=== PATIENT | male | born 1970 | race Caucasian/White ===

== ENCOUNTER 2017-09-25 11:41 | Inpatient (IN) | payer BC ==
[2017-09-25] MEDS ORDERED: Diltiazem IV* 5 MG/ML 5 ML VIAL (for loading dose/IV Push) (25 MG) IV SLOW PU ONE (12:12)
[2017-09-25 12:29] LABS: ABS Basophils 0.1 10^3/ul (0-0.2); ABS Eosinophils 0.1 10^3/ul (0-0.6); ABS Monocytes 0.8 10^3/ul (0-0.8); ABS Neutrophils 6.2 10^3/ul (1.5-7.7); ABS Nucleated RBC 0 10^3/ul; Eosinophil % 0.7 % (0-6); Hematocrit 49 % (42-52); Hemoglobin 16.4 g/dl (14.0-18.0); Lymphocyte % 21.7 % (25-47); Mean Corpuscular HGB Conc 34 g/dl (31-36); Mean Corpuscular Hemoglobin 31 pg (27-31); Mean Corpuscular Volume 91 fL (80-94); Mean Platelet Volume 9.1 um3 (7.4-10.4); Nucleated Red Blood Cells % 0.1; Platelet Count 249 10^3/ul (150-450); Red Blood Count 5.31 10^6/ul (4.00-5.40); Red Cell Distribution Width 13 % (10.5-15); White Blood Count 9.1 10^3/ul (3.5-10.8)
[2017-09-25 12:37] LABS: INR 1.09 (0.77-1.02)
[2017-09-25 12:53] LABS: EGFR Non-African American 71.8 (>60)
--- NOTE | 2017-09-25 12:57 | RAD ---
Indication: Shortness of breath. Single frontal view of the chest performed at 1224 hours was reviewed. Comparison is made with previous exam dated October 10, 2006. Large diaphragmatic hernia containing stomach is noted. This is unchanged from previous exam. Mild vascular congestion is noted. IMPRESSION: LARGE DIAPHRAGMATIC HERNIA CONTAINING STOMACH APPEARING SIMILAR TO THAT SEEN PREVIOUSLY. INTERSTITIAL EDEMA IS NOTED.
[2017-09-25] MEDS ORDERED: Diltiazem DRIP* 100 MG/100 ML ADDV.BAG IVPB ONE (13:05)
[2017-09-25] MEDS ORDERED: Diltiazem IV VIAL* 125 MG in NS 0.9% 100 ML* 100 ML IV ONE ×2 (14:00→14:58)
[2017-09-25] MEDS ORDERED: Furosemide IV* 10 MG/ML 2 ML VIAL (20 MG) IV ONE (14:14)
--- NOTE | 2017-09-25 14:40 | ED ---
Burak Fisher Tiffany, scribed for Joe Chaudhari on 09/25/17 at 1208 . Dizziness - HPI Summary HPI Summary: 46 year old M presenting to [facility] complains of intermittent episodes of dizziness followed by diaphoresis since 2 weeks ago, worse since 09:00 today. Symptoms aggravated by nothing. Symptoms alleviated by nothing. Patient reports shortness of breath. Patient denies chest pain, bilateral leg edema. Denies cardiac hx. Fhx cardiac disease. - History Of Current Complaint Chief Complaint: EDDysrhythmPalp Stated Complaint: DIZZINESS Time Seen by Provider: 09/25/17 11:49 Hx Obtained From: Patient Timing: Intermittent Episode Lasting Aggravating Factor(s): Nothing Alleviating Factor(s): Nothing Associated Signs And Symptoms: Positive: Other: - diaphoresis, shortness of breath;NEGATIVE: chest pain, bilateral leg edema. - Allergies/Home Medications Allergies/Adverse Reactions: Allergies Allergy/AdvReac Type Severity Reaction Status Date / Time No Known Allergies Allergy Verified 09/25/17 11:48 Home Medications: Home Medications Cyclobenzaprine TAB* [Flexeril 10 MG TAB*] 10 mg PO TID PRN 09/25/17 [History Confirmed 09/25/17] PMH/Surg Hx/FS Hx/Imm Hx Previously Healthy: No Endocrine/Hematology History: Denies: Hx Diabetes Cardiovascular History: Denies: Hx Hypertension, Hx Pacemaker/ICD Respiratory History: Reports: Hx Asthma Denies: Hx Chronic Obstructive Pulmonary Disease (COPD) GI History: Reports: Hx Hiatal Hernia Sensory History: Denies: Hx Hearing Aid Psychiatric History: Denies: Hx Panic Disorder - Surgical History Surgery Procedure, Year, and Place: none Infectious Disease History: No Infectious Disease History: Denies: Traveled Outside the [place] in Last 30 Days - Family History Known Family History: Positive: Cardiac Disease - Social History Alcohol Use: None Hx Substance Use: No Substance Use Type: Reports: None Hx Tobacco Use: Yes Smoking Status (MU): Current Every Day Smoker Type: Cigarettes Amount Used/How Often: 1/2 PPD Review of Systems Positive: Skin Diaphoresis Negative: Chest Pain Positive: Shortness Of Breath Negative: Edema Neurological: Other - Dizziness All Other Systems Reviewed And Are Negative: Yes Physical Exam - Summary Physical Exam Summary: Appearance: Well appearing, no pain distress Skin: warm, dry, reflects adequate perfusion Head/face: normal Eyes: EOMI, JUANITO ENT: normal Neck: supple, non-tender Respiratory: CTA, breath sounds present Cardiovascular: tachycardia Abdomen: non-tender, soft Bowel: present Musculoskeletal: normal, strength/ROM intact Neuro: normal, sensory motor intact, A&Ox3 Triage Information Reviewed: Yes Vital Signs On Initial Exam: Initial Vitals Temp Pulse Resp BP Pulse Ox 97.7 F 143 20 130/96 93 09/25/17 11:45 09/25/17 11:45 09/25/17 11:45 09/25/17 11:45 09/25/17 11:45 Vital Signs Reviewed: Yes Diagnostics - Vital Signs Vital Signs Temp Pulse Resp BP Pulse Ox 09/25/17 11:45 97.7 F 143 20 130/96 93 - Laboratory Lab Results: Lab Results 09/25/17 09/25/17 09/25/17 Range/Units 12:10 12:10 12:10 WBC 9.1 (3.5-10.8) 10^3/ul RBC 5.31 (4.00-5.40) 10^6/ul Hgb 16.4 (14.0-18.0) g/dl Hct 49 (42-52) % MCV 91 (80-94) fL MCH 31 (27-31) pg MCHC 34 (31-36) g/dl RDW 13 (10.5-15) % Plt Count 249 (150-450) 10^3/ul MPV 9.1 (7.4-10.4) um3 Neut % (Auto) 68.1 (38-83) % Lymph % (Auto) 21.7 L (25-47) % [facility] % (Auto) 8.8 H (0-7) % Eos % (Auto) 0.7 (0-6) % Baso % (Auto) 0.7 (0-2) % Absolute Neuts (auto) 6.2 (1.5-7.7) 10^3/ul Absolute Lymphs (auto) 2.0 (1.0-4.8) 10^3/ul Absolute Monos (auto) 0.8 (0-0.8) 10^3/ul Absolute Eos (auto) 0.1 (0-0.6) 10^3/ul Absolute Basos (auto) 0.1 (0-0.2) 10^3/ul Absolute Nucleated RBC 0 10^3/ul Nucleated RBC % 0.1 INR (Anticoag Therapy) 1.09 H (0.77-1.02) APTT 32.1 (26.0-36.3) seconds Sodium 140 (135-145) mmol/L Potassium 4.0 (3.5-5.0) mmol/L Chloride 102 (101-111) mmol/L Carbon Dioxide 29 (22-32) mmol/L Anion Gap 9 (2-11) mmol/L BUN 11 (6-24) mg/dL Creatinine 1.10 (0.67-1.17) mg/dL Est GFR ( Amer) 86.8 (>60) Est GFR (Non-Af Amer) 71.8 (>60) BUN/Creatinine Ratio 10.0 (8-20) Glucose 111 H (70-100) mg/dL Lactic Acid (0.5-2.0) mmol/L Calcium 9.6 (8.6-10.3) mg/dL Magnesium 1.8 L (1.9-2.7) mg/dL Total Bilirubin 0.80 (0.2-1.0) mg/dL AST 18 (13-39) U/L ALT 13 (7-52) U/L Alkaline Phosphatase 49 (34-104) U/L Troponin I 0.03 (<0.04) ng/mL B-Natriuretic Peptide ( - 100) pg/mL Total Protein 7.1 (6.4-8.9) g/dL Albumin 4.1 (3.2-5.2) g/dL Globulin 3.0 (2-4) g/dL Albumin/Globulin Ratio 1.4 (1-3) TSH 1.47 (0.34-5.60) mcIU/mL 09/25/17 09/25/17 Range/Units 12:10 12:10 WBC (3.5-10.8) 10^3/ul RBC (4.00-5.40) 10^6/ul Hgb (14.0-18.0) g/dl Hct (42-52) % MCV (80-94) fL MCH (27-31) pg MCHC (31-36) g/dl RDW (10.5-15) % Plt Count (150-450) 10^3/ul MPV (7.4-10.4) um3 Neut % (Auto) (38-83) % Lymph % (Auto) (25-47) % [facility] % (Auto) (0-7) % Eos % (Auto) (0-6) % Baso % (Auto) (0-2) % Absolute Neuts (auto) (1.5-7.7) 10^3/ul Absolute Lymphs (auto) (1.0-4.8) 10^3/ul Absolute Monos (auto) (0-0.8) 10^3/ul Absolute Eos (auto) (0-0.6) 10^3/ul Absolute Basos (auto) (0-0.2) 10^3/ul Absolute Nucleated RBC 10^3/ul Nucleated RBC % INR (Anticoag Therapy) (0.77-1.02) APTT (26.0-36.3) seconds Sodium (135-145) mmol/L Potassium (3.5-5.0) mmol/L Chloride (101-111) mmol/L Carbon Dioxide (22-32) mmol/L Anion Gap (2-11) mmol/L BUN (6-24) mg/dL Creatinine (0.67-1.17) mg/dL Est GFR ( Amer) (>60) Est GFR (Non-Af Amer) (>60) BUN/Creatinine Ratio (8-20) Glucose (70-100) mg/dL Lactic Acid 1.5 (0.5-2.0) mmol/L Calcium (8.6-10.3) mg/dL Magnesium (1.9-2.7) mg/dL Total Bilirubin (0.2-1.0) mg/dL AST (13-39) U/L ALT (7-52) U/L Alkaline Phosphatase (34-104) U/L Troponin I (<0.04) ng/mL B-Natriuretic Peptide 347 H ( - 100) pg/mL Total Protein (6.4-8.9) g/dL Albumin (3.2-5.2) g/dL Globulin (2-4) g/dL Albumin/Globulin Ratio (1-3) TSH (0.34-5.60) mcIU/mL Result Diagrams: 09/25/17 12:10 09/25/17 12:10 Lab Statement: Any lab studies that have been ordered have been reviewed, and results considered in the medical decision making process. - Radiology CXR Radiology Interpretation Completed By: Radiologist - LARGE DIAPHRAGMATIC HERNIA CONTAINING STOMACH APPEARING SIMILAR TO THAT SEEN PREVIOUSLY. INTERSTITIAL EDEMA IS NOTED. ED physician has reviewed this report. - EKG 11:57 Cardiac Rate: Tachycardia - 144 BPM EKG Rhythm: Sinus Tachycardia Dizzy Course/Dx - Course Course Of Treatment: 46 year old M presenting to [facility] complains of intermittent episodes of dizziness followed by diaphoresis since 2 weeks ago, worse since 09:00 today. Bloodwork/UA obtained. CXR/EKG obtained. Patient will be admitted to Dr. San, hospitalist, for further evaluation. - Diagnoses Differential Diagnosis/HQI/PQRI: Dysrhythmia, Metabolic Abnormality Provider Diagnoses: Chest pain, Atrial flutter - Provider Notifications Discussed Care Of Patient With: Tobias Sna Time Discussed With Above Provider: 14:07 Instructed by Provider To: Other - Dr. San, hospitalist, agrees to admit patient. - Critical Care Time Critical Care Time: 30-74 min - 30 min Discharge - Sign-Out/Discharge Documenting (check all that apply): Discharge/Admit/Transfer - admit - Discharge Plan Condition: Fair Disposition: ADMITTED TO [facility] Referrals: Familia Taveras MD [Primary Care Provider] - - Billing Disposition and Condition Condition: FAIR Disposition: Admitted to [facility] The documentation as recorded by the Burak jiménez Tiffany accurately reflects the service I personally performed and the decisions made by , Joe Chaudhari.
[2017-09-25] MEDS ORDERED: Albuterol 2.5 MG/3 ML NEB.SOL* (0.083%) INH PRN (14:59)
[2017-09-25] MEDS ORDERED: Magnesium Hydroxide LIQ* 30 ML UDC PO PRN (14:59)
[2017-09-25] MEDS ORDERED: Al Hydrox/Mg Hydrox/Simet LIQ* 30 ML UDC PO PRN (14:59)
[2017-09-25] MEDS ORDERED: Cyclobenzaprine TAB* 10 MG PO PRN (15:03)
[2017-09-25] MEDS ORDERED: Metoprolol Tartrate TAB* 50 mg PO ONE (15:28)
[2017-09-25] MEDS ORDERED: Aspirin 81 mg CHEW TAB* 81 MG TAB.CHEW PO ONE (15:29)
--- NOTE | 2017-09-25 18:16 | HP ---
CC: Dr. Taveras.* ADMISSION HISTORY AND PHYSICAL: DATE OF ADMISSION: 09/25/17. PATIENT OF ATTENDING HOSPITALIST: Dr. Chandra San.* (DICTATED BY MAMADOU AGUILAR) PRIMARY CARE PHYSICIAN: Dr. Taveras. CHIEF COMPLAINT: 1. Dizziness. 2. Shortness of breath. 3. Diaphoresis. 4. Palpitations. HISTORY OF PRESENT ILLNESS: Mr. Grubbs is a 46-year-old gentleman who carries past medical history significant for chronic back pain as well as kyphosis, who presented to the emergency room today with complaints of 3 weeks' history of intermittent dizziness with associated shortness of breath, diaphoresis, and palpitations usually with exertion. The patient notes that for the past 2 to 3 weeks, he has noticed increasing dizziness and shortness of breath with minimal exertion, associated with diaphoresis and palpitations. However, he denies any chest pain, nausea, vomiting, or other associated symptoms. He had never been seen by a carbide operator in the past and never had any cardiac workup. He does not have any significant past medical history with the exception of obesity and chronic back pain related to kyphosis that was diagnosed when he was in high school and elected not proceed with surgery. He denies any fevers, chills, abdominal pain, back pain rather than his baseline back pain discomfort. He is a former smoker, who quit just a few days ago and used to smoke 1 pack per day for approximately past 30 years. He has significant family history of diabetes mellitus and coronary artery disease and his dad had NM at an early age. He was evaluated in the emergency room and noticed to have negative troponin. However, his EKG showed sinus tachycardia with questionable atrial flutter for which we were asked to see the patient for further evaluation of his dysrhythmia. At the time of admission, the patient was comfortable, denies any palpitations or chest pain. PAST MEDICAL HISTORY: As mentioned above, is significant for: 1. Chronic back pain secondary to kyphosis. 2. Morbid obesity. PAST SURGICAL HISTORY: None. CURRENT MEDICATIONS: Include: 1. Flexeril 10 mg p.o. t.i.d. 2. Ultram 100 mg p.o. q. 8 hours p.r.n. for pain. ALLERGIES: He has no known drug allergies. FAMILY HISTORY: Significant for diabetes mellitus and history of myocardial infarction in his dad as well. SOCIAL HISTORY: The patient is a former smoker, used to smoke 1 pack per day for 30 years and quit smoking a week ago. He denies alcohol intake and caffeine intake is minimal. 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 His healthcare proxy is carried by his . REVIEW OF SYSTEMS: See HPI, otherwise 14 points review of systems were evaluated and they were otherwise negative. PHYSICAL EXAMINATION GENERAL: He is a pleasant, obese gentleman, appears comfortable and in no acute distress or discomfort at the time of admission. VITAL SIGNS: Reveal blood pressure of 113/87, pulse of 142, temperature of 97.7 , respirations of 19 with O2 sat of 93% on room air. HEENT: Head is normocephalic, atraumatic. Sclerae anicteric. PERRLA. EOMs intact. Oropharynx is pink and moist. NECK: Supple. Trachea midline. No cervical adenopathy, thyromegaly, or JVD. LUNGS: Clear to auscultation bilaterally. HEART: Regular rate with a rapid rhythm, consistent with tachycardia. There were no rubs, murmurs or gallops. BACK: With a noticeable kyphotic curve at the thoracic spine. No tenderness noted on exam. ABDOMEN: Round, obese, nontender, and nondistended. No hernias, masses, or hepatosplenomegaly. EXTREMITIES: Without cyanosis, clubbing, or edema. NEUROLOGIC: He is awake, alert, and oriented x4, and neurological exam was grossly normal. RECTAL: Exam deferred at this time. LABORATORY WORKUP: CBC with white count of 9000, hemoglobin 16.4, hematocrit of 49, and platelets of 249. His chemistry panel with sodium of 140, potassium 4.0, chloride 102, CO2 29, BUN of 11, creatinine 1.1. His glucose is 111, lactic acid 1.5, magnesium 1.8. Troponin 0.03 first draw, and the second draw 3 hours later was 0.02. BNP was elevated with value of 347. His TSH is 1.47. ACCESSORY DIAGNOSTIC DATA: As mentioned above, his EKG revealed evidence of sinus tachycardia at a rate of 140 beats per minute. Chest x-ray revealing a large diaphragmatic hernia containing a portion of the stomach, appears similar to a previous study and he has some interstitial edema noted as well. ASSESSMENT: A 46-year-old gentleman with a past medical history significant for chronic back pain and obesity, who presented to the emergency room with a 2 to 3 weeks' history of intermittent dizziness, palpitations, shortness of breath on exertion, and found to have an EKG consistent with sinus tachycardia and questionable atrial flutter. PLAN: 1. Tachycardia. The patient will be admitted to telemetry unit for observation. Cardizem drip was initiated in the emergency room initially at 5 mg per hour and now at 10 mg per hour. We will also give him a dose of metoprolol for rate control as well as a dose of 81 mg of aspirin. He appears to be comfortable and has no ongoing symptoms related to his palpitations. The patient has risk factors for coronary syndrome including his age, morbid obesity , and strong family history. He has never had any cardiac workup done in the past. I will obtain a trending troponin. Check lipid panel in the morning and proceed with nuclear stress test and echocardiogram in the morning. I discussed with the patient all the possible scenario related to his palpitations , tachycardia, and he is agreeable to the plan of care. 2. Chronic back pain secondary to thoracic spine kyphosis. This has been a chronic issue for the patient and appears to be stable at this time. We will continue his tramadol and Flexeril as needed for pain or muscle spasm. 3. Morbid obesity. Supportive care. 4. Shortness of breath with elevated BNP likely in the setting of pulmonary edema. He appears to be stable with good sats and his blood pressure has been stable as well. I will discuss this with my attending if a dose of Lasix will be beneficial. 5. DVT prophylaxis. The patient is moderate risk and we will cover him with sequential stocking device for the time being. 6. Code status. He is a full code. 7. Disposition. Admit to Telemetry for observation. Await resolution of his tachycardia. Cardiac workup in the morning including a stress test, echocardiogram, and await results. TIME SPENT: Approximately 60 minutes were spent admitting this patient, with greater than 50% on taking history and performing physical exam. I have discussed the case with Dr. San, who agreed to the plan of care. MAMADOU AGUILAR [id number]/[facility] #: [id number] FRANCIS
[2017-09-25] MEDS ORDERED: NS 0.9% 500 ML* 500 ML IV ONE (18:35)
[2017-09-25] MEDS ORDERED: Diltiazem IV VIAL* 125 MG in NS 0.9% 100 ML* 100 ML IV SCH ×3 (19:00→21:00)
[2017-09-25] MEDS ORDERED: Iohexol 350* (CONTRAST) 500 ML MDV IV ONE (20:00)
--- NOTE | 2017-09-25 20:39 | RAD ---
INDICATION: Chest pain. Short of breath. Intrathoracic stomach. Interstitial edema. Evaluate for pulmonary embolus. COMPARISON: Chest x-ray September 25, 2017 TECHNIQUE: Axial source images were obtained from the thoracic inlet to the hemidiaphragms following administration of [address] angiographic technique was utilized. Coronal and sagittal reconstructed images were acquired. CHEST FINDINGS: Neck/thyroid: The visualized neck to include the thyroid appear normal. Chest wall: There are no acute abnormalities of the bony thorax or chest wall. There is osteopenia with kyphosis There is no supraclavicular, infraclavicular, or axillary lymphadenopathy. Lungs : There is interstitial edema with bibasilar atelectasis. There is no focal consolidation. Cardiomediastinal structures: There is no CT evidence of acute pulmonary embolic disease. The heart is normal in size. There is no pericardial effusion. There is no evidence of aortic aneurysm or dissection. There is no mediastinal or hilar adenopathy. The esophagus appears normal. Pleura : There are no pleural-based masses or effusions. Other: There is a large diaphragmatic defect with herniation of the stomach which is horizontally oriented within the chest. There is also herniation of portions of both the right and left colon. The visceral contents compromise aeration of the lower lung hoffman and exert mass effect upon the mediastinal structures. IMPRESSION: NO CT EVIDENCE OF ACUTE PULMONARY EMBOLIC DISEASE. LARGE DIAPHRAGMATIC DEFECT DESCRIBED.
[2017-09-25] MEDS ORDERED: Furosemide IV* 10 MG/ML 10 ML VIAL (100 MG) IV ONE (20:52)
--- NOTE | 2017-09-26 01:00 | DS ---
Date of Admission: Date of Discharge: Discharge Diagnoses HPI Hospital Course Discharge Exam Radiology Exams Discharge Medications NEW RESUME STOP Discharge Activity: Discharge Diet: Follow Up/CC Time for Discharge:
[2017-09-26] MEDS ORDERED: Diltiazem IV VIAL* 125 MG in NS 0.9% 100 ML* 100 ML IV SCH (05:43)
[2017-09-26 05:53] LABS: ABS Basophils 0.1 10^3/ul (0-0.2); ABS Eosinophils 0.1 10^3/ul (0-0.6); ABS Lymphocytes 2.4 10^3/ul (1.0-4.8); ABS Monocytes 0.9 10^3/ul (0-0.8); ABS Neutrophils 5.4 10^3/ul (1.5-7.7); ABS Nucleated RBC 0 10^3/ul; Hematocrit 48 % (42-52); Hemoglobin 15.6 g/dl (14.0-18.0); Lymphocyte % 26.9 % (25-47); Mean Corpuscular HGB Conc 33 g/dl (31-36); Mean Corpuscular Hemoglobin 30 pg (27-31); Mean Corpuscular Volume 92 fL (80-94); Mean Platelet Volume 9.5 um3 (7.4-10.4); Nucleated Red Blood Cells % 0.1; Platelet Count 235 10^3/ul (150-450); Red Blood Count 5.16 10^6/ul (4.00-5.40); Red Cell Distribution Width 13 % (10.5-15); White Blood Count 8.8 10^3/ul (3.5-10.8)
[2017-09-26 06:02] LABS: EGFR Non-African American 73.3 (>60)
[2017-09-26] MEDS ORDERED: Perflutren Lipid Microsphere* 3 ML VIAL ONE (07:53)
[2017-09-26] MEDS ORDERED: Metoprolol Tartrate TAB* 50 mg PO SCH (08:00)
[2017-09-26] MEDS ORDERED: Aspirin 81 mg CHEW TAB* 81 MG TAB.CHEW PO ONE (08:45)
--- NOTE | 2017-09-26 08:51 | ECHO ---
Patient: PIPE MONTALVO [facility] Rec#: [id number] : 1970 Date: 09/26/2017 Age: 46y Height: 190.5 cm / 75.0 in Weight: 136.53 kg / 300.9 lbs Sex: M BSA: 2.61 Room#: 431 Admit Date#: 09/25/2017 Type: Inpatient Referring: Renard Francois Reading: Fabrice Dey MD Flakeboard Line Tender: Nicolasa Copeland RDCS CC: Familia Taveras MD Transthoracic Echocardiogram Indication: Palpitations, dyspnea. BP: 104/56 HR: 83 Rhythm: A-Flutter Findings History: Morbid obesity, former smoker, 2-3 weeks of dyspnea and dizziness. Technical Comments: The study is technically difficult. The study is technically limited due to patient body habitus. Completed at 0840. Left Ventricle: The left ventricular chamber size is mildly dilated. There is no left ventricular hypertrophy. There is global hypokinesis of the left ventricle with minor regional variation. There is severely decreased left ventricular systolic function. The estimated ejection fraction is 20-25%. There is septal flattening of the interventricular septum consistent with right ventricular volume or pressure overload. The assessment of diastolic function is non-diagnostic. Left Atrium: The left atrium is mildly dilated. Right Ventricle: The right ventricle is not well visualized. The right ventricle is mildly dilated. The right ventricular global systolic function is moderately reduced. Right Atrium: The right atrium is mildly dilated. Aortic Valve: The aortic valve is trileaflet. The aortic valve leaflets are mildly thickened. There is a trace of aortic regurgitation. There is no evidence of aortic stenosis. Mitral Valve: The mitral valve leaflets are mildly thickened. There is mild mitral regurgitation. There is no evidence of mitral stenosis. Tricuspid Valve: The tricuspid valve structure is not well visualized. There is mild tricuspid regurgitation. The right ventricular systolic pressure is estimated at 38 mmHg. There is evidence of mild pulmonary hypertension. There is no tricuspid stenosis. Pulmonic Valve: The pulmonic valve appears normal. There is mild pulmonic regurgitation. There is no pulmonic stenosis. Pericardium: There is no significant pericardial effusion. A pericardial fat pad is visualized. Aorta: There is no dilatation of the ascending aorta. There is no dilatation of the aortic arch. The aortic root is normal in size. Pulmonary Artery: The main pulmonary artery appears normal. Venous: The inferior vena cava is dilated. There is less than 50% respiratory change in the inferior vena cava dimension. Contrast: Definity was used to optimize study. 4 mL of diluted Definity was utilized. Intravenous contrast was used to enhance endocardial border definition. Summary: There was not any prior study for comparison. Conclusions Atrial fibrillation or atrial flutter during exam. There is severely decreased left ventricular systolic function. There is septal flattening of the interventricular septum consistent with right ventricular volume or pressure overload. The left atrium is mildly dilated. The right ventricle is mildly dilated. The right ventricular global systolic function is moderately reduced. The right atrium is mildly dilated. The aortic valve leaflets are mildly thickened. There is a trace of aortic regurgitation. There is mild mitral regurgitation. There is mild tricuspid regurgitation. The right ventricular systolic pressure is estimated at 38 mmHg. There is evidence of mild pulmonary hypertension. There is mild pulmonic regurgitation. Measurements Name Value Normal Range RVIDd (AP) 2D 3.5 cm (0.9 - 2.6) RVDdMajor (2D) 4.8 cm (2.2 - 4.4) RVAW (2D) 0.7 cm (0.2 - 0.5) RAd ISD 4CH 5.2 cm (3.4 - 4.9) RA (A4C)W 4.9 cm (2.9 - 4.6) IVSd (2D) 1 cm (0.6 - 1) LVPWd (2D) 1 cm (0.6 - 1) LVIDd (2D) 5.8 cm (3.6 - 5.4) LVIDs (2D) 5.3 cm - LV FS (2D) 9 % (25 - 45) Aortic Annulus 2.3 cm (1.4 - 2.6) Ao root diameter (2D) 3.2 cm (2.1 - 3.5) Ascending Ao 3.2 cm (2.1 - 3.4) Aortic arch 3 cm (1.8 - 3.4) LA dimension (AP) 2D 4.3 cm (2.3 - 3.8) LAd ISD 4CH 5.4 cm (2.9 - 5.3) LA ISD 4CH W 4.8 cm (2.5 - 4.5) Name Value Normal Range LA ESV SP 4CH (A/L) 60 ml - LA ESV SP 2CH (A/L) 115 ml - LA ESV BP (A/L) 91 ml - LA ESV BP (A/L) index 35 ml/m2 - LA ESV SP 4CH (MOD) 53 ml - LA ESV SP 2CH (MOD) 109 ml - Name Value Normal Range MV E-wave Vmax 1.01 m/sec - MV deceleration time 132.5 msec - MV A-wave Vmax 0.58 m/sec - MV E:A ratio 1.77 ratio - LV septal e' Vmax 0.06 m/sec - LV lateral e' Vmax 0.05 m/sec - LV E:e' septal ratio 16.83 ratio - LV E:e' lateral ratio 20.2 ratio - Name Value Normal Range AV Vmax 1 m/sec - AV VTI 21.25 cm - AV peak gradient 4.07 mmHg - AV mean gradient 2.53 mmHg - LVOT Vmax 0.77 m/sec - LVOT VTI 13.1 cm - LVOT peak gradient 2.36 mmHg - LVOT mean gradient 1.38 mmHg - FLORENCE Vmax 0.75 m/sec - Name Value Normal Range TR Vmax 2.4 m/sec - TR peak gradient 23 mmHg - RAP 15 mmHg - RVSP 38 mmHg - IVC diameter 2.3 cm - Name Value Normal Range PV Vmax 0.69 m/sec - PV peak gradient 1.9 mmHg -
[2017-09-26] MEDS ORDERED: Metoprolol Tartrate IV* 1 MG/ML 5 ML VIAL IV PRN ×2 (09:47→12:05)
[2017-09-26] MEDS: Apixaban* 5 MG TAB PO SCH ×2 (11:18→21:57)
--- NOTE | 2017-09-26 13:10 | RAD ---
INDICATION: Palpitations. COMPARISON: September 25, 2017 CT chest. TECHNIQUE: 10.400 mCi of Tc-99m Myoview were administered IV. SPECT images of the heart were obtained. REPORT AND IMPRESSION: #. The resulting resting scintigraphic images are nondiagnostic due to distortion of the mediastinum and soft tissue attenuation resulting from the massive hiatal hernia with anterior displacement of the heart by the intrathoracic stomach. On this basis the stress portion of the exam was canceled.
[2017-09-26] MEDS ORDERED: fentaNYL* 50 MCG/ML 2 ML VIAL (100 MCG VIAL) ONE (13:30)
[2017-09-26] MEDS ORDERED: Naloxone* 0.4 MG/ML 1 ML VIAL ONE (13:30)
[2017-09-26] MEDS ORDERED: Flumazenil* 0.1 MG/ML 5 ML MDV ONE (13:30)
[2017-09-26] MEDS ORDERED: Midazolam* 1 MG/ML 10 ML VIAL (10 MG) ONE (13:31)
[2017-09-26] MEDS ORDERED: Lisinopril TAB* 5 MG PO SCH (15:00)
[2017-09-26] MEDS ORDERED: Metoprolol Tartrate TAB* 25 MG PO SCH (15:41)
--- NOTE | 2017-09-26 15:42 | PN ---
Subjective Date of Service: 09/26/17 Interval History: Somewhat better, no more palpitations after cardioversion. Back pain not bad. Objective Active Medications: Acetaminophen (Tylenol Tab*) 650 mg PO Q4H PRN PRN Reason: FEVER/PAIN Al Hydrox/Mg Hydrox/Simethicone (Maalox Plus*) 30 ml PO Q6H PRN PRN Reason: INDIGESTION Albuterol (Ventolin 2.5 Mg/3 Ml Neb.Silvia*) 2.5 mg INH [id number] AWAKE PRN PRN Reason: sob/wheezing Apixaban (Eliquis*) 5 mg PO BID [facility] Last Admin: 09/26/17 11:18 Dose: 5 mg Aspirin (Aspirin 81 Mg Chew Tab*) 81 mg PO DAILY [facility] Captopril (Capoten Tab*) 6.25 mg PO TID [facility] Cyclobenzaprine HCl (Flexeril Tab*) 10 mg PO TID PRN PRN Reason: PAIN - BACK Magnesium Sulfate/Dextrose (Magnesium Sulfate 1 Gm Iv*) 1 gm in 100 mls @ 200 mls/hr IV ONCE ONE Stop: 09/26/17 15:58 Magnesium Hydroxide (Milk Of Kishor Dwasonq*) 30 ml PO Q4H PRN PRN Reason: CONSTIPATION Metoprolol Tartrate (Lopressor Tab*) 50 mg PO Q12H [facility] Last Admin: 09/26/17 09:32 Dose: 50 mg Metoprolol Tartrate (Lopressor Iv*) 5 mg IV Q2H PRN PRN Reason: HEART RATE/PULSE GREATER THAN: Tramadol HCl (Ultram*) 100 mg PO Q8H PRN PRN Reason: PAIN Vital Signs - 8 hr 09/26/17 09/26/17 09/26/17 08:27 09:34 11:13 Temperature 97.7 F 97.9 F Pulse Rate 46 112 51 Respiratory 16 20 Rate Blood Pressure 107/60 113/69 141/93 (mmHg) O2 Sat by Pulse 98 97 Oximetry 09/26/17 12:46 Temperature Pulse Rate 96 Respiratory Rate Blood Pressure (mmHg) O2 Sat by Pulse Oximetry Oxygen Devices in Use Now: Nasal Cannula Appearance: Alert, partly up on [facility] stretcher. In fair spirits. Looks comfortable. Eyes: No Scleral Icterus Respiratory: Symmetrical Chest Expansion and Respiratory Effort, Clear to Auscultation, Clear to Percussion Cardiovascular: NL Sounds; No Murmurs; No JVD, RRR, No Edema, - Extremities: No Edema, No Clubbing, Cyanosis, - Skin: No Rash or Ulcers, No Nodules or Sclerosis Neurological: Alert and Oriented x 3, NL Sensation Result Diagrams: 09/26/17 05:23 09/26/17 05:23 Additional Lab and Data: Lab Results 09/25/17 09/25/17 09/25/17 Range/Units 12:10 12:10 12:10 WBC 9.1 (3.5-10.8) 10^3/ul RBC 5.31 (4.00-5.40) 10^6/ul Hgb 16.4 (14.0-18.0) g/dl Hct 49 (42-52) % MCV 91 (80-94) fL MCH 31 (27-31) pg MCHC 34 (31-36) g/dl RDW 13 (10.5-15) % Plt Count 249 (150-450) 10^3/ul MPV 9.1 (7.4-10.4) um3 Neut % (Auto) 68.1 (38-83) % Lymph % (Auto) 21.7 L (25-47) % [place] % (Auto) 8.8 H (0-7) % Eos % (Auto) 0.7 (0-6) % Baso % (Auto) 0.7 (0-2) % Absolute Neuts (auto) 6.2 (1.5-7.7) 10^3/ul Absolute Lymphs (auto) 2.0 (1.0-4.8) 10^3/ul Absolute Monos (auto) 0.8 (0-0.8) 10^3/ul Absolute Eos (auto) 0.1 (0-0.6) 10^3/ul Absolute Basos (auto) 0.1 (0-0.2) 10^3/ul Absolute Nucleated RBC 0 10^3/ul Nucleated RBC % 0.1 INR (Anticoag Therapy) 1.09 H (0.77-1.02) APTT 32.1 (26.0-36.3) seconds Sodium 140 (135-145) mmol/L Potassium 4.0 (3.5-5.0) mmol/L Chloride 102 (101-111) mmol/L Carbon Dioxide 29 (22-32) mmol/L Anion Gap 9 (2-11) mmol/L BUN 11 (6-24) mg/dL Creatinine 1.10 (0.67-1.17) mg/dL Est GFR ( Amer) 86.8 (>60) Est GFR (Non-Af Amer) 71.8 (>60) BUN/Creatinine Ratio 10.0 (8-20) Glucose 111 H (70-100) mg/dL Lactic Acid (0.5-2.0) mmol/L Calcium 9.6 (8.6-10.3) mg/dL Magnesium 1.8 L (1.9-2.7) mg/dL Total Bilirubin 0.80 (0.2-1.0) mg/dL AST 18 (13-39) U/L ALT 13 (7-52) U/L Alkaline Phosphatase 49 (34-104) U/L Troponin I 0.03 (<0.04) ng/mL B-Natriuretic Peptide ( - 100) pg/mL Total Protein 7.1 (6.4-8.9) g/dL Albumin 4.1 (3.2-5.2) g/dL Globulin 3.0 (2-4) g/dL Albumin/Globulin Ratio 1.4 (1-3) TSH 1.47 (0.34-5.60) mcIU/mL 09/25/17 09/25/17 Range/Units 12:10 12:10 WBC (3.5-10.8) 10^3/ul RBC (4.00-5.40) 10^6/ul Hgb (14.0-18.0) g/dl Hct (42-52) % MCV (80-94) fL MCH (27-31) pg MCHC (31-36) g/dl RDW (10.5-15) % Plt Count (150-450) 10^3/ul MPV (7.4-10.4) um3 Neut % (Auto) (38-83) % Lymph % (Auto) (25-47) % [place] % (Auto) (0-7) % Eos % (Auto) (0-6) % Baso % (Auto) (0-2) % Absolute Neuts (auto) (1.5-7.7) 10^3/ul Absolute Lymphs (auto) (1.0-4.8) 10^3/ul Absolute Monos (auto) (0-0.8) 10^3/ul Absolute Eos (auto) (0-0.6) 10^3/ul Absolute Basos (auto) (0-0.2) 10^3/ul Absolute Nucleated RBC 10^3/ul Nucleated RBC % INR (Anticoag Therapy) (0.77-1.02) APTT (26.0-36.3) seconds Sodium (135-145) mmol/L Potassium (3.5-5.0) mmol/L Chloride (101-111) mmol/L Carbon Dioxide (22-32) mmol/L Anion Gap (2-11) mmol/L BUN (6-24) mg/dL Creatinine (0.67-1.17) mg/dL Est GFR ( Amer) (>60) Est GFR (Non-Af Amer) (>60) BUN/Creatinine Ratio (8-20) Glucose (70-100) mg/dL Lactic Acid 1.5 (0.5-2.0) mmol/L Calcium (8.6-10.3) mg/dL Magnesium (1.9-2.7) mg/dL Total Bilirubin (0.2-1.0) mg/dL AST (13-39) U/L ALT (7-52) U/L Alkaline Phosphatase (34-104) U/L Troponin I (<0.04) ng/mL B-Natriuretic Peptide 347 H ( - 100) pg/mL Total Protein (6.4-8.9) g/dL Albumin (3.2-5.2) g/dL Globulin (2-4) g/dL Albumin/Globulin Ratio (1-3) TSH (0.34-5.60) mcIU/mL Assess/Plan/Problems-Billing Assessment: - Patient Problems (1) Atrial flutter Current Visit: Yes Status: Acute Code(s): I48.92 - UNSPECIFIED ATRIAL FLUTTER SNOMED Code(s): 5033078 Comment: Successful cardrioversion after 2 shocks. L atrial appendage visualized. Continue metoprolol, apixaban, ASA. (2) Cardiomyopathy Current Visit: Yes Status: Acute Code(s): I42.9 - CARDIOMYOPATHY, UNSPECIFIED SNOMED Code(s): 64037227 Comment: Possibly tachycardi-induced. Will eventually need an ischemic wup, could start with cardiac CTA. Nuclear stress test not technically feasible due to his anatomy. Start captopril 09/26. (3) Snoring Current Visit: Yes Status: Acute Code(s): R06.83 - SNORING SNOMED Code(s) : 76923478 Comment: Pt states his tells him he snores a lot. He had a sleep lab study a few years ago, ? was not given any tx. Overnight oximetry on 2 L or lowest O2 flow that give baseline O2 sat > 88% ordered. (4) Chronic back pain Current Visit: Yes Status: Acute Code(s): M54.9 - DORSALGIA, UNSPECIFIED; G89.29 - OTHER CHRONIC PAIN SNOMED Code(s): 172464829 Comment: Tramadol PRN home dose. (5) Electrolyte abnormality Current Visit: Yes Status: Acute Code(s): E87.8 - OTH DISORDERS OF ELECTROLYTE AND FLUID BALANCE, NEC SNOMED Code(s): 528188537 Comment: PO potassium and magnesium ordered.
[2017-09-26] MEDS ORDERED: Magnesium Sulfate 1 GM IV* 1 GM/100 ML BAG IV ONE (16:00)
[2017-09-26] MEDS: Captopril TAB* 12.5 MG PO SCH ×2 (16:33→21:57)
[2017-09-26] MEDS: Magnesium Oxide TAB* 400 MG PO SCH (16:33)
[2017-09-26] MEDS: Potassium Chlor TAB* 10 MEQ TAB.ER PO SCH ×2 (16:33→21:56)
--- NOTE | 2017-09-26 18:27 | TEE ---
Amended Report Patient: PIPE MONTALVO [facility] Rec#: [id number] : 1970 Date: 09/26/2017 Age: 46y Height: 191 cm / 75.2 in Weight: 136 kg / 299.7 lbs Sex: M BSA: 2.61 Room#: 431 Admit Date#: 09/25/2017 Type: Inpatient Referring: Fabrice Dey MD Performing: Fabrice Dey MD Reading: Fabrice Dey MD Paid Search Specialist: Rosangela Gaytan RD,RDMS Nurse: Joaquin Thorne RN Transesophageal Echocardiogram Indication: AFLUTTER BP: 108/75 HR: 132 Rhythm: A-Flutter Findings History: Morbid obesity, former smoker. Technical Comments: The study is technically difficult. The study is technically limited due to poor acoustic windows. Mediastinal structures are shifted due to large hiatal hernia. Left Atrium: The left atrium is mildly dilated. There is no thrombus visualized in the left atrial appendage. Low doppler velocities noted. Aortic Valve: There is no evidence of aortic valve thickening. Systolic excursion of the aortic valve is normal. There is no evidence of aortic regurgitation. There is no evidence of aortic stenosis. Mitral Valve: The mitral valve leaflets appear normal. There is mild mitral regurgitation. Venous: The pulmonary veins appear normal.No reversal noted in the 4 veins by doppler. YANIRA Procedures: The procedure was abbreviated due to the patient's medical condition.The LV, RV, TV , PV, and PA were not visualized. The imaging was suboptimal due to the hiatal hernia and the test was abbreviated due to coughing. History and physical as well as labs were reviewed. The patient was in a fasting state. Risks and benefits of the procedure, including alternatives, were discussed and written informed consent was obtained. The patient and/or their health care customer service representative expressed understanding of the procedure, risks and benefits. Baseline and continuous monitoring of blood pressure, heart rate, pulse oximetry and heart rhythm was performed throughout the procedure. The appropriate time-out procedure was performed as per [facility] protocol. The patient was placed in the left lateral decubitus position. The patient received IV Midazolam with a total dose of 5 mg. The patient received IV Fentanyl with a total dose of 75 mcg. An oral bite block was inserted for protection of oral dentition. The multiplane transesophageal echocardiogram probe was inserted through the posterior oropharynx and advanced into the esophagus without difficulty. Multiple 2D images were obtained of the heart and its related structures. Color flow Doppler was used for evaluation. Procedure was aborted due to respiratory distress post extubation. Romazicon was give in recovery to reverse affects of Midazolam and Fentanyl At the conclusion of the procedure the probe was removed with continuous suction without complications. Conclusions The study is technically limited due to poor acoustic windows. Mediastinal structures are shifted due to large hiatal hernia. The procedure was abbreviated due to the patient's medical condition. The left atrium is mildly dilated. There is no thrombus visualized in the left atrial appendage. There is mild mitral regurgitation. The aortic valve, ascending aorta were seen in the long axis view and appeared to be normal
--- NOTE | 2017-09-26 20:28 | CONS ---
CC: Dr. Taveras; Dr. Dey * CARDIOLOGY CONSULTATION: DATE OF CONSULT: 09/26/17 PATIENT OF: Dr. Taveras and Dr. Dey. REASON FOR EVALUATION: Cardiomyopathy, A-flutter. HISTORY OF PRESENT ILLNESS: This is a 46-year-old gentleman with a history of obesity and severe kyphosis and a severe hiatal hernia. He said he has been feeling more limited over the last 2 to 3 weeks. He has had some spells of feeling his heart racing when he is walking and more shortness of breath and dizzy spells. These can be momentary and resolve with stopping. He has also had some cold sweats. Because of worsening symptoms yesterday with dizziness and shortness of breath with walking, he decided to come to the emergency room. He was found to be in atrial flutter with a rapid ventricular response in the 140s. He was treated with some rate control medicines, but persists in atrial flutter. An echocardiogram was performed today, which revealed mild concentric LVH, global hypokinesis, severely decreased LV function, estimated EF is 20% to 25%. There was septal flattening of the interventricular septum consistent with right ventricular pressure or volume overload. Left atrium was mildly dilated. There was mild tricuspid regurgitation, estimated PA pressure of 38, mild MR, pericardial fat pad, trace AI, mild TI. The patient denies hypertension, diabetes. PAST MEDICAL HISTORY: Includes chronic back pain, large hiatal hernia, kyphosis. He has a history of snoring, but said he had a negative sleep study a few years ago. He sleeps on his side. PAST SURGICAL HISTORY: He denies any past surgeries. MEDICATIONS: His medications as an outpatient include: 1. Flexeril 10 mg a day. 2. Tramadol 100 mg q.8 p.r.n. As an inpatient he is on: 1. Albuterol q.4 while awake. 2. Eliquis 5 mg b.i.d. 3. Aspirin 81 mg a day. 4. Metoprolol 50 mg q.12. 5. Tramadol 100 mg q.8 p.r.n. 6. Milk of magnesia 30 cc q.4 p.r.n. ALLERGIES: He denies any allergies. FAMILY HISTORY: He has 1 brother and 1 sister, alive and well. Mother who is 83 and alive and well. Father of a CVA with diabetes and coronary disease at 72. SOCIAL HISTORY: He has history of tobacco use a pack per day for 20 years, discontinued last week. He drinks caffeine, 2 large cups a day plus 2 to 3 cans of cola a day. He has 1 to 2 alcoholic beverages a year. He is and has 1 child with his and 2 stepchildren. The youngest daughter is 20 years old. ROS x 10 negative except as above. PHYSICAL EXAM: He is a well-developed, obese gentleman, in no apparent distress. He is in atrial flutter with a heart rate in the low 100s, blood pressure was 108/73. JVD was difficult to assess due to neck habitus. Atraumatic, normocephalic. Extraocular muscles intact. Cardiac Exam: S1, S2, distant. No clear murmurs, gallops or rubs. There was severe kyphosis and chest wall deformity. Abdomen: Bowel sounds present. Nontender, obese. Femoral pulses intact without bruits. Distal pulses intact. No significant edema. There were some chronic venous stasis changes. Motor strength 5/5 bilaterally. Deep tendon reflexes 2/4. Alert and oriented x3. DIAGNOSTIC STUDIES/LAB DATA: Include a normal CBC, hematocrit of 48. Sodium of 138, potassium of 3.9, BUN of 17, creatinine of 1.08. Troponins 0.02, 0.02, 0.01. BNP elevated at 347. Cholesterol 154, LDL 99, HDL 35, triglycerides of 98. Magnesium low 1.8. CTA of the chest from yesterday revealed no PE, large diaphragmatic defect as described, herniation of the stomach, which is horizontally oriented within the chest, also herniation of portions of both the right and left colon, visceral contents, compromised aeration of the lower lung hoffman and a mass effect on the mediastinal structures. EKG from yesterday revealed what appeared to be an atrial flutter with a rapid ventricular response of 144, possible right bundle branch, nonspecific IVCD and right axis deviation and repeat EKG from this morning revealed what appeared to be atrial flutter with bigeminal pattern, QR in V1 raises a possibility of RVH. Repeat EKG from 09/26/17 revealed sinus rhythm with a right bundle branch block , QR in V1 and V2 raises a possibility of RVH, right axis deviation and left atrial enlargement. He underwent a YANIRA-guided cardioversion, see separate report. IMPRESSION AND PLAN: My impression is that Mr. Grubbs presents with 2 to 3 weeks of feeling poorly with worsening dyspnea on exertion and lightheadedness, found to be in atrial flutter with a rapid ventricular response and cardiomyopathy. He also has comorbidities of kyphosis and significant diaphragmatic hernias, which may be contributing to compromise of his exercise capacity. The etiology of his cardiomyopathy is unclear, but may be related to tachycardia-induced cardiomyopathy. He certainly has risk factors for coronary artery disease as well. He also may have some degree of cor pulmonale based on the thoracic abnormalities and chronic tobacco use. I explained to the patient the risks and benefits of an attempt at cardioversion and he agreed and we proceeded. He also understands the cardioembolic risks. 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 Any procedure in him would be complicated by his anatomic abnormalities, which would put him at increased risk for complications. He also may benefit from evaluation of his ventral hernias, which seemed to be compromising his pulmonary mechanics and put him at risk for progressive dysfunction as well as potential incarceration of his abdominal organs. I discussed this with him and with Dr. San. For the time being, I would recommend the following: We would continue with a low dose of beta sherry and advance his heart failure regimen as blood pressure will allow. Would start with a low dose of captopril and advance as tolerated. Would continue with the beta-sherry to control his heart rate. If he has recurrent atrial fibrillation, he may require an antiarrhythmic perhaps amiodarone given his low EF. I am hopeful that with control of his heart rate, his EF will improve. He attempted a nuclear stress test to exclude coronary artery disease; however, his anatomy will not allow for imaging. At some point, we may have to consider a CTA or a cardiac catheterization if his EF fails to improve. He is to refrain from caffeine use. He is to try to reduce his weight. We will try to maintain his potassium and magnesium in normal range. Further recommendations will depend on his clinical course. I would reduce the sodium in his diet. He is at risk for decompensation for his congestive heart failure. I would also consider a Pulmonary consult and a repeat evaluation to see if he would benefit from BiPAP or CPAP or oxygen at night. I would also consider referral to a surgeon who is specialized expertise in repairing complex hiatal hernias to see if he is a candidate. I would defer his surgery until his cardiac function can be given a chance to recover and his cardiac evaluation can be completed. [id number]/[facility] #: [id number] FRANCIS
--- NOTE | 2017-09-26 22:00 | CARD ---
CC: Dr. Taveras * PROCEDURE NOTE: DATE OF PROCEDURE: 09/26/17 PROCEDURE: Cardioversion. REASON FOR CARDIOVERSION: Atrial flutter with a rapid ventricular response and cardiomyopathy. DESCRIPTION OF PROCEDURE: Informed consent was obtained. The patient has a history of a large hiatal hernia and kyphosis. Informed consent was obtained and the patient was in the fasting state. He was premedicated with 5 mg of Versed and 50 mcg of fentanyl. A transesophageal probe was passed. Only limited views were available due to his anatomic abnormalities. We were able to see a transverse arch, which appeared to be normal in the ascending aorta. The aortic valve appeared to be normal in the long axis view. There was no evidence of thrombus in the left atrium and left atrial appendage. All four pulmonary veins were visualized. The procedure was terminated at that point due to coughing. A synchronized biphasic shock of 120 joules was applied with conversion from atrial flutter to atrial fibrillation. A second biphasic shock of 200 joules was given with conversion to sinus rhythm. The patient was given Romazicaon 0.1 mg IV because of depressed respiratory effort. He promptly recovered the abilitiy to follow instructions. His O2 sats improved from the 80s up until low 90s, 93 about where he was at the starting point. IMPRESSION: Successful conversion from atrial flutter to sinus rhythm. We will continue observation for recovery from conscious sedation and adjust his medicines to control his rhythm, rate and anticoagulation and LV dysfunction. [id number] #: [id number] MTDD
[2017-09-26] MEDS: Metoprolol Tartrate TAB* 25 MG PO SCH (23:17)
[2017-09-27] MEDS: traMADol TAB* 50 MG PO PRN ×2 (05:54→20:42)
[2017-09-27 05:55] LABS: ABS Basophils 0.1 10^3/ul (0-0.2); ABS Eosinophils 0 10^3/ul (0-0.6); ABS Lymphocytes 1.4 10^3/ul (1.0-4.8); ABS Monocytes 0.8 10^3/ul (0-0.8); ABS Neutrophils 7.4 10^3/ul (1.5-7.7); ABS Nucleated RBC 0 10^3/ul; Eosinophil % 0.4 % (0-6); Hematocrit 47 % (42-52); Hemoglobin 15.4 g/dl (14.0-18.0); Lymphocyte % 14.7 % (25-47); Mean Corpuscular HGB Conc 33 g/dl (31-36); Mean Corpuscular Hemoglobin 30 pg (27-31); Mean Corpuscular Volume 92 fL (80-94); Mean Platelet Volume 9.6 um3 (7.4-10.4); Nucleated Red Blood Cells % 0; Platelet Count 215 10^3/ul (150-450); Red Blood Count 5.08 10^6/ul (4.00-5.40); Red Cell Distribution Width 13 % (10.5-15); White Blood Count 9.8 10^3/ul (3.5-10.8)
--- NOTE | 2017-09-27 08:36 | PN ---
Subjective Date of Service: 09/27/17 Interval History: Slept poorly, not unusual for him. ? SOB, at bedside states he often seems to have increased respiration. No chest pain. Objective Active Medications: Acetaminophen (Tylenol Tab*) 650 mg PO Q4H PRN PRN Reason: FEVER/PAIN Al Hydrox/Mg Hydrox/Simethicone (Maalox Plus*) 30 ml PO Q6H PRN PRN Reason: INDIGESTION Albuterol (Ventolin 2.5 Mg/3 Ml Neb.Silvia*) 2.5 mg INH [id number] AWAKE PRN PRN Reason: sob/wheezing Apixaban (Eliquis*) 5 mg PO BID [facility] Last Admin: 09/26/17 21:57 Dose: 5 mg Aspirin (Aspirin 81 Mg Chew Tab*) 81 mg PO DAILY [facility] Captopril (Capoten Tab*) 12.5 mg PO TID [facility] Cyclobenzaprine HCl (Flexeril Tab*) 10 mg PO TID PRN PRN Reason: PAIN - BACK Magnesium Hydroxide (Milk Of Magnbe Liq*) 30 ml PO Q4H PRN PRN Reason: CONSTIPATION Magnesium Oxide (Magox 400 Tab*) 400 mg PO DAILY [facility] Last Admin: 09/26/17 16:33 Dose: 400 mg Metoprolol Tartrate (Lopressor Iv*) 5 mg IV Q2H PRN PRN Reason: HEART RATE/PULSE GREATER THAN: Metoprolol Tartrate (Lopressor Tab*) 25 mg PO Q12H [facility] Last Admin: 09/26/17 23:17 Dose: Not Given Potassium Chloride (Klor Con Er Tab*) 10 meq PO BID [facility] Last Admin: 09/26/17 21:56 Dose: 10 meq Tramadol HCl (Ultram*) 100 mg PO Q8H PRN PRN Reason: PAIN Last Admin: 09/27/17 05:54 Dose: 100 mg Vital Signs - 8 hr 09/27/17 09/27/17 09/27/17 03:15 05:54 08:19 Temperature 97.0 F 98.1 F Pulse Rate 107 106 Respiratory 18 20 16 Rate Blood Pressure 111/83 110/69 (mmHg) O2 Sat by Pulse 92 92 Oximetry Oxygen Devices in Use Now: Nasal Cannula Appearance: Alert, partly up in bed. In fair spirits. Looks comfortable. Eyes: No Scleral Icterus Respiratory: Clear to Auscultation, Clear to Percussion, - - marked thoracic kyphosis Extremities: No Edema, No Clubbing, Cyanosis, - Skin: No Rash or Ulcers, No Nodules or Sclerosis, - Neurological: Alert and Oriented x 3, NL Sensation Result Diagrams: 09/27/17 05:21 09/27/17 05:21 Additional Lab and Data: Lab Results 09/25/17 09/25/17 09/25/17 Range/Units 12:10 12:10 12:10 WBC 9.1 (3.5-10.8) 10^3/ul RBC 5.31 (4.00-5.40) 10^6/ul Hgb 16.4 (14.0-18.0) g/dl Hct 49 (42-52) % MCV 91 (80-94) fL MCH 31 (27-31) pg MCHC 34 (31-36) g/dl RDW 13 (10.5-15) % Plt Count 249 (150-450) 10^3/ul MPV 9.1 (7.4-10.4) um3 Neut % (Auto) 68.1 (38-83) % Lymph % (Auto) 21.7 L (25-47) % [place] % (Auto) 8.8 H (0-7) % Eos % (Auto) 0.7 (0-6) % Baso % (Auto) 0.7 (0-2) % Absolute Neuts (auto) 6.2 (1.5-7.7) 10^3/ul Absolute Lymphs (auto) 2.0 (1.0-4.8) 10^3/ul Absolute Monos (auto) 0.8 (0-0.8) 10^3/ul Absolute Eos (auto) 0.1 (0-0.6) 10^3/ul Absolute Basos (auto) 0.1 (0-0.2) 10^3/ul Absolute Nucleated RBC 0 10^3/ul Nucleated RBC % 0.1 INR (Anticoag Therapy) 1.09 H (0.77-1.02) APTT 32.1 (26.0-36.3) seconds Sodium 140 (135-145) mmol/L Potassium 4.0 (3.5-5.0) mmol/L Chloride 102 (101-111) mmol/L Carbon Dioxide 29 (22-32) mmol/L Anion Gap 9 (2-11) mmol/L BUN 11 (6-24) mg/dL Creatinine 1.10 (0.67-1.17) mg/dL Est GFR ( Amer) 86.8 (>60) Est GFR (Non-Af Amer) 71.8 (>60) BUN/Creatinine Ratio 10.0 (8-20) Glucose 111 H (70-100) mg/dL Lactic Acid (0.5-2.0) mmol/L Calcium 9.6 (8.6-10.3) mg/dL Magnesium 1.8 L (1.9-2.7) mg/dL Total Bilirubin 0.80 (0.2-1.0) mg/dL AST 18 (13-39) U/L ALT 13 (7-52) U/L Alkaline Phosphatase 49 (34-104) U/L Troponin I 0.03 (<0.04) ng/mL B-Natriuretic Peptide ( - 100) pg/mL Total Protein 7.1 (6.4-8.9) g/dL Albumin 4.1 (3.2-5.2) g/dL Globulin 3.0 (2-4) g/dL Albumin/Globulin Ratio 1.4 (1-3) TSH 1.47 (0.34-5.60) mcIU/mL 09/25/17 09/25/17 Range/Units 12:10 12:10 WBC (3.5-10.8) 10^3/ul RBC (4.00-5.40) 10^6/ul Hgb (14.0-18.0) g/dl Hct (42-52) % MCV (80-94) fL MCH (27-31) pg MCHC (31-36) g/dl RDW (10.5-15) % Plt Count (150-450) 10^3/ul MPV (7.4-10.4) um3 Neut % (Auto) (38-83) % Lymph % (Auto) (25-47) % [place] % (Auto) (0-7) % Eos % (Auto) (0-6) % Baso % (Auto) (0-2) % Absolute Neuts (auto) (1.5-7.7) 10^3/ul Absolute Lymphs (auto) (1.0-4.8) 10^3/ul Absolute Monos (auto) (0-0.8) 10^3/ul Absolute Eos (auto) (0-0.6) 10^3/ul Absolute Basos (auto) (0-0.2) 10^3/ul Absolute Nucleated RBC 10^3/ul Nucleated RBC % INR (Anticoag Therapy) (0.77-1.02) APTT (26.0-36.3) seconds Sodium (135-145) mmol/L Potassium (3.5-5.0) mmol/L Chloride (101-111) mmol/L Carbon Dioxide (22-32) mmol/L Anion Gap (2-11) mmol/L BUN (6-24) mg/dL Creatinine (0.67-1.17) mg/dL Est GFR ( Amer) (>60) Est GFR (Non-Af Amer) (>60) BUN/Creatinine Ratio (8-20) Glucose (70-100) mg/dL Lactic Acid 1.5 (0.5-2.0) mmol/L Calcium (8.6-10.3) mg/dL Magnesium (1.9-2.7) mg/dL Total Bilirubin (0.2-1.0) mg/dL AST (13-39) U/L ALT (7-52) U/L Alkaline Phosphatase (34-104) U/L Troponin I (<0.04) ng/mL B-Natriuretic Peptide 347 H ( - 100) pg/mL Total Protein (6.4-8.9) g/dL Albumin (3.2-5.2) g/dL Globulin (2-4) g/dL Albumin/Globulin Ratio (1-3) TSH (0.34-5.60) mcIU/mL Assess/Plan/Problems-Billing Assessment: - Patient Problems (1) Atrial flutter Status: Acute Code(s): I48.92 - UNSPECIFIED ATRIAL FLUTTER SNOMED Code(s): 6666991 Comment: Successful cardrioversion after 2 shocks. L atrial appendage visualized. Continue metoprolol, apixaban, ASA. SVT about 15 seconds night of 09/26-. (2) Cardiomyopathy Status: Acute Code(s): I42.9 - CARDIOMYOPATHY, UNSPECIFIED SNOMED Code(s): 12347616 Comment: Possibly tachycardia-induced. Will eventually need an ischemic wup , could start with cardiac CTA. Nuclear stress test not technically feasible due to his anatomy. Increase captopril to 12.5 mg tid AM 09/27. Discussed with Dr. Dey 09/27. Plan is to d/c home on metoprolol XL 25 mg daily and lisnopril 1.25 mg daily.. (3) Snoring Status: Acute Code(s): R06.83 - SNORING SNOMED Code(s): 79717900 Comment: Pt states his tells him he snores a lot. He had a sleep lab study a few years ago, ? was not given any tx. Overnight oximetry on 2 L showed one 7 minute period O2 sat in high 80's. We will test O2 sat on RA +/- O2 sat walking on RA 09/27. (4) Chronic back pain Status: Acute Code(s): M54.9 - DORSALGIA, UNSPECIFIED; G89.29 - OTHER CHRONIC PAIN SNOMED Code(s): 237833256 Comment: Tramadol PRN home dose--usually takes about 3 per day. (5) Electrolyte abnormality Status: Acute Code(s): E87.8 - OTH DISORDERS OF ELECTROLYTE AND FLUID BALANCE , NEC SNOMED Code(s): 281405269 Comment: PO potassium and magnesium ordered. K+ 4.4 and Mg++ 1.9 on 09/27.
[2017-09-27] MEDS: Potassium Chlor TAB* 10 MEQ TAB.ER PO SCH ×2 (08:43→20:43)
[2017-09-27] MEDS: Apixaban* 5 MG TAB PO SCH ×2 (08:43→20:40)
[2017-09-27] MEDS: Metoprolol Tartrate TAB* 25 MG PO SCH (08:43)
[2017-09-27] MEDS: Captopril TAB* 12.5 MG PO SCH ×4 (08:44→20:41)
[2017-09-27] MEDS: Magnesium Oxide TAB* 400 MG PO SCH (08:44)
[2017-09-27] MEDS ORDERED: Aspirin 81 mg CHEW TAB* 81 MG TAB.CHEW PO SCH (09:00)
[2017-09-27] MEDS: Acetaminophen TAB* 325 MG PO PRN (11:18)
[2017-09-27] MEDS: Metoprolol Succinate XL TAB* 25 MG PO SCH ×2 (13:42→20:43)
--- NOTE | 2017-09-27 16:17 | PN ---
Progress Note - Progress Note Date of Service: 09/27/17 Note: Additional diagnosis noted: Restrictive lung disease, due to both his marked obesity, his thoracic kyphosis, and his very large hiatal hernia. This is the cause of his hypoxia.
[2017-09-28] MEDS: Acetaminophen TAB* 325 MG PO PRN (08:35)
[2017-09-28] MEDS: Apixaban* 5 MG TAB PO SCH (08:35)
[2017-09-28] MEDS: Potassium Chlor TAB* 10 MEQ TAB.ER PO SCH (08:35)
[2017-09-28] MEDS: Magnesium Oxide TAB* 400 MG PO SCH (08:35)
[2017-09-28] MEDS ORDERED: Metoprolol Succinate XL TAB* 25 MG PO SCH (09:00)
[2017-09-28] MEDS ORDERED: Lisinopril TAB* 5 MG PO SCH ×2 (09:00)
[2017-09-28] MEDS ORDERED: Metoprolol Succinate XL TAB* 25 MG PO ONE (10:10)
--- NOTE | 2017-09-28 10:12 | PN ---
Progress Note - Progress Note Date of Service: 09/28/17 Note: Time spen on discharge 50 minutes.
[2017-09-28 10:50] VITALS: BP 122/81
[2017-09-29] MEDS ORDERED: Metoprolol Succinate XL TAB* 25 MG PO ONE (10:10)
== END 2017-09-28 11:35 | disposition home or self-care (01) | DRG 201 ==
LOC: ED 11:41 → MEDTELE 14:59 → OBSVTOIN 09-26 12:00
PROVIDERS: ADMIT Internal Medicine; ATTEND Internal Medicine
PROC: B24BZZ4 Ultrasonography of Heart with Aorta, Transesophageal (ICD-10-PCS; 2017-09-26)
PROC: 5A2204Z Restoration of Cardiac Rhythm, Single (ICD-10-PCS; principal; 2017-09-26 13:15)
DX: I48.92 Unspecified atrial flutter (principal); G89.29 Other chronic pain; M54.9 Dorsalgia, unspecified; E66.01 Morbid (severe) obesity due to excess calories; M40.204 Unspecified kyphosis, thoracic region; J45.909 Unspecified asthma, uncomplicated; K44.9 Diaphragmatic hernia without obstruction or gangrene; I42.9 Cardiomyopathy, unspecified; R06.83 Snoring; E87.8 Other disorders of electrolyte and fluid balance, not elsewhere classified; I47.1 Supraventricular tachycardia; J98.4 Other disorders of lung; R09.02 Hypoxemia; I08.3 Combined rheumatic disorders of mitral, aortic and tricuspid valves; I48.91 Unspecified atrial fibrillation; Z68.37 Body mass index [BMI] 37.0-37.9, adult; Z87.891 Personal history of nicotine dependence; Z83.3 Family history of diabetes mellitus; Z82.49 Family history of ischemic heart disease and other diseases of the circulatory system; Z82.3 Family history of stroke
CPT/HCPCS: 36415; 71045; 71275; 78451; 80048; 80053; 80061; 83605; 83735; 83880; 84443; 84484; 85025; 85610; 85730; 92960; 93005; 93306; 93312; 93325; 99156; 99285; 99406; A9270-GY; A9502; G0378; J1940; J2250; J2310; J3010; J3475; Q9967

== ENCOUNTER 2018-09-25 08:07 | Inpatient (IN) | payer BC ==
--- OUTSIDE RECORDS SUMMARY | 2018-09-25 08:21 | XMS REPORT | Continuity of Care Document ---
:1970 External Reference #:[id number] Author Name Alysia Ayala Care Team Providers Name Role Phone Familia Taveras MD Primary Care Physician Unavailable Payers Date Identification Numbers Payment Provider Subscriber Policy Number: [id number] [facility] Vic Grubbs PayID: [id number] [address] [address] [place] [address] Problems Active Problems Provider Date Tachycardia MAMADOU Perales Onset: 09/25/2017 Kyphosis of thoracic spine MAMADOU Perales Onset: 09/25/2017 Generalized hyperhidrosis MAMADOU Perales Onset: 09/25/2017 Cardiomyopathy, unspecified Tobias San M.D. Onset: 09/27/2017 Atrial flutter Tobias San M.D. Onset: 09/27/2017 Disorder of fluid AND/OR electrolyte Tobias San M.D. Onset: 09/26/2017 Disorder of lung Tobias San M.D. Onset: 09/28/2017 Acquired postural kyphosis Tobias San M.D. Onset: 09/28/2017 Obstructive sleep apnea syndrome Chuyita Santos MD Onset: 03/15/2018 Family History Date Family Member(s) Observation Comments : (age 72 Father due to stroke Years) Father Heart Disease Father Stroke Father Diabetes Onset: (10/09/2017) Siblings 2 1. sister kidney stones DM 2. 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 Tobacco Use Start: Unknown Heavy tobacco smoker (more than 10 cigarettes/day) Tobacco Use Start: Unknown Light tobacco smoker (10 or fewer cigarettes/day) Smoking Status Reviewed: 09/05/18 Light tobacco smoker (10 or fewer cigarettes/day) ETOH Use Denies alcohol use Tobacco Use Start: Unknown Patient is a former august 2017 quit End: Unknown smoker Recreational Drug Use Denies Drug Use Exercise Type/Frequency Exercises rarely Pt reports he started chair exercises within his limitations Allergies, Adverse Reactions, Alerts Description No Known Drug Allergies Medications Active Medications SIG Qnty Indications Ordering Date Provider Pulse Oximeter For take oxygen 1units R09.02 Chuyita Santos, 02/19/2018 Finger level as needed MD Moreno Amiodarone HCL 1/2 tablet 90tabs I48.92 Adilene Mclain, 10/09/2017 200mg Tablets three times per [employer] week Eliquis take 1 tablet 60tabs Adilene Mclain, 5mg Tablets by mouth two [employer] times daily 02/04/18 Metoprolol Succinate ER take 1/2 tablet 45tabs Fabrice Cortes 25mg by mouth once a Sarabjit Dey Tablets ER 24HR day Potassium Chloride ER Take 1 Tablet Unknown 10Meq By Mouth Daily Tablets ER Cyclobenzaprine HCL Take 1 Tablet Unknown 10mg By Mouth Three Tablets Times Daily as Needed For Muscle Spasm Tramadol HCL Take 1-2 Unknown 50mg Tablets Tablets By Mouth Every 8 Hours as Needed For Pain Maximum Magnesium-Oxide 1 by mouth Unknown 400(241.3mg) every day mg Tablets Ramipril Take 1 Capsule Sumit, 5mg Capsules By Mouth Daily MD Jerrell Oxygen 3 L via nasal Unknown [facility] cannula History Medications Lisinopril Take 1/2 Tablet By Unknown - 11/07/2017 2.5mg Tablets Mouth Every Day Vital Signs Date Vital Result Comment 09/05/2018 1:21pm Height 75 inches 6'3" Weight 288.19 lb Clothes/shoes Heart Rate 68 /min Radial BP Systolic Sitting 118 mmHg Lue reg cuff BP Diastolic Sitting 70 mmHg Lue reg cuff O2 % BldC Oximetry 99 % 3 LPM via n/c aat BMI (Body Mass Index) 36.0 kg/m2 Ejection Fraction 55%-60% echo 06/23/18 07/31/2018 9:26am Height 75 inches 6'3" Weight 290.25 lb Heart Rate 48 /min BP Systolic Sitting 110 mmHg Lue large cuff BP Diastolic Sitting 66 mmHg Lue large cuff Respiratory Rate 16 /min O2 % BldC Oximetry 98 % On O2 via port. tank on pulse at level 5 BMI (Body Mass Index) 36.3 kg/m2 06/04/2018 11:27am Height 75 inches 6'3" Weight 296.50 lb Heart Rate 60 /min BP Systolic Sitting 136 mmHg LA, lg BP Diastolic Sitting 80 mmHg LA, lg BP Systolic Standing 118 mmHg LA lg BP Diastolic Standing 80 mmHg LA lg BP Systolic Lying Down 118 mmHg la repeat sitting BP Diastolic Lying Down 67 mmHg la repeat sitting O2 % BldC Oximetry 99 % 2L NC BMI (Body Mass Index) 37.1 kg/m2 Ejection Fraction 50-55% 01/27/2018 echo 04/24/2018 1:15pm Height 75 inches 6'3"3 Weight 297.25 lb Heart Rate 80 /min BP Systolic Sitting 130 mmHg Lue large cuff BP Diastolic Sitting 82 mmHg Lue large cuff Respiratory Rate 20 /min O2 % BldC Oximetry 98 % 3 LPM BMI (Body Mass Index) 37.1 kg/m2 02/19/2018 7:08am Height 75 inches 6'3"3 Weight 307.25 lb Heart Rate 64 /min BP Systolic Sitting 120 mmHg Lue large cuff BP Diastolic Sitting 80 mmHg Lue large cuff Respiratory Rate 12 /min O2 % BldC Oximetry 98 % @2LPM BMI (Body Mass Index) 38.4 kg/m2 Neck Circumference in inches 17.5 02/04/2018 3:46pm Height 75 inches 6'3"3 Weight 308.50 lb Heart Rate 88 /min BP Systolic Sitting 138 mmHg LA, reg BP Diastolic Sitting 88 mmHg LA, reg BMI (Body Mass Index) 38.6 kg/m2 Ejection Fraction 50%-55% echo 01/27/18 01/01/2018 8:38am Height 75 inches 6'3"3 Weight 318.25 lb w/ shoes Heart Rate 70 /min BP Systolic Sitting 132 mmHg Lue Large Cuff BP Diastolic Sitting 76 mmHg Lue Large Cuff BP Systolic Standing 118 mmHg la repeat sitting BP Diastolic Standing 72 mmHg la repeat sitting BMI (Body Mass Index) 39.8 kg/m2 Ejection Fraction 50-55% Echo 10/24/17 11/15/2017 10:57am Height 75 inches 6'3"3 Weight 304.31 lb with shoes Heart Rate 60 /min BP Systolic Sitting 102 mmHg Lue lg cuff BP Diastolic Sitting 72 mmHg Lue lg cuff BP Systolic Standing 110 mmHg Lue lg cuff BP Diastolic Standing 72 mmHg Lue lg cuff Respiratory Rate 16 /min BMI (Body Mass Index) 38.0 kg/m2 10/22/2017 12:34pm Height 75 inches 6'3"3 Weight 304.00 lb Heart Rate 64 /min BP Systolic Sitting 128 mmHg Ra, reg BP Diastolic Sitting 72 mmHg Ra, reg O2 % BldC Oximetry 96 % 2LNC BMI (Body Mass Index) 38.0 kg/m2 Ejection Fraction 20%-25% 09/26/2017 echo 10/09/2017 8:41am Weight 300.00 lb Heart Rate 68 /min BP Systolic Sitting 130 mmHg lue lg cuff BP Diastolic Sitting 62 mmHg lue lg cuff Respiratory Rate 16 /min Ejection Fraction 20-25% 09/26/2017 echo Results Test Date Facility Test Result H/L Range Note Comp Metabolic Panel 06/19/2018 [facility] Sodium 143 mmol/L N 135-[address] [place] [address] [phone] Potassium 4.2 mmol/L N 3.5-5.0 Chloride 103 mmol/L N 101-111 Co2 Carbon Dioxide 33 mmol/L High 22-32 Anion Gap 7 mmol/L N 2-11 Glucose 95 mg/dL N 70-100 Blood Urea Nitrogen 20 mg/dL N 6-24 Creatinine 0.90 mg/dL N 0.67-1.17 BUN/Creatinine Ratio 22.2 High 8-20 Calcium 9.8 mg/dL N 8.6-10.3 Total Protein 6.8 g/dL N 6.4-8.9 Albumin 4.4 g/dL N 3.2-5.2 Globulin 2.4 g/dL N 2-4 Albumin/Globulin Ratio 1.8 N 1-3 Total Bilirubin 2.10 mg/dL High 0.2-1.0 Alkaline Phosphatase 131 U/L High 34-104 Alt 239 U/L High 7-52 Ast 206 U/L High 13-39 Egfr Non- 90.1 >60 Egfr 109.0 >60 1 Laboratory test 06/19/2018 [facility] TSH (Thyroid 0.83 mcIU/mL N 0.34-5.60 [address] Stim Horm) [place] [address] [phone] Free T4 (Free Thyroxine) 1.13 ng/dL High 0.61-1.12 3 CBC Auto Diff 06/19/2018 [facility] White Blood 7.7 10^3/uL N 3.5-10.[address] [place] [address] [phone] Red Blood Count 4.80 10^6/uL N 4.18-5.48 Hemoglobin 14.5 g/dL N 14.0-18.0 Hematocrit 45 % N 36-46 Mean Corpuscular Volume 93 fL N 80-94 Mean Corpuscular Hemoglobin 30 pg N 27-31 Mean Corpuscular HGB Conc 33 g/dL N 31-36 Red Cell Distribution Width 13 % N 10.5-15 Platelet Count 245 10^3/uL N 150-450 Mean Platelet Volume 9.2 fL N 7.4-10.4 Abs Neutrophils 5.6 10^3/uL N 1.5-7.7 Abs Lymphocytes 1.2 10^3/uL N 1.0-4.8 Abs Monocytes 0.8 10^3/uL N 0-0.8 Abs Eosinophils 0.1 10^3/uL N 0-0.6 Abs Basophils 0 10^3/uL N 0-0.2 Abs Nucleated RBC 0 10^3/uL Granulocyte % 73.3 % Lymphocyte % 15.1 % Monocyte % 10.5 % Eosinophil % 0.9 % Basophil % 0.2 % Nucleated Red Blood Cells % 0.1 Laboratory test 06/19/2018 [facility] Magnesium 2.0 mg/dL N 1.9-2.7 [address] [place] [address] [phone] Comp Metabolic 02/26/2018 [facility] Sodium 142 mmol/L N 135- [address] [place] [address] [phone] Potassium 4.1 mmol/L N 3.5-5.0 Chloride 100 mmol/L Low 101-111 Co2 Carbon Dioxide 36 mmol/L High 22-32 Anion Gap 6 mmol/L N 2-11 Glucose 102 mg/dL High 70-100 Blood Urea Nitrogen 22 mg/dL N 6-24 Creatinine 1.03 mg/dL N 0.67-1.17 BUN/Creatinine Ratio 21.4 High 8-20 Calcium 10.3 mg/dL N 8.6-10.3 Total Protein 6.9 g/dL N 6.4-8.9 Albumin 4.6 g/dL N 3.2-5.2 Globulin 2.3 g/dL N 2-4 Albumin/Globulin Ratio 2.0 N 1-3 Total Bilirubin 0.60 mg/dL N 0.2-1.0 Alkaline Phosphatase 40 U/L N 34-104 Alt 18 U/L N 7-52 Ast 19 U/L N 13-39 Egfr Non- 77.1 >60 Egfr 93.3 >60 5 Order 02/19/2018 Reporter In-House 6 Minute Walk <pending> Lipid Panel - JFM 01/02/2018 [facility] Creatine 67 U/L N 10- [address] Kinase(CK) [place] [address] [phone] Comp Metabolic 01/02/2018 [facility] Sodium 144 mmol/L N 135- [address] [place] [address] [phone] Potassium 4.7 mmol/L N 3.5-5.0 Chloride 99 mmol/L Low 101-111 Glucose 96 mg/dL N 70-100 Blood Urea Nitrogen 16 mg/dL N 6-24 Creatinine 0.79 mg/dL N 0.67-1.17 BUN/Creatinine Ratio 20.3 High 8-20 Calcium 9.8 mg/dL N 8.6-10.3 Total Protein 6.7 g/dL N 6.4-8.9 Albumin 4.3 g/dL N 3.2-5.2 Globulin 2.4 g/dL N 2-4 Albumin/Globulin Ratio 1.8 N 1-3 Total Bilirubin 1.00 mg/dL N 0.2-1.0 Alkaline Phosphatase 106 U/L High 34-104 Alt 233 U/L High 7-52 Ast 166 U/L High 13-39 Egfr Non- 104.7 >60 Egfr 126.7 >60 6 Co2 Carbon Dioxide 41 mmol/L High 22-32 7 Anion Gap 4 mmol/L N 2-11 Lipid Profile 01/02/2018 [facility] Triglycerides 102 mg/dL 8 (Trig/Chol/HDL) [address] [place] [address] [phone] Cholesterol 221 mg/dL 9 HDL Cholesterol 61.0 mg/dL 10 LDL Cholesterol 140 mg/dL 11 Laboratory test 01/02/2018 [facility] TSH (Thyroid 1.08 mcIU/mL N 0.34-5.[address] Stim Horm) [place] [address] [phone] Free T4 (Free Thyroxine) 0.89 ng/dL N 0.61-1.12 B-Type Natriuretic Peptide BNP 18 pg/mL 12 CBC Auto Diff 01/02/2018 [facility] White Blood 5.5 10^3/uL N 3.5-10.[address] [place] [place] [address] [phone] Red Blood Count 4.69 10^6/uL N 4.00-5.40 Hemoglobin 14.6 g/dL N 14.0-18.0 Hematocrit 44 % N 42-52 Mean Corpuscular Volume 93 fL N 80-94 Mean Corpuscular Hemoglobin 31 pg N 27-31 Mean Corpuscular HGB Conc 33 g/dL N 31-36 Red Cell Distribution Width 14 % N 10.5-15 Platelet Count 226 10^3/uL N 150-450 Mean Platelet Volume 8.4 um3 N 7.4-10.4 Abs Neutrophils 3.7 10^3/uL N 1.5-7.7 Abs Lymphocytes 1.2 10^3/uL N 1.0-4.8 Abs Monocytes 0.5 10^3/uL N 0-0.8 Abs Eosinophils 0.1 10^3/uL N 0-0.6 Abs Basophils 0.1 10^3/uL N 0-0.2 Abs Nucleated RBC 0 10^3/uL Granulocyte % 66.3 % N 38-83 Lymphocyte % 21.1 % Low 25-47 Monocyte % 9.8 % High 0-7 Eosinophil % 1.9 % N 0-6 Basophil % 0.9 % N 0-2 Nucleated Red Blood Cells % 0.3 Comp Metabolic Panel 12/03/2017 [facility] Sodium 143 mmol/L N 135-[address] [place] [address] [phone] Potassium 4.1 mmol/L N 3.5-5.0 Chloride 101 mmol/L N 101-111 Co2 Carbon Dioxide 36 mmol/L High 22-32 Anion Gap 6 mmol/L N 2-11 Glucose 103 mg/dL High 70-100 Blood Urea Nitrogen 15 mg/dL N 6-24 Creatinine 0.88 mg/dL N 0.67-1.17 BUN/Creatinine Ratio 17.0 N 8-20 Calcium 9.7 mg/dL N 8.6-10.3 Total Protein 6.5 g/dL N 6.4-8.9 Albumin 4.2 g/dL N 3.2-5.2 Globulin 2.3 g/dL N 2-4 Albumin/Globulin Ratio 1.8 N 1-3 Total Bilirubin 0.50 mg/dL N 0.2-1.0 Alkaline Phosphatase 67 U/L N 34-104 Alt 17 U/L N 7-52 Ast 19 U/L N 13-39 Egfr Non- 92.4 >60 Egfr 111.8 >60 13 CBC Auto Diff 12/03/2017 [facility] White Blood 6.1 10^3/uL N 3.5-10.[address] [place] [place] [address] [phone] Red Blood Count 4.86 10^6/uL N 4.00-5.40 Hemoglobin 14.9 g/dL N 14.0-18.0 Hematocrit 45 % N 42-52 Mean Corpuscular Volume 92 fL N 80-94 Mean Corpuscular Hemoglobin 31 pg N 27-31 Mean Corpuscular HGB Conc 34 g/dL N 31-36 Red Cell Distribution Width 14 % N 10.5-15 Platelet Count 215 10^3/uL N 150-450 Mean Platelet Volume 8.3 um3 N 7.4-10.4 Abs Neutrophils 3.7 10^3/uL N 1.5-7.7 Abs Lymphocytes 1.6 10^3/uL N 1.0-4.8 Abs Monocytes 0.6 10^3/uL N 0-0.8 Abs Eosinophils 0.1 10^3/uL N 0-0.6 Abs Basophils 0 10^3/uL N 0-0.2 Abs Nucleated RBC 0 10^3/uL Granulocyte % 60.2 % N 38-83 Lymphocyte % 26.6 % N 25-47 Monocyte % 10.2 % High 0-7 Eosinophil % 2.3 % N 0-6 Basophil % 0.7 % N 0-2 Nucleated Red Blood Cells % 0 Comp Metabolic Panel 11/01/2017 [facility] Sodium 139 mmol/L N 135-[address] [place] [address] [phone] Potassium 4.1 mmol/L N 3.5-5.0 Chloride 98 mmol/L Low 101-111 Co2 Carbon Dioxide 35 mmol/L High 22-32 Anion Gap 6 mmol/L N 2-11 Glucose 107 mg/dL High 70-100 Blood Urea Nitrogen 10 mg/dL N 6-24 Creatinine 0.92 mg/dL N 0.67-1.17 BUN/Creatinine Ratio 10.9 N 8-20 Calcium 9.7 mg/dL N 8.6-10.3 Total Protein 6.8 g/dL N 6.4-8.9 Albumin 4.1 g/dL N 3.2-5.2 Globulin 2.7 g/dL N 2-4 Albumin/Globulin Ratio 1.5 N 1-3 Total Bilirubin 1.10 mg/dL High 0.2-1.0 Alkaline Phosphatase 100 U/L N 34-104 Alt 190 U/L High 7-52 Ast 237 U/L High 13-39 Egfr Non- 88.2 >60 Egfr 106.7 >60 14 Laboratory test 11/01/2017 [facility] TSH (Thyroid 3.13 mcIU/mL N 0.34-5.60 [address] Stim Horm) [place] [address] [phone] Free T4 (Free Thyroxine) 0.98 ng/dL N 0.61-1.12 16 Magnesium 1.9 mg/dL N 1.9-2.7 17 CBC Auto Diff 11/01/2017 [facility] White Blood 6.6 10^3/uL N 3.5-10.[address] [place] [address] [phone] Red Blood Count 5.16 10^6/uL N 4.00-5.40 Hemoglobin 15.6 g/dL N 14.0-18.0 Hematocrit 46 % N 42-52 Mean Corpuscular Volume 90 fL N 80-94 Mean Corpuscular Hemoglobin 30 pg N 27-31 Mean Corpuscular HGB Conc 34 g/dL N 31-36 Red Cell Distribution Width 13 % N 10.5-15 Platelet Count 197 10^3/uL N 150-450 Mean Platelet Volume 8.4 um3 N 7.4-10.4 Abs Neutrophils 4.2 10^3/uL N 1.5-7.7 Abs Lymphocytes 1.4 10^3/uL N 1.0-4.8 Abs Monocytes 0.7 10^3/uL N 0-0.8 Abs Eosinophils 0.1 10^3/uL N 0-0.6 Abs Basophils 0 10^3/uL N 0-0.2 Abs Nucleated RBC 0 10^3/uL Granulocyte % 64.7 % N 38-83 Lymphocyte % 21.3 % Low 25-47 Monocyte % 11.1 % High 0-7 Eosinophil % 2.1 % N 0-6 Basophil % 0.8 % N 0-2 Nucleated Red Blood Cells % 0.1 CBC Auto Diff 10/09/2017 [facility] White Blood 7.3 10^3/uL N 3.5-10.[address] [place] [place] [address] [phone] Red Blood Count 5.67 10^6/uL High 4.00-5.40 Hemoglobin 17.1 g/dL N 14.0-18.0 Hematocrit 52 % N 42-52 Mean Corpuscular Volume 91 fL N 80-94 Mean Corpuscular Hemoglobin 30 pg N 27-31 Mean Corpuscular HGB Conc 33 g/dL N 31-36 Red Cell Distribution Width 13 % N 10.5-15 Platelet Count 254 10^3/uL N 150-450 Mean Platelet Volume 8.9 um3 N 7.4-10.4 Abs Neutrophils 4.3 10^3/uL N 1.5-7.7 Abs Lymphocytes 2.1 10^3/uL N 1.0-4.8 Abs Monocytes 0.7 10^3/uL N 0-0.8 Abs Eosinophils 0.1 10^3/uL N 0-0.6 Abs Basophils 0.1 10^3/uL N 0-0.2 Abs Nucleated RBC 0 10^3/uL Granulocyte % 59.5 % N 38-83 Lymphocyte % 29.1 % N 25-47 Monocyte % 9.4 % High 0-7 Eosinophil % 1.2 % N 0-6 Basophil % 0.8 % N 0-2 Nucleated Red Blood Cells % 0.3 Laboratory test 10/09/2017 [facility] Magnesium 1.9 mg/dL N 1.9-2.[address] [place] [address] [phone] TSH (Thyroid Stim Horm) 2.33 mcIU/mL N 0.34-5.60 Free T4 (Free Thyroxine) 0.84 ng/dL N 0.61-1.12 Comp Metabolic Panel 10/09/2017 [facility] Sodium 141 mmol/L N 135-145 [address] [place] [address] [phone] Potassium 4.9 mmol/L N 3.5-5.0 Chloride 99 mmol/L Low 101-111 Co2 Carbon Dioxide 36 mmol/L High 22-32 Anion Gap 6 mmol/L N 2-11 Glucose 98 mg/dL N 70-100 Blood Urea Nitrogen 16 mg/dL N 6-24 Creatinine 0.94 mg/dL N 0.67-1.17 BUN/Creatinine Ratio 17.0 N 8-20 Calcium 9.9 mg/dL N 8.6-10.3 Total Protein 7.1 g/dL N 6.4-8.9 Albumin 4.2 g/dL N 3.2-5.2 Globulin 2.9 g/dL N 2-4 Albumin/Globulin Ratio 1.4 N 1-3 Total Bilirubin 0.90 mg/dL N 0.2-1.0 Alkaline Phosphatase 41 U/L N 34-104 Alt 15 U/L N 7-52 Ast 18 U/L N 13-39 Egfr Non- 86.0 >60 Egfr 104.1 >60 18 1 Because ethnic data is not always readily available, this report includes an eGFR for both -Americans and non- Americans. The National Kidney Disease Education Program (NKDEP) does not endorse the use of the MDRD equation for patients that are not between the ages of 18 and 70, are , have extremes of body size, muscle mass, or nutritional status, or are non- or non-. According to the National Kidney Foundation, irrespective of diagnosis, the stage of the disease is based on the level of kidney function: Stage Description GFR(mL/min/1.73 m(2)) 1 Kidney damage with normal or decreased GFR 90 2 Kidney damage with mild decrease in GFR 60-89 3 Moderate decrease in GFR 30-59 4 Severe decrease in GFR 15-29 5 Kidney failure <15 (or dialysis) 2 Copy Result to: CARLA ARANAMOD ([id number]) 3 Copy Result to: SUMIT, JERRELL ([id number]) 4 Copy Result to: SUMIT, JERRELL ([id number]) 5 Because ethnic data is not always readily available, this report includes an eGFR for both -Americans and non- Americans. The National Kidney Disease Education Program (NKDEP) does not endorse the use of the MDRD equation for patients that are not between the ages of 18 and 70, are , have extremes of body size, muscle mass, or nutritional status, or are non- or non-. According to the National Kidney Foundation, irrespective of diagnosis, the stage of the disease is based on the level of kidney function: Stage Description GFR(mL/min/1.73 m(2)) 1 Kidney damage with normal or decreased GFR 90 2 Kidney damage with mild decrease in GFR 60-89 3 Moderate decrease in GFR 30-59 4 Severe decrease in GFR 15-29 5 Kidney failure <15 (or dialysis) 6 Because ethnic data is not always readily available, this report includes an eGFR for both -Americans and non- Americans. The National Kidney Disease Education Program (NKDEP) does not endorse the use of the MDRD equation for patients that are not between the ages of 18 and 70, are , have extremes of body size, muscle mass, or nutritional status, or are non- or non-. According to the National Kidney Foundation, irrespective of diagnosis, the stage of the disease is based on the level of kidney function: Stage Description GFR(mL/min/1.73 m(2)) 1 Kidney damage with normal or decreased GFR 90 2 Kidney damage with mild decrease in GFR 60-89 3 Moderate decrease in GFR 30-59 4 Severe decrease in GFR 15-29 5 Kidney failure <15 (or dialysis) 7 Critical Result CO2:41 Called to SÁNCHEZ FALK RN at: 11:10:52 by:[id number] Read back by:SÁNCHEZ FALK RN 8 Desirable: <150 Borderline High: 150-199 High: 200-499 Very High: >500 9 Desirable: <200 Borderline High: 200-239 High: >239 10 Low: <40 Desirable: 40-60 High: >60 11 Desirable: <100 Near Optimal: 100-129 Borderline High: 130-159 High: 160-189 Very High: >189 12 >100 to <200 pg/mL: likely compensated congestive heart failure (CHF) 200 to 400 pg/mL: likely moderate CHF >400 pg/mL: likely moderate to severe CHF 13 Because ethnic data is not always readily available, this report includes an eGFR for both -Americans and non- Americans. The National Kidney Disease Education Program (NKDEP) does not endorse the use of the MDRD equation for patients that are not between the ages of 18 and 70, are , have extremes of body size, muscle mass, or nutritional status, or are non- or non-. According to the National Kidney Foundation, irrespective of diagnosis, the stage of the disease is based on the level of kidney function: Stage Description GFR(mL/min/1.73 m(2)) 1 Kidney damage with normal or decreased GFR 90 2 Kidney damage with mild decrease in GFR 60-89 3 Moderate decrease in GFR 30-59 4 Severe decrease in GFR 15-29 5 Kidney failure <15 (or dialysis) 14 Because ethnic data is not always readily available, this report includes an eGFR for both -Americans and non- Americans. The National Kidney Disease Education Program (NKDEP) does not endorse the use of the MDRD equation for patients that are not between the ages of 18 and 70, are , have extremes of body size, muscle mass, or nutritional status, or are non- or non-. According to the National Kidney Foundation, irrespective of diagnosis, the stage of the disease is based on the level of kidney function: Stage Description GFR(mL/min/1.73 m(2)) 1 Kidney damage with normal or decreased GFR 90 2 Kidney damage with mild decrease in GFR 60-89 3 Moderate decrease in GFR 30-59 4 Severe decrease in GFR 15-29 5 Kidney failure <15 (or dialysis) 15 Copy Result to: JERRELL ARANA ([id number]) 16 Copy Result to: JERRELL ARANA ([id number]) 17 Copy Result to: JERRELL ARANA ([id number]) 18 Because ethnic data is not always readily available, this report includes an eGFR for both -Americans and non- Americans. The National Kidney Disease Education Program (NKDEP) does not endorse the use of the MDRD equation for patients that are not between the ages of 18 and 70, are , have extremes of body size, muscle mass, or nutritional status, or are non- or non-. According to the National Kidney Foundation, irrespective of diagnosis, the stage of the disease is based on the level of kidney function: Stage Description GFR(mL/min/1.73 m(2)) 1 Kidney damage with normal or decreased GFR 90 2 Kidney damage with mild decrease in GFR 60-89 3 Moderate decrease in GFR 30-59 4 Severe decrease in GFR 15-29 5 Kidney failure <15 (or dialysis) Procedures Date Code Description Status 09/05/2018 16606 EKG Tracing & Interpretation Completed 06/23/2018 71276 ECHO Transthoracic, Real-Time 2D With Doppler And Color Completed Flow 06/23/2018 20702 ECHO Transthoracic, Real-Time 2D With Doppler And Color Completed Flow 06/04/2018 35873 EKG Tracing & Interpretation Completed 03/15/2018 93968 Polysomnography Sleep Staging 4+ Parameters W/Cpap Completed 02/19/2018 43841 Pulmonary Stress Testing, Inc Measurement Heart Rate, Completed Oximetry 02/03/2018 43913 Diffusing Capacity Completed 02/03/2018 01002 Plethysmography Determination Lung Volumes & Per Airway Completed Resist 02/03/2018 00481 Spirometry Incl Graphic Record Completed 01/27/2018 43643 Echocardiogram, Limited Study Completed 01/27/2018 42754 Echocardiogram, Limited Study Completed 01/12/2018 98340 Holter Monitor Review (24 hr) review & interp only Completed 01/08/2018 42706 ECG Monitor/Recording W/Visual Superimposition Scanning Completed 01/01/2018 76272 EKG Tracing & Interpretation Completed 10/24/2017 58309 ECHO Transthoracic, Real-Time 2D With Doppler And Color Completed Flow 10/24/2017 71762 ECHO Transthoracic, Real-Time 2D With Doppler And Color Completed Flow 10/22/2017 55815 EKG Tracing & Interpretation Completed 10/15/2017 36351 Event Monitor/Phys Review/Interp. Completed 10/09/2017 09529 Moderate Sedation Services; Same Phys Intl 15 Mins; PT >=5 Completed Years 10/09/2017 21974 EKG, Interpretation Only Completed 10/09/2017 21733 EKG Tracing & Interpretation Completed 10/09/2017 82106 Cardioversion Completed 09/27/2017 86307 EKG, Interpretation Only Completed 09/26/2017 24323 Moderate Sedation Services; Same Phys Intl 15 Mins; PT >=5 Completed Years 09/26/2017 40940 Color Flow Doppler/Interp & Reprt Completed 09/26/2017 14552 Pulse Wave/Continuous-Interp.RPT Completed 09/26/2017 98903 Echocardiography, Transesophageal, Real Time W/Image 2D Completed W/W/O M-M 09/26/2017 59807 ECHO Transthorasic Realtime 2D W Doppler & Color Flow Hosp Completed 09/26/2017 39510 EKG, Interpretation Only Completed 09/26/2017 10135 Cardioversion Completed Encounters Type Date Location Provider Dx Diagnosis Office Visit 07/31/2018 Pulmonology And Chuyita Santos, J44.9 Chronic obstructive 9:15a Sleep Services Of pulmonary disease, Reporter unspecified M40.204 Unspecified kyphosis, thoracic region G47.33 Obstructive sleep apnea (adult) (pediatric) Office Visit 06/04/2018 11:20a Miranda Cortes I34.0 Nonrheumatic mitral Cardiology Sarabjit Dey (valve) insufficiency I48.92 Unspecified atrial flutter G47.33 Obstructive sleep apnea (adult) (pediatric) E66.9 Obesity, unspecified K44.9 Diaphragmatic hernia without obstruction or gangrene I42.9 Cardiomyopathy, unspecified Office Visit 04/24/2018 1:30p Pulmonology Litzy Boogie G47.33 Obstructive sleep [facility] apnea (adult) Reporter (pediatric) J98.4 Other disorders of lung M40.204 Unspecified kyphosis, thoracic region E66.09 Other obesity due to excess calories R09.02 Hypoxemia Office Visit 02/19/2018 7:30a Pulmonology And Chuyita J98.4 Other disorders [facility] of lung Reporter M40.204 Unspecified kyphosis, thoracic region R06.83 Snoring E66.09 Other obesity due to excess calories R09.02 Hypoxemia Z68.38 Body mass index (BMI) 38.0-38.9, adult Office Visit 02/04/2018 [place] Z01.810 Encounter for 3:30p Cardiology DONNA Mclain preprocedural cardiovascular examination I48.92 Unspecified atrial flutter K44.9 Diaphragmatic hernia without obstruction or gangrene Z79.899 Other rn long term care (current) drug therapy Office Visit 01/01/2018 [place] Fabrice Cortes I42.9 Cardiomyopathy, 9:00a Cardiology Sarabjit Dey unspecified R00.1 Bradycardia, unspecified K44.9 Diaphragmatic hernia without obstruction or gangrene I48.92 Unspecified atrial flutter R06.00 Dyspnea, unspecified I45.10 Unspecified right bundle-branch block Office Visit 11/15/2017 [place] Janna Gaines I42.9 Cardiomyopathy, 11:00a Cardiology Of Reva Ferris unspecified Reporter R00.1 Bradycardia, unspecified R94.5 Abnormal results of liver function studies I45.10 Unspecified right bundle-branch block R94.31 Abnormal electrocardiogram [ECG] [EKG] Office Visit 10/22/2017 1:00p [facility] Fabrice Cortes I48.92 Unspecified Sarabjit Dey atrial flutter I42.9 Cardiomyopathy, unspecified K44.9 Diaphragmatic hernia without obstruction or gangrene M40.204 Unspecified kyphosis, thoracic region R00.1 Bradycardia, unspecified I51.7 Cardiomegaly I45.10 Unspecified right bundle-branch block R94.31 Abnormal electrocardiogram [ECG] [EKG] Office Visit 10/09/2017 8:45a [place] [facility] Fabrice Cortes I48.92 Unspecified Of Daisy Dey M.D. atrial flutter I42.9 Cardiomyopathy, unspecified I45.10 Unspecified right bundle-branch block R94.31 Abnormal electrocardiogram [ECG] [EKG] M41.34 Thoracogenic scoliosis, thoracic region Office Visit 09/28/2017 10:54a [facility] I48.92 Unspecified Assoc,dolly San M.D. atrial flutter Hospitalists I42.9 Cardiomyopathy, unspecified J98.4 Other disorders of lung M40.209 Unspecified kyphosis, site unspecified Office Visit 09/27/2017 4:16p [facility] Fabrice Cortes I48.92 Unspecjessi Dey M.D. atrial flutter I42.9 Cardiomyopathy, unspecified K44.9 Diaphragmatic hernia without obstruction or gangrene Office Visit 09/27/2017 10:54a [facility] I48.92 Unspecified Assoc,dolly San M.D. atrial flutter Hospitalists I42.9 Cardiomyopathy, unspecified Office Visit 09/26/2017 10:49a [facility] I48.92 Unspecified Assoc,dolly San M.D. atrial flutter Hospitalists I42.9 Cardiomyopathy, unspecified E87.8 Oth disorders of electrolyte and fluid balance, NEC Office Visit 09/26/2017 [place] Fabrice Cortes I42.9 Cardiomyopathy, 2:46p Cardiology Sarabjit Dey unspecified I48.92 Unspecified atrial flutter Office Visit 09/25/2017 [facility] R00.0 Tachycardia, 10:49a Assoc,MAMADOU Ward unspecified Hospitalists M40.204 Unspecified kyphosis, thoracic region R61 Generalized hyperhidrosis Office Visit 08/18/2012 1:00p Neurosurgery Jose Campos 721.3 Spondylosis [facility] Sarabjit Mckenzie Lumbar W/O Myelopathy Plan of Treatment Future Appointment(s):02/10/2019 9:20 am - Fabrice Dey M.D. at [facility]12/08/2018 9:00 am - Janna Ferris N.PBebe at [facility]2019 10:45 am - Chuyita Santos MD at [facility]09/05 - Fabrice Dey M.D.J44.9 Chronic obstructive pulmonary disease, vpuqlgydogzL61.204 Unspecified kyphosis, thoracic hgrckyK63.33 Obstructive sleep apnea (adult) (pediatric)K44.9 Diaphragmatic hernia without obstruction or znmokbgfR39.92 Paroxysmal atrial boimrbbU01.905D Drug-induced hepatitisFollow up:ov 3 m Janna ov JFM 5 m
[2018-09-25 08:43] LABS: ABS Basophils 0.1 10^3/ul (0-0.2); ABS Lymphocytes 1.8 10^3/ul (1.0-4.8); ABS Monocytes 0.5 10^3/ul (0-0.8); ABS Neutrophils 8.4 10^3/ul (1.5-7.7); Eosinophil % 0.1 %; Hematocrit 53 % (42-52); Hemoglobin 17.2 g/dL (14.0-18.0); Lymphocyte % 17.1 %; Mean Corpuscular HGB Conc 33 g/dL (31-36); Mean Corpuscular Hemoglobin 30 pg (27-31); Mean Corpuscular Volume 92 fL (80-94); Mean Platelet Volume 8.8 fL (7.4-10.4); Nucleated Red Blood Cells % 0.1; Platelet Count 322 10^3/uL (150-450); Red Blood Count 5.69 10^6 /uL (4.18-5.48); Red Cell Distribution Width 13 % (10-15); White Blood Count 10.7 10^3/uL (3.5-10.8)
[2018-09-25] MEDS ORDERED: Ondansetron INJ* 2 MG/ML VIAL IV ONE (08:47)
[2018-09-25] MEDS ORDERED: Morphine 4 MG/ML VIAL (1 ml) 4 MG/ML VIAL IV ONE ×3 (08:47→12:05)
--- NOTE | 2018-09-25 08:54 | ED ---
Abdominal Pain/Male - HPI Summary HPI Summary: Pt is a 47 y/o M presenting to the ED with a chief complaint of abd pain initially onset at 0330/0400 this morning. Per triage note, he describes it as sharp, constant, and the severity has been increasing, currently rated at 10/ 10. The pain radiates to his back bilaterally, and is accompanied by diaphoresis , chills, testicular pain, or dizziness. He denies fever, erythema of eyes, sore throat, CP, SOB, cough, vomiting, diarrhea, dysuria, hematuria, edema, rash, or dizziness. His daughter notes he has hx of hiatal hernia, AFib, and scoliosis. He states his last BM was yesterday. - History of Current Complaint Chief Complaint: EDAbdPain Stated Complaint: COLD SWEATS PAINS IN STOMACH/NAUSEA PER PT DAUGHTE Time Seen by Provider: 09/25/18 08:23 Hx Obtained From: Patient, Family/Book Critic Onset/Duration: Sudden Onset, Lasting Hours, Still Present Timing: Constant, Lasting Hours Severity Initially: Moderate Severity Currently: Severe Pain Intensity: 9 Pain Scale Used: 0-10 Numeric Location: Umbilical - just below Radiates: No Character: Sharp Aggravating Factor(s): Nothing Alleviating Factor(s): Nothing Associated Signs And Symptoms: Positive: Diaphoresis, Back Pain, Nausea. Negative: Fever, Cough, Chest Pain, Dizzy, Vomiting, Diarrhea - Allergies/Home Medications Allergies/Adverse Reactions: Allergies Allergy/AdvReac Type Severity Reaction Status Date / Time No Known Allergies Allergy Verified 09/25/18 08:11 Home Medications: Home Medications Amiodarone TAB* [Cordarone Tab*] 100 mg PO DAILY 09/25/18 [History Confirmed ] Ramipril 5 mg PO DAILY 09/25/18 [History Confirmed 09/25/18] PMH/Surg Hx/FS Hx/Imm Hx Previously Healthy: Yes Endocrine/Hematology History: Denies: Hx Diabetes Cardiovascular History: Reports: Hx Atrial Fibrillation Denies: Hx Hypertension, Hx Pacemaker/ICD Respiratory History: Reports: Hx Asthma Denies: Hx Chronic Obstructive Pulmonary Disease (COPD) GI History: Reports: Hx Hiatal Hernia History: Denies: Hx Renal Disease Musculoskeletal History: Reports: Hx Back Problems Sensory History: Reports: Hx Contacts or Glasses Denies: Hx Hearing Aid Opthamlomology History: Reports: Hx Contacts or Glasses Psychiatric History: Denies: Hx Panic Disorder - Surgical History Surgery Procedure, Year, and Place: none Infectious Disease History: No Infectious Disease History: Denies: Traveled Outside the [place] in Last 30 Days - Family History Known Family History: Positive: Cardiac Disease - Social History Alcohol Use: Rare Hx Substance Use: No Substance Use Type: Reports: None Hx Tobacco Use: Yes Smoking Status (MU): Current Every Day Smoker Type: Cigarettes Amount Used/How Often: 1/2 PPD Have You Smoked in the Last Year: Yes Review of Systems Positive: Chills, Skin Diaphoresis. Negative: Fever Negative: Erythema Negative: Sore Throat Negative: Chest Pain Negative: Shortness Of Breath, Cough Positive: Nausea. Negative: Vomiting, Diarrhea Negative: dysuria, hematuria, other - testicular pain Positive: Myalgia - back pain. Negative: Edema Negative: Rash Neurological: Negative - dizziness All Other Systems Reviewed And Are Negative: Yes Physical Exam - Summary Physical Exam Summary: Constitutional: Well-developed, Well-nourished, Alert. (-) Distressed Skin: Warm, diaphoretic HENT: Normocephalic; Atraumatic Eyes: Conjunctiva normal Neck: Musculoskeletal ROM normal neck. (-) JVD, (-) Stridor, (-) Tracheal deviation Cardio: Rhythm regular, rate normal, Heart sounds normal; Intact distal pulses; The pedal pulses are 2+ and symmetric. Radial pulses are 2+ and symmetric. (-) Murmur Pulmonary/Chest wall: Effort normal. (-) Respiratory distress, (-) Wheezes, (-) Rales Abd: Obese abd limits exam, (-) tenderness, (-) Distension, (-) Guarding, (-) Rebound Musculoskeletal: (-) Edema Lymph: (-) Cervical adenopathy Neuro: Alert, Oriented x3 Psych: Mood and affect Normal Triage Information Reviewed: Yes Vital Signs On Initial Exam: Initial Vitals Temp Pulse Resp BP Pulse Ox 95.0 F 83 18 126/83 98 09/25/18 08:08 09/25/18 08:08 09/25/18 08:08 09/25/18 08:08 09/25/18 08:08 Vital Signs Reviewed: Yes Diagnostics - Vital Signs Vital Signs Temp Pulse Resp BP Pulse Ox 09/25/18 08:23 71 21 136/82 100 09/25/18 08:22 79 15 100 09/25/18 08:08 95.0 F 83 18 126/83 98 - Laboratory Lab Results: Lab Results 09/25/18 Range/Units 08:31 WBC 10.7 (3.5-10.8) 10^3/uL RBC 5.69 H (4.18-5.48) 10^6 /uL Hgb 17.2 (14.0-18.0) g/dL Hct 53 H (42-52) % MCV 92 (80-94) fL MCH 30 (27-31) pg MCHC 33 (31-36) g/dL RDW 13 (10-15) % Plt Count 322 (150-450) 10^3/uL MPV 8.8 (7.4-10.4) fL Neut % (Auto) 77.7 % Lymph % (Auto) 17.1 % [place] % (Auto) 4.6 % Eos % (Auto) 0.1 % Baso % (Auto) 0.5 % Absolute Neuts (auto) 8.4 H (1.5-7.7) 10^3/ul Absolute Lymphs (auto) 1.8 (1.0-4.8) 10^3/ul Absolute Monos (auto) 0.5 (0-0.8) 10^3/ul Absolute Eos (auto) 0.0 (0-0.6) 10^3/ul Absolute Basos (auto) 0.1 (0-0.2) 10^3/ul Absolute Nucleated RBC 0.0 10^3/ul Nucleated RBC % 0.1 Result Diagrams: 09/25/18 08:31 09/25/18 08:31 Lab Statement: Any lab studies that have been ordered have been reviewed, and results considered in the medical decision making process. - CT CT abd/pelv CT Interpretation Completed By: Radiologist Summary of CT Findings: There is a large diaphragmatic hernia with multiple abdominal contents noted in the chest including the stomach, pancreas, large and small bowel. There is abrupt termination of the superior mesenteric artery as it crosses into the diaphragmatic hiatus. This was previously patent and the possibility of a volvulus should be considered. Infiltration of fat is noted in the mesentery on the left including above and below the diaphragm. ED physician has reviewed this report. - EKG 0849 Cardiac Rate: Bradycardia - 58bpm EKG Rhythm: Sinus Bradycardia ST Segment: Normal Ectopy: PACs Summary of EKG Findings: EKG at 0849 shows sinus bradycardia at 58bpm with PAC, probable L atrial enlargement, RBBB, and no STEMI. 1208 Cardiac Rate: Tachycardia EKG Rhythm: Sinus Tachycardia ST Segment: Normal Ectopy: None EKG Comparison: Other Summary of EKG Findings: EKG at 1208 shows sinus tachycardia at 143bpm with no STEMI. 1253 Cardiac Rate: Tachycardia - 150bpm EKG Rhythm: Sinus Tachycardia ST Segment: Normal Ectopy: None Summary of EKG Findings: EKG at 1253 shows sinus tachycardia at 150bpm with no STEMI. Re-Evaluation - Re-Evaluation 1st re-eval Re-Evaluation Time: 11:53 Change: Unchanged Comment: Pt states that his pain is still at a 6/10, and that he was considered for surgery on his diaphragmatic hernia, but they were waiting for him to lose 80-100lbs. 2nd re-eval Re-Evaluation Time: 12:54 Change: Worse Comment: The pts blood pressure decreased, his HR increased, and his line was lost. The nurses began a new line and started another bag of fluids. 3rd re-eval Re-Evaluation Time: 13:09 Change: Unchanged Comment: Pt's HR came down to 130s spontaneously, revealing P waves and atrial flutter. There is no need for cardioversion at this time. BP also spontaneously dropped to 128. Abdominal Pain Male Course/Dx - Course Course Of Treatment: Pt is a 47 y/o M presenting to the ED with a chief complaint of abd pain initially onset at 0330/0400 this morning. Per triage note , he describes it as sharp, constant, and the severity has been increasing, currently rated at 10/10. The pain radiates to his back bilaterally, and is accompanied by diaphoresis, chills, and nausea. He denies fever, erythema of eyes, sore throat, CP, SOB, cough, vomiting, diarrhea, dysuria, hematuria, edema , rash, testicular pain, or dizziness. His daughter notes he has hx of hiatal hernia, AFib, and scoliosis. She also notes he sees Dr. Dey here in [place], and Dr. Aguirre in [place]. His last BM was yesterday morning, 09/24/18. I reviewed the pts medical record, and a prior CTA of his chest shows no aneurysm. There are no prior CTs of his abdomen. Pt began actively wretching at bedside at 0850. EKG at 0849 shows sinus bradycardia at 58bpm with PAC, probable L atrial enlargement, RBBB, and no STEMI. On exam, there is no point tenderness to the abd, but the exam is limited d/t obesity. The pt is diaphoretic. Pts lab results show RBC of 5.69, Hct of 53, absolute neutrophils of 8.4, Potassium of 3.2, Anion gap of 16, BUN of 26, BUN/ Creatinine ratio of 26.3, Calcium of 11.2, ALT of 81, Alkaline Phosphate of 120 , CRP of 8.06, and Lipase of 86. The pts lactic acid is 3.8, and his troponin I is 0.00. As of 1153, pt states that his pain is still at a 6/10, and that he was considered for surgery on his diaphragmatic hernia, but they were waiting for him to lose 80-100lbs. 1154 - I spoke with Dr. Wynn who stated that the patient has a volvulus of the hernia. 1157 - I spoke with Dr. Maldonado about the pt's CT results and he will be coming to see the patient immediately. 1204 - The pt's HR is now in the 140s, and I have informed the patient and his family of the diagnosis, and that surgery will be coming to see them immediately. They are agreeable with this plan. CT abd/pelv shows: There is a large diaphragmatic hernia with multiple abdominal contents noted in the chest including the stomach, pancreas, large and small bowel. There is abrupt termination of the superior mesenteric artery as it crosses into the diaphragmatic hiatus. This was previously patent and the possibility of a volvulus should be considered. Infiltration of fat is noted in the mesentery on the left including above and below the diaphragm. EKG at 1208 shows sinus tachycardia at 143bpm with no STEMI. 1239 - Dr. Maldonado in room with patient with Marline from surgery. 1254 The pts blood pressure decreased, his HR increased, and his line was lost. The nurses began a new line and started another bag of fluids. 1255 - I requested general surgery and anesthesia at bedside. 1300 I spoke with Guido about the pts emergent cardioversion, and he stated it could be worthwhile. 1309 - Pt's HR came down to 130s spontaneously, revealing P waves and atrial flutter. There is no need for cardioversion at this time. BP also spontaneously dropped to 128. EKG at 1253 shows sinus tachycardia at 150bpm with no STEMI. The pt will be sent straight to the OR. Pt departed to OR at 1314. - Diagnoses Provider Diagnoses: Gastric volvulus - Provider Notifications Discussed Care Of Patient With: López Maldonado Time Discussed With Above Provider: 11:57 Instructed by Provider To: Other - adm to pre-op immediately Admit/Transition Orders Completed By ED Provider: Yes - Critical Care Time Critical Care Time: 75-104 min - 90minutes Discharge - Sign-Out/Discharge Documenting (check all that apply): Patient Departure - adm to OR - Discharge Plan Condition: Stable Disposition: ADMITTED TO [facility] Referrals: Familia Taveras MD [Primary Care Provider] - - Attestation Statements Document Initiated by Scribe: Yes Documenting Scribe: Xiomara Sanchez Provider For Whom Scribe is Documenting (Include Credential): Kirby Smith MD. Scribe Attestation: I, Xiomara Sanchez, scribed for Kirby Smith MD. on 09/25/18 at 1357. Status of Scribe Document: Ready Consult Consult: 1154 - I spoke with Dr. Wynn who stated that the patient has a volvulus of the hernia. 1157 - I spoke with Dr. Maldonado about the pt's CT results and he will be coming to see the patient immediately. 1300 I spoke with Guido about the pts emergent cardioversion, and he stated it could be worthwhile.
[2018-09-25 08:55] LABS: Calcium 11.2 mg/dL (8.6-10.3); Potassium 3.2 mmol/L (3.5-5.0); Total Bilirubin 0.6 mg/dL (0.2-1.0)
[2018-09-25 09:01] LABS: Albumin/Globulin Ratio 1.5 (1-3); BUN/Creatinine Ratio 26.3 (8-20); C Reactive Protein 8.06 mg/L (<8.01); EGFR African American 97.6 (>60); EGFR Non-African American 80.7 (>60); Globulin 3.4 g/dL (2-4); Total Protein 8.4 g/dL (6.4-8.9)
[2018-09-25] MEDS ORDERED: NS 0.9% 1000 ML** 1,000 ML IV ONE ×2 (09:03→12:04)
[2018-09-25] MEDS ORDERED: Iohexol 300* (CONTRAST) 10 ML SDV IV ONE (09:17)
[2018-09-25] MEDS ORDERED: Succinylcholine* 20 MG/ML 10 ML VIAL ONE (12:43)
[2018-09-25] MEDS ORDERED: Lidocaine 2% PF * 5 ML VIAL ONE (12:43)
[2018-09-25] MEDS ORDERED: fentaNYL* 50 MCG/ML 5 ML VIAL (250 MCG VIAL) ONE (12:43)
[2018-09-25] MEDS ORDERED: Etomidate* 2 MG/ML 10 ML VIAL ONE (12:43)
[2018-09-25] MEDS ORDERED: Propofol* 10 MG/ML 20 ML BTL ONE (12:43)
[2018-09-25] MEDS ORDERED: Rocuronium* 10 MG/ML VIAL ONE ×2 (13:43→14:40)
[2018-09-25] MEDS ORDERED: Hetastarch 6% in NS* 500 ML IV ONE (14:06)
[2018-09-25] MEDS ORDERED: VASOPRESSIN 20 UNITS/ML 1 ML VIAL ONE (14:29)
[2018-09-25] MEDS ORDERED: Midazolam* 1 MG/ML 2 ML VIAL (2 MG) ONE (14:53)
[2018-09-25] MEDS ORDERED: Albumin Human 5%* 25 GM/500 ML BTL IV ONE (15:00)
[2018-09-25 15:08] LABS: ABS Lymphocytes 0.9 10^3/ul (1.0-4.8); ABS Monocytes 0.8 10^3/ul (0-0.8); ABS Neutrophils 14.4 10^3/ul (1.5-7.7); Hematocrit 36 % (42-52); Hemoglobin 11.7 g/dL (14.0-18.0); Lymphocyte % 5.7 %; Mean Corpuscular HGB Conc 33 g/dL (31-36); Mean Corpuscular Hemoglobin 30 pg (27-31); Mean Corpuscular Volume 93 fL (80-94); Platelet Count 249 10^3/uL (150-450); Red Blood Count 3.85 10^6 /uL (4.18-5.48); Red Cell Distribution Width 13 % (10-15); White Blood Count 16.1 10^3/uL (3.5-10.8)
--- NOTE | 2018-09-25 15:20 | HP ---
HISTORY AND PHYSICAL: DATE OF ADMISSION: 09/25/18 CHIEF COMPLAINT: Abdominal pain. HISTORY OF PRESENT ILLNESS: This pleasant 47-year-old gentleman presented to the emergency room early this morning after initial onset of abdominal pain at around 3:30 or 4 o'clock in the morning. Pain is sharp, constant, and has been increasing since he has been here. Their work up included CT scan of the abdomen and pelvis, which revealed a large hiatal hernia with gastric and potentially colonic contents in the chest, was concerned for torsion with possible SMA obstruction due to the torsion. The patient had a known large hiatal hernia, was being seen in [place] with plans on surgery there after a large medical workup, which has not been completed yet. This included a pacemaker for his AFib. He is supposed to lose weight and has lost 40 pounds. PAST MEDICAL HISTORY: Atrial fibrillation. Denies history of MRI. He wears oxygen at home. There is no history of diabetes. PAST SURGICAL HISTORY: No prior abdominal surgery. MEDICATIONS: 1. Eliquis. 2. Ramipril. 3. Amiodarone ALLERGIES: No known drug allergies. FAMILY HISTORY: No apparent history colorectal or breast cancer. SOCIAL HISTORY: He is here with his . He is an ex-smoker. Alcohol use is unknown. REVIEW OF SYSTEMS: General: He has had some weight loss. HEENT: No change in vision, hearing or swelling. No sore throat. Cardiac: There is some chest pain now referred from his abdomen. Pulmonary: No cough. GI: No blood per rectum. : No hematuria. Skin: Denies any rash. Neuro: No headache or dizziness. Musculoskeletal: No extremity weakness. Psych: No anxiety or depression. PHYSICAL EXAMINATION GENERAL: Pleasant obese gentleman, who is currently tachycardic and hypotensive. HEENT: Sclerae are anicteric. Oral mucosa is pink and moist. NECK: Supple. No JVD. LUNGS: Clear anteriorly. HEART: Tachycardic. ABDOMEN: Obese, soft, tender in the upper abdomen. EXTREMITIES: No clubbing, cyanosis, or edema. NEUROLOGIC: Grossly intact. No focal motor sensory deficits. LABORATORY STUDIES: Showed an elevated white blood cell count of 10.7, H and H 53/17, potassium 3.2. IMPRESSION: Likely ischemic bowel secondary to torsion from large hiatal hernia in critically ill patient with a poor cardiac history. PLAN: Plan will be for emergent exploratory laparotomy, possible bowel resection, possible ostomy. The situation was described to the patient and his . Possibility of having ischemic bowel having torsion, having significant cardiac issues during the case were all discussed. The fire hazard inspector was able to speak to the anesthesiologist. The family knows there his risk is increasingly and extremely high due to his poor cardiac condition. He is at risk for bleeding because of his Eliquis, which he last took 24 hours ago. However, at this time, there is no alternative except to explore him. All questions were answered. The patient gave consent for surgery. [id number]/[facility] #: [id number] MTDD
[2018-09-25 15:25] LABS: INR 1.41 (0.82-1.09)
[2018-09-25 15:32] LABS: BUN/Creatinine Ratio 22.7 (8-20); Calcium 7.5 mg/dL (8.6-10.3); EGFR African American 78.9 (>60); EGFR Non-African American 65.2 (>60); Potassium 4.4 mmol/L (3.5-5.0)
[2018-09-25] MEDS ORDERED: Norepinephrine 16MCG/ML IVPRE* 4,000 MCG/250 ML BAG IV ONE (17:23)
[2018-09-25] MEDS: fentaNYL* 50 MCG/ML 2 ML VIAL (100 MCG VIAL) IV SLOW PU PRN ×3 (18:17→21:22)
[2018-09-25] MEDS ORDERED: Propofol* 100 ML IV SCH (19:00)
[2018-09-25] MEDS ORDERED: fentaNYL* 50 MCG/ML 2 ML VIAL (100 MCG VIAL) IV ONE (19:15)
[2018-09-25] MEDS ORDERED: Lactated Ringers 1000 ML Bag* 1,000 ML IV ONE ×2 (20:00→22:30)
[2018-09-25] MEDS: Norepinephrine 16MCG/ML IVPRE* 4,000 MCG/250 ML BAG IV SCH ×3 (20:00→23:18)
--- NOTE | 2018-09-25 20:15 | PN ---
Date of Service: 09/25/18 Critical Care Services: 47 y/o obese male with incracerated hiatal hernia brought to ICU postop following resectional surgery - plan is a return trip to OR tomorrow. Patient is currently on a ventilator and is vasopressor-dependent (norepinephrine at 25 mcg/min) - is sedated with propofol, and has fentanyl for pain control. Urine output has been poor. Vital Signs: Temp Pulse Resp BP SpO2 FiO2 96.8 F 110 19 95/78 100 100 Physical Exam: Gen:Unresponsive (on propofol) Lungs: Clear Abdomen: Distended - open wound along anterior abdomen, with vacuum dressing. Extremities:warm. No cyanosis. Skin: very pale. Fluid Balance (Past 24 Hours): 09/26/18 06:59 Intake Total 1000 Balance 755 Weight 291 lb 0.163 oz Intake: IV Fluids 1000 Output: Dennis 245 Other: Date of Last Bowel 09/24/18 Movement Labs: 09/25/18 09/25/18 09/25/18 08:31 08:31 08:31 WBC 10.7 RBC 5.69 H Hgb 17.2 Hct 53 H MCV 92 MCH 30 MCHC 33 RDW 13 Plt Count 322 MPV 8.8 Neut % (Auto) 77.7 Lymph % (Auto) 17.1 [place] % (Auto) 4.6 Eos % (Auto) 0.1 Baso % (Auto) 0.5 Absolute Neuts (auto) 8.4 H Absolute Lymphs (auto) 1.8 Absolute Monos (auto) 0.5 Absolute Eos (auto) 0.0 Absolute Basos (auto) 0.1 Absolute Nucleated RBC 0.0 Nucleated RBC % 0.1 INR (Anticoag Therapy) ABG pH ABG pCO2 ABG pO2 ABG HCO3 ABG O2 Saturation ABG Base Excess Sodium 141 Potassium 3.2 L Chloride 101 Carbon Dioxide 24 Anion Gap 16 H BUN 26 H Creatinine 0.99 Est GFR ( Amer) 97.6 Est GFR (Non-Af Amer) 80.7 BUN/Creatinine Ratio 26.3 H Glucose 193 H Lactic Acid 3.8 H* Calcium 11.2 H Total Bilirubin 0.60 AST 28 ALT 81 H Alkaline Phosphatase 120 H Troponin I 0.00 C-Reactive Protein 8.06 H Total Protein 8.4 Albumin 5.0 Globulin 3.4 Albumin/Globulin Ratio 1.5 Lipase 86 H 09/25/18 09/25/18 09/25/18 14:51 14:51 14:51 WBC 16.1 H RBC 3.85 L Hgb 11.7 L Hct 36 L MCV 93 ABG pH 7.12 L* ABG pCO2 50 H ABG pO2 399 H ABG HCO3 14.8 L ABG O2 Saturation 100.0 H ABG Base Excess -13.0 L Sodium 139 Potassium 4.4 Chloride 110 Carbon Dioxide 16 L Anion Gap 13 H BUN 27 H Creatinine 1.19 H Glucose 250 Lactic Acid Calcium 7.5 L Total Bilirubin AST ALT Alkaline Phosphatase Troponin I C-Reactive Protein Total Protein Albumin Globulin Albumin/Globulin Ratio Lipase 09/25/18 14:51 WBC RBC Hgb Hct MCV MCH MCHC RDW Plt Count MPV Neut % (Auto) Lymph % (Auto) [place] % (Auto) Eos % (Auto) Baso % (Auto) Absolute Neuts (auto) Absolute Lymphs (auto) Absolute Monos (auto) Absolute Eos (auto) Absolute Basos (auto) Absolute Nucleated RBC Nucleated RBC % INR (Anticoag Therapy) 1.41 H Studies: None postop Nutrition: NPO Impression: Incarcerated hiatal hernia - postop problem with hypotension requiring high- dose vasopressor support. Plan: 1. General supportive care 2. Monitor H/H and lactate levels 3. Attempt to wean vasopressor after volume infusion. 4. RBC transfusions as needed. Patient's at bedside and aware of current situation. Critical Care Time: 70 minutes
[2018-09-25 20:17] LABS: ABS Lymphocytes 1.3 10^3/ul (1.0-4.8); ABS Monocytes 1.6 10^3/ul (0-0.8); ABS Neutrophils 23.2 10^3/ul (1.5-7.7); Hematocrit 43 % (42-52); Lymphocyte % 4.8 %; Mean Corpuscular HGB Conc 33 g/dL (31-36); Mean Corpuscular Hemoglobin 31 pg (27-31); Mean Corpuscular Volume 94 fL (80-94); Nucleated Red Blood Cells % 0.1; Platelet Count 306 10^3/uL (150-450); Red Blood Count 4.58 10^6 /uL (4.18-5.48); Red Cell Distribution Width 13 % (10-15); White Blood Count 26.1 10^3/uL (3.5-10.8)
--- NOTE | 2018-09-25 20:27 | OP ---
CONTINUATION ADDENDUM NOW INCLUDED ON THIS REPORT DATE OF OPERATION: 09/25/18 - ROOM #ICU-07 DATE OF : 68 SURGEON: López Maldonado M.D. ANESTHESIOLOGIST: Ramiro Vazquez MD PRE-OP DIAGNOSIS: Large hiatal hernia containing small and large intestine and stomach with torsion of small bowel with compromise of superior mesenteric artery by CT scan. POST-OP DIAGNOSIS: Large hiatal hernia containing small and large intestine and stomach with torsion of small bowel with compromise of superior mesenteric artery by CT scan, very ischemic appearing bowel at initial exploration, resolution of ischemia, and conversion to perfused bowel after reduction of contents and lysis of adhesion and reduction of volvulus bowel. OPERATIVE PROCEDURE: Exploratory laparotomy, reduction of incarcerated hiatal hernia contents including stomach, colon, small bowel, lysis of adhesion obstructing small bowel, reduction of volvulus causing mesenteric ischemia, suture of Velcro-like material in the fascia, and open abdomen left with plans for second-look surgery tomorrow. Placement of left subclavian central line catheter. INDICATIONS FOR PROCEDURE: A 47-year-old gentleman with known large hiatal hernia, who is in the middle of preoperative workup to have a repair at [facility] according to the family, which included weight loss, placement of a pacemaker, which had not happened yet, who developed abdominal pain and was noted to have incarcerated bowel, volvulus ischemia apparent by a CT scan. Risks of surgery included but not limited to bleeding, infection, recurrent hernia, volvulus ischemia, arrhythmia, UT, pneumonia, PE, explained to the patient and family. He was considered incredibly high risk prior to surgery where he was noted to be tachycardic, hypotensive. They wished to proceed with surgery and all questions were answered and consent was signed. DESCRIPTION OF PROCEDURE: The patient was taken to the operating room and placed supine. Preoperative antibiotics were given. After the successful induction of general endotracheal anesthesia, a central line was placed in the left subclavian vein. Under sterile condition using Seldinger technique, it was sutured in place. This was used for fluid resuscitation and the central line was placed by ga. The abdomen was then prepped and draped in sterile fashion. Time-out was performed indicating correct patient and correct procedure. A midline incision was made with a 10 blade and carried down through the subcutaneous tissue. The incision was from the xiphoid down to below the umbilicus. Thick layer of subcutaneous fat was divided with Bovie cautery. The fascia was divided with Bovie cautery. The peritoneal cavity was entered. Dark purple ischemic-appearing edematous bowel was noted throughout. Turbid fluid was seen and malodorous. Fluid was aspirated out of the abdomen. The patient was placed in a reverse Trendelenburg position and the small bowel contents were carefully reduced and taken out of the large hiatal hernia. Next , the colon was removed along with a very large thick omentum and brought back into the abdominal cavity and finally the stomach was brought down and out of the large hiatal hernia. Small bowel was run from the ligament of Treitz to the ileocecal valve and was noted to be a dense adhesion in the mid small bowel tacking the small bowel down, presumably causing this torsion around the SMA. This was lysed and the small bowel was rotated in the counter-clockwise fashion and brought back into a normal anatomic position. Almost immediately the bowel began to pink up, turning from a deep purple, almost black, down to blue, and then eventually pink bowel throughout with some dark patchy areas. The abdomen was then copiously irrigated with some warm saline and aspirated dry. The appendix appeared normal. The cecum was enlarged, somewhat dusky, but began to pink up as well and looked normal. Ascending colon and transverse colon looked normal. Descending and sigmoid colon looked normal. The stomach looked normal and did not appear to be ischemic. Decision was made to leave the patient's abdomen open at this point as his vital signs significantly improved. Once blood flow returned to the bowel and everything was reduced, there was no further obstruction. Decision was made to leave the abdomen open to have a second-look surgery tomorrow. A piece of very thick omentum attached to the stomach was isolated with a 0 PDS suture and tacked to the fascia down, holding the stomach down into the abdomen. Split piece of sterile Velcro material was then brought onto the field, one side was sutured to the left side of the fascia , the other piece was sutured to the right side of fascia to assist in closure. Xeroform gauze, 5 sheaths were placed over the exposed bowel and then a wet radial pigtail was placed over this and the Velcro was used to hold everything in. The skin was then loosely approximated using a running, looping 0 PDS suture. The Velcro had been sutured in with #1 PDS in a running fashion. A second moist towel was placed over the skin and an Ioban drape was placed over, all this sealing everything. The patient clinically looked much improved, was taken to the intensive care unit where a wound VAC was placed through the Ioban drape with a longitudinal sponge being placed over an open area of the drape on top of the towel. The Ioban had been prepped with Betadine just prior to this. This was performed because the fluid was collecting underneath the Ioban and this would control the fluid. [id number]/[facility] #: [id number]- [id number]/[facility] #: [id number] FRANCIS
[2018-09-25] MEDS ORDERED: Vasopressin* 100 UNITS in D5W 250 ML BAG IV SCH (21:30)
--- NOTE | 2018-09-25 21:50 | OP ---
DATE OF OPERATION: 09/25/18 - ROOM #ICU-07 DATE OF : 68 SURGEON: López Maldonado MD PRE-OP DIAGNOSIS: Large hiatal hernia containing small and large intestine and stomach with torsion of small bowel with compromise of superior mesenteric artery by CT scan. POST-OP DIAGNOSIS: Large hiatal hernia containing small and large intestine and stomach with torsion of small bowel with compromise of superior mesenteric artery by CT scan, very ischemic appearing bowel at initial exploration, resolution of ischemia, and conversion to perfused bowel after reduction of contents and lysis of adhesion and reduction of volvulus bowel. OPERATIVE PROCEDURE: Exploratory laparotomy, reduction of incarcerated hiatal hernia contents including stomach, colon, small bowel, lysis of adhesion obstructing small bowel, reduction of volvulus causing mesenteric ischemia, suture of Velcro-like material in the fascia, and open abdomen left with plans for second-look surgery tomorrow. Placement of left subclavian central line catheter. INDICATIONS FOR PROCEDURE: A 47-year-old gentleman with known large hiatal hernia, who is in the middle of preoperative workup to have a repair at [facility] according to the family, which included weight loss, placement of a pacemaker, which had not happened yet, who developed abdominal pain and was noted to have incarcerated bowel, volvulus ischemia apparent by a CT scan. Risks of surgery included but not limited to bleeding, infection, recurrent hernia, volvulus ischemia, arrhythmia, PA, pneumonia, PE, explained to the patient and family. He was considered incredibly high risk prior to surgery where he was noted to be tachycardic, hypotensive. They wished to proceed with surgery and all questions were answered and consent was signed. DESCRIPTION OF PROCEDURE: The patient was taken to the operating room and placed supine. Preoperative antibiotics were given. After the successful induction of general endotracheal anesthesia, a central line was placed in the left subclavian vein. Under sterile condition using Seldinger technique, it was sutured in place. This was used for fluid resuscitation and the central line was placed by oh. The abdomen was then prepped and draped in sterile fashion. Time-out was performed indicating correct patient and correct procedure. A midline incision was made with a 10 blade and carried down through the subcutaneous tissue. The incision was from the xiphoid down to below the umbilicus. Thick layer of subcutaneous fat was divided with Bovie cautery. The fascia was divided with Bovie cautery. The peritoneal cavity was entered. Dark purple ischemic-appearing edematous bowel was noted throughout. Turbid fluid was seen and malodorous. Fluid was aspirated out of the abdomen. The patient was placed in a reverse Trendelenburg position and the small bowel contents were carefully reduced and taken out of the large hiatal hernia. Next , the colon was removed along with a very large thick omentum and brought back into the abdominal cavity and finally the stomach was brought down and out of the large hiatal hernia. Small bowel was run from the ligament of Treitz to the ileocecal valve and was noted to be a dense adhesion in the mid small bowel tacking the small bowel down, presumably causing this torsion around the SMA. This was lysed and the small bowel was rotated in the counter-clockwise fashion and brought back into a normal anatomic position. Almost immediately the bowel began to pink up, turning from a deep purple, almost black, down to blue, and then eventually pink bowel throughout with some dark patchy areas. The abdomen was then copiously irrigated with some warm saline and aspirated dry. The appendix appeared normal. The cecum was enlarged, somewhat dusky, but began to pink up as well and looked normal. Ascending colon and transverse colon looked normal. Descending and sigmoid colon looked normal. The stomach looked normal and did not appear to be ischemic. Decision was made to leave the patient's abdomen open at this point as his vital signs significantly improved. Once blood flow returned to the bowel and everything was reduced, there was no further obstruction. Decision was made to leave the abdomen open to have a second-look surgery tomorrow. A piece of very thick omentum attached to the stomach was isolated with a 0 PDS suture and tacked to the fascia down, holding the stomach down into the abdomen. Split piece of sterile Velcro material was then brought onto the field, one side was sutured to the left side of the fascia , the other piece was sutured to the right side of fascia to assist in closure. Xeroform gauze, 5 sheaths were placed over the exposed bowel and then a wet radial pigtail was placed over this and the Velcro was used to hold everything in. The skin was then loosely approximated using a running, looping 0 PDS suture. The Velcro had been sutured in with #1 PDS in a running fashion. A second moist towel was placed over the skin and an Ioban drape was placed over, all this sealing everything. The patient clinically looked much improved, was taken to the intensive care unit where a wound VAC was placed through the Ioban drape with a longitudinal sponge being placed over an open area of the drape on top of the towel. The Ioban had been prepped with Betadine just prior to this. This was performed because the fluid was collecting underneath the Ioban and this would control the fluid. [id number]/[facility] #: [id number] [facility]
[2018-09-25] MEDS ORDERED: fentaNYL INFUSION 50 MCG/ML* 2,500 MCG/50 ML BAG IV SCH (22:00)
[2018-09-25] MEDS: Dexmedetomidine* 1,000 MCG in NS 0.9% 250 ML* 240 ML IV SCH (23:13)
[2018-09-25 23:14] LABS: Hematocrit 42 % (42-52); Hemoglobin 13.4 g/dL (14.0-18.0); Mean Corpuscular HGB Conc 32 g/dL (31-36); Mean Corpuscular Hemoglobin 30 pg (27-31); Mean Corpuscular Volume 93 fL (80-94); Mean Platelet Volume 8.9 fL (7.4-10.4); Platelet Count 288 10^3/uL (150-450); Red Blood Count 4.47 10^6 /uL (4.18-5.48); Red Cell Distribution Width 13 % (10-15); White Blood Count 21.7 10^3/uL (3.5-10.8)
[2018-09-25 23:29] LABS: BUN/Creatinine Ratio 17.4 (8-20); Calcium 7.6 mg/dL (8.6-10.3); EGFR African American 47.7 (>60); EGFR Non-African American 39.5 (>60); Magnesium 1.5 mg/dL (1.9-2.7)
[2018-09-25 23:33] LABS: Potassium 5.4 mmol/L (3.5-5.0)
[2018-09-26] MEDS: Norepinephrine 16MCG/ML IVPRE* 4,000 MCG/250 ML BAG IV SCH ×3 (01:01→06:07)
[2018-09-26] MEDS ORDERED: DOPamine 800 MG/250 ML IVPREM* 800 MG/250 ML ML CENTR SCH (02:00)
[2018-09-26] MEDS: fentaNYL* 50 MCG/ML 2 ML VIAL (100 MCG VIAL) IV SLOW PU PRN ×5 (03:24→19:17)
[2018-09-26] MEDS ORDERED: Piperacillin/Tazobac ADVAN(*) 3.375 GM in NS 0.9% 100 ML* 100 ML IVPB ONE (04:30)
[2018-09-26] MEDS ORDERED: Albumin Human 25%* 12.5 GM/50 ML BTL IV ONE ×2 (04:45→04:47)
[2018-09-26 04:53] LABS: Hematocrit 37 % (42-52); Mean Corpuscular HGB Conc 32 g/dL (31-36); Mean Corpuscular Hemoglobin 30 pg (27-31); Mean Corpuscular Volume 94 fL (80-94); Mean Platelet Volume 9.4 fL (7.4-10.4); Platelet Count 243 10^3/uL (150-450); Red Cell Distribution Width 13 % (10-15); White Blood Count 20.4 10^3/uL (3.5-10.8)
[2018-09-26 05:08] LABS: Albumin 2.3 g/dL (3.2-5.2); Albumin/Globulin Ratio 1.6 (1-3); BUN/Creatinine Ratio 15.2 (8-20); Calcium 7.1 mg/dL (8.6-10.3); EGFR African American 36.9 (>60); EGFR Non-African American 30.5 (>60); Globulin 1.4 g/dL (2-4); Total Bilirubin 0.6 mg/dL (0.2-1.0); Total Protein 3.7 g/dL (6.4-8.9)
[2018-09-26 05:13] LABS: Potassium 5.8 mmol/L (3.5-5.0)
[2018-09-26 05:34] LABS: ABS Lymphocytes 0.8 10^3/ul (1.0-4.8); ABS Monocytes 2.2 10^3/ul (0-0.8); ABS Neutrophils 17.3 10^3/ul (1.5-7.7); Lymphocyte % 4.1 %
[2018-09-26] MEDS ORDERED: Pantoprazole IV* 40 MG IV ONE (05:45)
[2018-09-26] MEDS: Pantoprazole IV* 40 MG IV SCH (06:22)
--- NOTE | 2018-09-26 07:34 | PN ---
Progress Note - Progress Note Date of Service: 09/26/18 Note: Patient seen multiple times overnight between midnight and 330AM. He is post-op , with open abdomen. He has shock, on maximum doses levophed and vasopressin. Drain put out approx 600 ml bloody fluid. NGTube put out 900 ml bloody fluid. Selected Entries 09/26/18 09/26/18 09/26/18 03:21 03:30 03:32 Temperature 38.0 C 38.0 C 38.0 C Heart Rate 131 132 Blood Pressure 60/35 (mmHg) Arterial Blood 54/43 54/42 Pressure (ART) 09/26/18 09/26/18 09/26/18 03:45 04:16 04:30 Temperature 38.1 C 38.3 C 38.3 C Heart Rate 107 101 Blood Pressure 66/35 (mmHg) Arterial Blood 49/41 44/38 Pressure (ART) 09/26/18 09/26/18 09/26/18 04:31 04:45 05:00 Temperature 38.3 C 38.4 C 38.2 C Heart Rate 113 Blood Pressure (mmHg) Arterial Blood 45/39 42/37 76/61 Pressure (ART) 09/26/18 09/26/18 09/26/18 05:01 05:15 06:00 Temperature 38.2 C 37.5 C Heart Rate 114 111 Blood Pressure (mmHg) Arterial Blood Pressure (ART) 09/26/18 09/26/18 06:15 06:16 Temperature 37.7 C 37.7 C Heart Rate Blood Pressure (mmHg) Arterial Blood Pressure (ART) Interventions included: multiple fluid boluses of LR Initiation of dopamine, limited by tachycardia Stopping versed, starting Precedex Weaning off fentanyl as a trial to improve BP. Initiating Zosyn for sepsis. Laboratory Tests 09/25/18 09/25/18 09/25/18 20:00 23:00 23:00 WBC 21.7 H Hgb 13.4 L Plt Count 288 Potassium 5.4 H Carbon Dioxide 18 L Anion Gap 12 H Creatinine 1.84 H Glucose 206 H Lactic Acid 7.4 H* Magnesium 1.5 L 09/25/18 23:00 WBC Hgb Plt Count Potassium Carbon Dioxide Anion Gap Creatinine Glucose Lactic Acid 7.9 H* Magnesium Patient remained oliguric, Uout 5-10 ml/hr Concern include hypovolemic shock, septic shock, acute renal failure, post-op bleeding Dr. Maldonado contacted, he will assess patient, consider return to OR. Total time spent at bedside 90 minutes.
[2018-09-26] MEDS ORDERED: Norepinephrine VIAL* 1 MG/ML 4 ML VIAL ONE (07:39)
[2018-09-26] MEDS ORDERED: Calcium Gluconate INJ* 1 GM in NS 0.9% 50 ML* 50 ML IVPB ONE (08:00)
[2018-09-26] MEDS ORDERED: Magnesium Sulfate 2 GM IV (Premix) IVPB ONE (08:00)
--- NOTE | 2018-09-26 09:02 | PN ---
Progress Note - Progress Note Date of Service: 09/26/18 SOAP: Subjective: []intubated, awake, following commands, answering questions Objective: [] Temp Pulse Resp BP Pulse Ox 100.9 F 131 22 112/52 99 09/26/18 07:46 09/26/18 07:46 09/26/18 07:00 09/26/18 07:31 09/26/18 07:46 ng tube-bloody output incision/wound vac drainage serosanguenous Assessment: []s/p exploratory lap, melissa, reduction of incarcerated hiatal hernia iscemic small bowel/cecum unstable requiring fluid and vasopressor support prognosis is guarded Plan: []awaiting latest labs plan for 2nd look surgery this am
[2018-09-26] MEDS ORDERED: fentaNYL* 50 MCG/ML 2 ML VIAL (100 MCG VIAL) ONE ×4 (09:23→11:12)
[2018-09-26] MEDS ORDERED: VASOPRESSIN 20 UNITS/ML 1 ML VIAL ONE (09:27)
[2018-09-26] MEDS ORDERED: Albumin Human 25%* 50 GM/200 ML BTL IV ONE (10:00)
[2018-09-26] MEDS ORDERED: EPINEPHRINE IV ONE (10:00)
[2018-09-26 10:04] LABS: Hematocrit 43 % (42-52); Hemoglobin 14.1 g/dL (14.0-18.0)
[2018-09-26 10:14] LABS: Activated Partial Thrombo Time 33.1 seconds (26.0-38.0); INR 1.4 (0.82-1.09)
[2018-09-26 10:15] LABS: BUN/Creatinine Ratio 19.6 (8-20); Blood Urea Nitrogen 35 mg/dL (6-24); CO2 Carbon Dioxide 15 mmol/L (22-32); Calcium 7.3 mg/dL (8.6-10.3); EGFR African American 49.3 (>60); EGFR Non-African American 40.7 (>60); Glucose 109 mg/dL (70-100); Sodium 138 mmol/L (135-145)
[2018-09-26 10:16] LABS: Chloride 114 mmol/L (101-111)
[2018-09-26 10:17] LABS: Anion Gap 9 mmol/L (2-11)
[2018-09-26] MEDS ORDERED: Perflutren Lipid Microsphere* 3 ML VIAL ONE (10:37)
[2018-09-26] MEDS ORDERED: Midazolam* 1 MG/ML 2 ML VIAL (2 MG) ONE ×3 (10:50→11:30)
[2018-09-26] MEDS ORDERED: ALBUMIN HUMAN 5% IV ONE (11:00)
[2018-09-26] MEDS ORDERED: EPINEPHrine SULFITE FREE* 1 MG in D5W 250 ML BAG* 249 ML IV SCH (11:00)
[2018-09-26] MEDS ORDERED: Rocuronium* 10 MG/ML VIAL ONE (11:02)
[2018-09-26] MEDS ORDERED: ceFAZolin 2 GM in NS PREMIX(*) 2 GM/100 ML BAG IVPB ONE (11:12)
--- NOTE | 2018-09-26 12:30 | ECHO ---
*[facility]* [place] [address] Fax #: [phone] Limited Transthoracic Echocardiogram (Report amended [id number]) Patient: Vic Grubbs : 1970 Study Date: 09/26/2018 Age: 47 Gender: M HR: 120 bpm Height: 75 in /190.5 cm BSA: 2.73 m^2 Weight: 300 lb /136.4 kg BMI: 37.6 kg/m^2 *Milled Rice Broker: * Desire Baker RDCS RN *Reading Physician: * Marshall Lora MD Indications: Hypotension History: Atrial fibrillation. Risk factors: Former tobacco use. Obese. Conclusions Summary: 1. Study data: Transthoracic echocardiogram, limited study. 2. Left ventricle: Visualization of the left ventricle was attempted from multiple views and the imaging was poor. Definity was given IV and in an A4C view, unable to evaluate the left ventricular function. Resting tachycardia noticed. . The exam was abbreviated as the patient was being taken to the OR urgently. I was present at bedside in the intensive care unit. I discussed the results with the present doctors in the room. Study data: Transthoracic echocardiogram, limited study. Procedure: Transthoracic echocardiography was performed. Image quality was poor. The study was technically limited due to poor acoustic windows, body habitus, and smoking history. The patient was on a ventilator and vasopressors at the time of the study. Definity 3 ml was given IV by Candi Haji RN. Patient status: Inpatient. Patient room number: ICU 7. Study status: STAT. Rhythm: Tachycardia. Findings Left ventricle: Visualization of the left ventricle was attempted from multiple views and the imaging was poor. Definity was given IV and in an A4C view, unable to evaluate the left ventricular function. Resting tachycardia noticed. . The exam was abbreviated as the patient was being taken to the OR urgently. I was present at bedside in the intensive care unit. I discussed the results with the present doctors in the room. Amended Marshall Lora MD 09/26/2018 14:38
[2018-09-26] MEDS: Pantoprazole* 80 mg IN NS 80 MG/250 ML BAG IV SCH ×2 (12:57→22:41)
[2018-09-26] MEDS: Norepinephrine VIAL* 8 MG in NS 0.9% 500 ML* 492 ML IV SCH ×5 (13:03→23:04)
--- NOTE | 2018-09-26 13:14 | OP ---
OPERATIVE REPORT: DATE OF OPERATION: 09/26/18 DATE OF : 68 SURGEON: López Maldonado MD. FIST MARINE ENGINE DRIVER: Phoebe Estrella NP. PRE-OP DIAGNOSES: Status post exploratory laparotomy, lysis of adhesions, reduction of large hiatal hernia with gastric, small bowel, and large intestine contents yesterday. POST-OP DIAGNOSIS: Status post exploratory laparotomy, lysis of adhesion, reduction of large hiatal hernia with gastric, small bowel, and large intestine contents yesterday. OPERATIVE PROCEDURE: INDICATION FOR PROCEDURE: The patient has remained hemodynamically unstable, on and off through the evening and this morning. He was taken back to evaluate the intraabdominal contents, second look humaira anabell. DESCRIPTION OF PROCEDURE: The patient was taken to the operating room, placed supine. The previously placed Ioban drape was removed and the skin was prepped with Betadine. The abdomen was draped in a sterile fashion. The skin was opened and previously placed towel and 5 Xeroform gauzes were removed. The bowel was evaluated. The cecum appeared viable. Terminal ileal jejunum appeared normal. There was a small area that appeared slightly dusky. However, there was some peristalsis and overall appe ared viable all the way to the ligament of Treitz. There was no active bleeding. Third space fluid w as noted in the abdomen. The colon, otherwise, appeared normal to the sigmoid and transverse colon n ow that the contents were back in the hiatal hernia. The stomach was viable. Some more irrigation w as administered and aspirated. Bowels were then placed back in the abdominal cavity. Xeroform gauze , 6 pieces were placed over the bowel and then the bowel was covered with a moist towel and radiopaqu e towel x2 and Ioban was placed over the abdomen. A wound VAC was then placed to the Ioban drape wit h a sponge on top of the drape covering the tunnel to aspirate any intraabdominal fluid collected. T he patient's condition remained unchanged during the procedure. He was taken back to the ICU. [id number]/[facility] #: [id number]
[2018-09-26] MEDS ORDERED: Lactated Ringers 1000 ML Bag* 2,000 ML IV SCH (14:00)
[2018-09-26 16:49] LABS: Hematocrit 34 % (42-52); Hemoglobin 11.5 g/dL (14.0-18.0); Mean Corpuscular HGB Conc 34 g/dL (31-36); Mean Corpuscular Hemoglobin 31 pg (27-31); Mean Corpuscular Volume 91 fL (80-94); Mean Platelet Volume 9.5 fL (7.4-10.4); Platelet Count 156 10^3/uL (150-450); Red Blood Count 3.69 10^6 /uL (4.18-5.48); Red Cell Distribution Width 14 % (10-15); White Blood Count 17.4 10^3/uL (3.5-10.8)
[2018-09-26 17:02] LABS: Activated Partial Thrombo Time 43.7 seconds (26.0-38.0); INR 2.13 (0.82-1.09)
[2018-09-26 17:11] LABS: BUN/Creatinine Ratio 21.3 (8-20); Calcium 7.4 mg/dL (8.6-10.3); EGFR African American 49.6 (>60); Magnesium 1.5 mg/dL (1.9-2.7); Phosphorus 3.8 mg/dL (2.5-5.0)
--- NOTE | 2018-09-26 17:24 | PN ---
Date of Service: 09/26/18 Critical Care Services: Back from OR - on 2 vasopressors (Levophed and vasopressin) and most recent lactate is 4.6 Vital Signs: Temp Pulse Resp BP SpO2 FiO2 99.0 F 108 24 47/32 100 80 Physical Exam: Gen: responds to name Lungs: BS diminished throughout Abdomen: Distended. Anterior abdominal wound covered. No BS Extremities:Cool. No cyanosis or edema. Fluid Balance (Past 24 Hours): 09/26/18 06:59 Intake Total 9204 Output Total 3173 Balance 6031 Weight 300 lb 11.368 oz Intake: IV Fluids 7046 LR 6046 NS (0.9%) NS 50ML, Cefazolin 2G IVPB LR NS (0.9%) Medicated IV 2158 CC - Dexmedetomidine/ 80 Precedex CC - Dopamine 87 CC - Norepinephrine/ 1838 Levophed CC - Propofol/Diprivan 103 CC - Vasopressin/ 50 Pitressin Output: NG Tube Drainage Amount 1500 Wound Vac 1000 Dennis 673 Other: Date of Last Bowel 09/24/18 Movement Labs: Laboratory Results - last 24 hr 09/25/18 09/25/18 09/25/18 20:00 20:00 23:00 WBC 26.1 H RBC 4.58 Hgb 14.0 Hct 43 MCV 94 MCH 31 MCHC 33 RDW 13 Plt Count 306 MPV 9.0 Neut % (Auto) 89.1 Lymph % (Auto) 4.8 [place] % (Auto) 6.0 Eos % (Auto) 0.0 Baso % (Auto) 0.1 Absolute Neuts (auto) 23.2 H Absolute Lymphs (auto) 1.3 Absolute Monos (auto) 1.6 H Absolute Eos (auto) 0.0 Absolute Basos (auto) 0.0 Absolute Nucleated RBC 0.0 Immature Gran % 25.0 H Neutrophils % 63.0 Band Neutrophils % 23.0 H Lymphocytes % 6.0 Reactive Lymphs % 1.0 Monocytes % 5.0 Myelocytes % 2.0 H Nucleated RBC % 0.1 Normal RBC Morphology Normal INR (Anticoag Therapy) APTT Sodium Potassium Chloride Carbon Dioxide Anion Gap BUN Creatinine Est GFR ( Amer) Est GFR (Non-Af Amer) BUN/Creatinine Ratio Glucose Lactic Acid 7.4 H* Calcium Ionized Calcium Phosphorus Magnesium Total Bilirubin AST ALT Alkaline Phosphatase Total Protein Albumin Globulin Albumin/Globulin Ratio Blood Type O Positive Antibody Screen Negative Crossmatch See Detail 09/25/18 09/25/18 09/25/18 23:00 23:00 23:00 WBC 21.7 H RBC 4.47 Hgb 13.4 L Hct 42 MCV 93 MCH 30 MCHC 32 RDW 13 Plt Count 288 MPV 8.9 Neut % (Auto) Lymph % (Auto) [place] % (Auto) Eos % (Auto) Baso % (Auto) Absolute Neuts (auto) Absolute Lymphs (auto) Absolute Monos (auto) Absolute Eos (auto) Absolute Basos (auto) Absolute Nucleated RBC Immature Gran % Neutrophils % Band Neutrophils % Lymphocytes % Reactive Lymphs % Monocytes % Myelocytes % Nucleated RBC % Normal RBC Morphology INR (Anticoag Therapy) APTT Sodium 139 Potassium 5.4 H Chloride 109 Carbon Dioxide 18 L Anion Gap 12 H BUN 32 H Creatinine 1.84 H Est GFR ( Amer) 47.7 Est GFR (Non-Af Amer) 39.5 BUN/Creatinine Ratio 17.4 Glucose 206 H Lactic Acid 7.9 H* Calcium 7.6 L Ionized Calcium Phosphorus Magnesium 1.5 L Total Bilirubin AST ALT Alkaline Phosphatase Total Protein Albumin Globulin Albumin/Globulin Ratio Blood Type Antibody Screen Crossmatch 09/26/18 09/26/18 09/26/18 04:40 04:40 04:40 WBC 20.4 H RBC 4.00 L Hgb 12.0 L Hct 37 L MCV 94 MCH 30 MCHC 32 RDW 13 Plt Count 243 MPV 9.4 Neut % (Auto) 84.9 Lymph % (Auto) 4.1 [place] % (Auto) 10.9 Eos % (Auto) 0.0 Baso % (Auto) 0.1 Absolute Neuts (auto) 17.3 H Absolute Lymphs (auto) 0.8 L Absolute Monos (auto) 2.2 H Absolute Eos (auto) 0.0 Absolute Basos (auto) 0.0 Absolute Nucleated RBC 0.0 Immature Gran % Neutrophils % Band Neutrophils % Lymphocytes % Reactive Lymphs % Monocytes % Myelocytes % Nucleated RBC % 0.0 Normal RBC Morphology INR (Anticoag Therapy) APTT Sodium 138 Potassium 5.8 H Chloride 112 H Carbon Dioxide 17 L Anion Gap 9 BUN 35 H Creatinine 2.30 H Est GFR ( Amer) 36.9 Est GFR (Non-Af Amer) 30.5 BUN/Creatinine Ratio 15.2 Glucose 130 H Lactic Acid Calcium 7.1 L Ionized Calcium 1.07 L Phosphorus Magnesium Total Bilirubin 0.60 AST 72 H ALT 79 H Alkaline Phosphatase 37 Total Protein 3.7 L Albumin 2.3 L Globulin 1.4 L D Albumin/Globulin Ratio 1.6 Blood Type Antibody Screen Crossmatch 09/26/18 09/26/18 09/26/18 04:40 08:30 08:30 WBC RBC Hgb Hct MCV MCH MCHC RDW Plt Count MPV Neut % (Auto) Lymph % (Auto) [place] % (Auto) Eos % (Auto) Baso % (Auto) Absolute Neuts (auto) Absolute Lymphs (auto) Absolute Monos (auto) Absolute Eos (auto) Absolute Basos (auto) Absolute Nucleated RBC Immature Gran % Neutrophils % Band Neutrophils % Lymphocytes % Reactive Lymphs % Monocytes % Myelocytes % Nucleated RBC % Normal RBC Morphology INR (Anticoag Therapy) 1.40 H APTT 33.1 Sodium 138 Potassium TNP Chloride 114 H Carbon Dioxide 15 L Anion Gap 9 BUN 35 H Creatinine 1.79 H Est GFR ( Amer) 49.3 Est GFR (Non-Af Amer) 40.7 BUN/Creatinine Ratio 19.6 Glucose 109 H Lactic Acid 6.4 H* Calcium 7.3 L Ionized Calcium Phosphorus Magnesium Total Bilirubin AST ALT Alkaline Phosphatase Total Protein Albumin Globulin Albumin/Globulin Ratio Blood Type Antibody Screen Crossmatch 09/26/18 09/26/18 09/26/18 08:30 16:31 16:31 WBC RBC Hgb 14.1 Hct 43 MCV MCH MCHC RDW Plt Count MPV Neut % (Auto) Lymph % (Auto) [place] % (Auto) Eos % (Auto) Baso % (Auto) Absolute Neuts (auto) Absolute Lymphs (auto) Absolute Monos (auto) Absolute Eos (auto) Absolute Basos (auto) Absolute Nucleated RBC Immature Gran % Neutrophils % Band Neutrophils % Lymphocytes % Reactive Lymphs % Monocytes % Myelocytes % Nucleated RBC % Normal RBC Morphology INR (Anticoag Therapy) 2.13 H APTT 43.7 H Sodium 140 Potassium Chloride Carbon Dioxide 20 L Anion Gap BUN 38 H Creatinine 1.78 H Est GFR ( Amer) 49.6 Est GFR (Non-Af Amer) 41.0 BUN/Creatinine Ratio 21.3 H Glucose 113 H Lactic Acid Calcium 7.4 L Ionized Calcium Phosphorus 3.8 Magnesium 1.5 L Total Bilirubin AST ALT Alkaline Phosphatase Total Protein Albumin Globulin Albumin/Globulin Ratio Blood Type Antibody Screen Crossmatch 09/26/18 09/26/18 16:31 16:31 WBC 17.4 H RBC 3.69 L Hgb 11.5 L Hct 34 L MCV 91 MCH 31 MCHC 34 RDW 14 Plt Count 156 MPV 9.5 Neut % (Auto) Lymph % (Auto) [place] % (Auto) Eos % (Auto) Baso % (Auto) Absolute Neuts (auto) Absolute Lymphs (auto) Absolute Monos (auto) Absolute Eos (auto) Absolute Basos (auto) Absolute Nucleated RBC Immature Gran % Neutrophils % Band Neutrophils % Lymphocytes % Reactive Lymphs % Monocytes % Myelocytes % Nucleated RBC % Normal RBC Morphology INR (Anticoag Therapy) APTT Sodium Potassium Chloride Carbon Dioxide Anion Gap BUN Creatinine Est GFR ( Amer) Est GFR (Non-Af Amer) BUN/Creatinine Ratio Glucose Lactic Acid 4.3 H* Calcium Ionized Calcium Phosphorus Magnesium Total Bilirubin AST ALT Alkaline Phosphatase Total Protein Albumin Globulin Albumin/Globulin Ratio Blood Type Antibody Screen Crossmatch Nutrition: NPO Impression: Stable following second OR visit Plan: Wean vasopressors as soon as feasable. Keep on ventilator for anticipated return to OR. Will address nutrition tomorrow. Critical Care Time:
[2018-09-26] MEDS ORDERED: Magnesium Sulfate 2 GM IV* 2 GM/50 ML BAG IVPB ONE (17:26)
[2018-09-26 17:36] LABS: ABS Lymphocytes 1.2 10^3/ul (1.0-4.8); ABS Monocytes 1.5 10^3/ul (0-0.8); ABS Neutrophils 14.7 10^3/ul (1.5-7.7); Lymphocyte % 6.8 %; Nucleated Red Blood Cells % 0.1
[2018-09-26] MEDS: Lactated Ringers 1000 ML Bag* 1,000 ML IV SCH (20:09)
[2018-09-26] MEDS ORDERED: Pantoprazole IV* 40 MG IV SCH (21:00)
[2018-09-26] MEDS ORDERED: Vasopressin* 100 UNITS in D5W 250 ML BAG IV SCH (21:30)
[2018-09-26 22:22] LABS: Potassium 5.4 mmol/L (3.5-5.0)
[2018-09-26] MEDS: Dexmedetomidine* 1,000 MCG in NS 0.9% 250 ML* 240 ML IV SCH (23:38)
[2018-09-27] MEDS: Lactated Ringers 1000 ML Bag* 1,000 ML IV SCH ×5 (00:02→18:25)
[2018-09-27] MEDS ORDERED: Metoprolol Tartrate IV* 1 MG/ML 5 ML VIAL IV PRN (02:11)
[2018-09-27] MEDS ORDERED: Metoprolol Tartrate IV* 1 MG/ML 5 ML VIAL ONE (02:16)
[2018-09-27] MEDS ORDERED: Amiodarone 360 MG IVPREMIX* 0 MG/0 ML BAG IV ONE (02:28)
[2018-09-27] MEDS ORDERED: Amiodarone 150 MG IVPREMIX* 150 MG/100 ML BAG IV ONE ×2 (02:29→02:32)
--- NOTE | 2018-09-27 02:44 | PN ---
Hospitalist Progress Note Date of Service: 09/27/18 I was called for a change in rhythm on tele. Mr. Grubbs converted from NSR in the 100s to an SVT at 150 suddenly. His RN VANDANA reports no other change in condition--pain is being managed with fentanyl drip, no change in bleeding or output from the NG, no change in respirations. Valsalva attempted with no effect. He has a history of atrial fib/flutter and is on metoprolol and amiodarone as an outpatient and has not taken either since Saturday. An EKG shows an SVT suspicious for atrial flutter at 155. Metoprolol 5mg IV was pushed x 2 with no effect. Will attempt amio bolus now. He has been off anticoagulation due to surgery and bleeding. Will check stat labs. Update 04:45: HR continues in 140s, MAPs dropped briefly to 50s. We discontinued the fentanyl and precedex and MAPs improved. I discussed this update with Dr. Og, who recommended another dose of magnesium, 5% albumin infusion, and allowing the amiodarone to continue and advised against cardioversion. Will continue to follow closely. Update: fever. iv tylenol ordered. restart pip/tazo.
[2018-09-27 02:54] LABS: Hematocrit 34 % (42-52); Hemoglobin 11.5 g/dL (14.0-18.0); Mean Corpuscular HGB Conc 34 g/dL (31-36); Mean Corpuscular Hemoglobin 30 pg (27-31); Mean Corpuscular Volume 90 fL (80-94); Mean Platelet Volume 9.6 fL (7.4-10.4); Platelet Count 146 10^3/uL (150-450); Red Blood Count 3.83 10^6 /uL (4.18-5.48); Red Cell Distribution Width 14 % (10-15); White Blood Count 10.5 10^3/uL (3.5-10.8)
[2018-09-27] MEDS: Norepinephrine VIAL* 8 MG in NS 0.9% 500 ML* 492 ML IV SCH ×7 (02:58→23:38)
[2018-09-27] MEDS ORDERED: Amiodarone 360 MG IVPREMIX* 360 MG/200 ML BAG IV ONE ×2 (02:59→03:05)
[2018-09-27 03:08] LABS: BUN/Creatinine Ratio 26.8 (8-20); Calcium 7.3 mg/dL (8.6-10.3); EGFR African American 64.4 (>60); EGFR Non-African American 53.2 (>60); Magnesium 1.7 mg/dL (1.9-2.7); Potassium 4.5 mmol/L (3.5-5.0)
[2018-09-27] MEDS: Chlorhexidine MOUTHWASH 0.12%* 15 ML UDC TOPICAL SCH ×6 (03:10→23:37)
[2018-09-27] MEDS: Dexmedetomidine* 1,000 MCG in NS 0.9% 250 ML* 240 ML IV SCH (03:28)
[2018-09-27] MEDS: Magnesium Sulfate 2 GM IV* 2 GM/50 ML BAG IVPB ONE ×2 (03:37→04:56)
[2018-09-27] MEDS ORDERED: Albumin Human 5%* 12.5 GM/250 ML BTL IV ONE (04:47)
[2018-09-27] MEDS ORDERED: Acetaminophen IV 1GM/100ML * 1,000 MG/100 ML VIAL IVPB ONE (04:51)
[2018-09-27] MEDS ORDERED: Magnesium Sulfate 2 GM IV* 2 GM/50 ML BAG IVPB ONE (04:51)
[2018-09-27] MEDS ORDERED: ZOSYN 3.375 GM x ONE DOSE over 30 miuntes IVPB ×2 (05:30)
--- NOTE | 2018-09-27 06:56 | PN ---
Progress Note - Progress Note Date of Service: 09/27/18 SOAP: Subjective: [] intubated, awake, communicating Objective: [] Laboratory Last Values WBC 10.5 10^3/uL (3.5-10.8) 09/27/18 02:40 RBC 3.83 10^6 /uL (4.18-5.48) L 09/27/18 02:40 Hgb 11.5 g/dL (14.0-18.0) L 09/27/18 02:40 Hct 34 % (42-52) L 09/27/18 02:40 MCV 90 fL (80-94) 09/27/18 02:40 MCH 30 pg (27-31) 09/27/18 02:40 MCHC 34 g/dL (31-36) 09/27/18 02:40 RDW 14 % (10-15) 09/27/18 02:40 Plt Count 146 10^3/uL (150-450) L 09/27/18 02:40 MPV 9.6 fL (7.4-10.4) 09/27/18 02:40 Neut % (Auto) 84.5 % 09/26/18 16:31 Lymph % (Auto) 6.8 % 09/26/18 16:31 [place] % (Auto) 8.6 % 09/26/18 16:31 Eos % (Auto) 0.0 % 09/26/18 16:31 Baso % (Auto) 0.1 % 09/26/18 16:31 Absolute Neuts (auto) 14.7 10^3/ul (1.5-7.7) H 09/26/18 16:31 Absolute Lymphs (auto) 1.2 10^3/ul (1.0-4.8) 09/26/18 16:31 Absolute Monos (auto) 1.5 10^3/ul (0-0.8) H 09/26/18 16:31 Absolute Eos (auto) 0.0 10^3/ul (0-0.6) 09/26/18 16:31 Absolute Basos (auto) 0.0 10^3/ul (0-0.2) 09/26/18 16:31 Absolute Nucleated RBC 0.0 10^3/ul 09/26/18 16:31 Immature Gran % 25.0 % (0-9) H 09/25/18 20:00 Neutrophils % 63.0 % 09/25/18 20:00 Band Neutrophils % 23.0 % (0-8) H 09/25/18 20:00 Lymphocytes % 6.0 % 09/25/18 20:00 Reactive Lymphs % 1.0 % (0-6) 09/25/18 20:00 Monocytes % 5.0 % 09/25/18 20:00 Myelocytes % 2.0 % (0-1) H 09/25/18 20:00 Nucleated RBC % 0.1 09/26/18 16:31 Normal RBC Morphology Normal (Normal) 09/25/18 20:00 INR (Anticoag Therapy) 2.13 (0.82-1.09) H 09/26/18 16:31 APTT 43.7 seconds (26.0-38.0) H 09/26/18 16:31 ABG pH 7.12 (7.35-7.45) L* 09/25/18 14:51 ABG pCO2 50 mmHg (35-45) H 09/25/18 14:51 ABG pO2 399 mmHg (80-100) H 09/25/18 14:51 ABG HCO3 14.8 mmol/L (19-31) L 09/25/18 14:51 ABG O2 Saturation 100.0 % (94.0-98.0) H 09/25/18 14:51 ABG Base Excess -13.0 mmol/L (-2.0-2.0) L 09/25/18 14:51 Sodium 139 mmol/L (135-145) 09/27/18 02:40 Potassium 4.5 mmol/L (3.5-5.0) 09/27/18 02:40 Chloride 112 mmol/L (101-111) H 09/27/18 02:40 Carbon Dioxide 22 mmol/L (22-32) 09/27/18 02:40 Anion Gap 5 mmol/L (2-11) 09/27/18 02:40 BUN 38 mg/dL (6-24) H 09/27/18 02:40 Creatinine 1.42 mg/dL (0.67-1.17) H 09/27/18 02:40 Est GFR ( Amer) 64.4 (>60) 09/27/18 02:40 Est GFR (Non-Af Amer) 53.2 (>60) 09/27/18 02:40 BUN/Creatinine Ratio 26.8 (8-20) H 09/27/18 02:40 Glucose 101 mg/dL (70-100) H 09/27/18 02:40 Lactic Acid 2.6 mmol/L (0.5-2.0) H* 09/27/18 02:40 Calcium 7.3 mg/dL (8.6-10.3) L 09/27/18 02:40 Ionized Calcium 1.07 mmol/L (1.16-1.32) L 09/26/18 04:40 Phosphorus 3.8 mg/dL (2.5-5.0) 09/26/18 16:31 Magnesium 1.7 mg/dL (1.9-2.7) L 09/27/18 02:40 Total Bilirubin 0.60 mg/dL (0.2-1.0) 09/26/18 04:40 AST 72 U/L (13-39) H 09/26/18 04:40 ALT 79 U/L (7-52) H 09/26/18 04:40 Alkaline Phosphatase 37 U/L (34-104) 09/26/18 04:40 Troponin I 0.00 ng/mL (<0.04) 09/25/18 08:31 C-Reactive Protein 8.06 mg/L (<8.01) H 09/25/18 08:31 Total Protein 3.7 g/dL (6.4-8.9) L 09/26/18 04:40 Albumin 2.3 g/dL (3.2-5.2) L 09/26/18 04:40 Globulin 1.4 g/dL (2-4) L D 09/26/18 04:40 Albumin/Globulin Ratio 1.6 (1-3) 09/26/18 04:40 Lipase 86 U/L (11.0-82.0) H 09/25/18 08:31 Blood Type O Positive 09/25/18 23:00 Antibody Screen Negative 09/25/18 23:00 Crossmatch See Detail 09/25/18 23:00 Intake & Output 09/24/18 09/25/18 09/26/18 09/27/18 06:59 06:59 06:59 06:59 Intake Total 9204 8463 Output Total 3173 6390 Balance 6031 2073 Weight 300 lb 11.368 oz Intake: IV Fluids 7046 4947 LR 6046 4702 NS (0.9%) 45 NS 50ML, Cefazolin 2G 100 acetaminophen 100 IVPB 310 LR 160 NS (0.9%) 50 acetaminophen 100 Medicated IV 2158 3206 CC - Amiodarone 199 CC - Dexmedetomidine/ 80 Precedex CC - Dopamine 87 40 CC - Norepinephrine/ 1838 2697 Levophed CC - Propofol/Diprivan 103 CC - Vasopressin/ 50 93 Pitressin GEN - Magnesium 177 Output: NG Tube Drainage Amount 1500 1900 Wound Vac 1000 1500 Dennis 673 2990 Other: Date of Last Bowel 09/24/18 09/24/18 Movement Temp Pulse Resp BP Pulse Ox 100.9 F 141 20 113/72 93 09/27/18 06:00 09/27/18 06:00 09/27/18 06:00 09/27/18 05:45 09/27/18 06:00 abdomen soft, wound vac in place Assessment: []stable, improving, less pressor support labs improved Plan: []cont supportive care ? closure abdomen on saturday
[2018-09-27] MEDS: fentaNYL* 50 MCG/ML 2 ML VIAL (100 MCG VIAL) IV SLOW PU PRN ×2 (07:57→20:46)
[2018-09-27] MEDS: Pantoprazole* 80 mg IN NS 80 MG/250 ML BAG IV SCH ×2 (09:21→19:51)
[2018-09-27] MEDS: Amiodarone 360 MG IVPREMIX* 360 MG/200 ML BAG IV SCH ×2 (09:22→21:16)
[2018-09-27] MEDS ORDERED: fentaNYL* 50 MCG/ML 2 ML VIAL (100 MCG VIAL) ONE (11:05)
[2018-09-27] MEDS: Piperacillin/Tazobac ADVAN(*) 3.375 GM in NS 0.9% 100 ML* 100 ML IVPB SCH ×2 (12:01→18:34)
[2018-09-27] MEDS: fentaNYL INFUSION 50 MCG/ML* 2,500 MCG/50 ML BAG IV SCH (14:20)
--- NOTE | 2018-09-27 15:57 | PN ---
Date of Service: 06/27/18 Critical Care Services: Marked improvement in hemodynamic status since AFib spontaneously converted - no longer on pressors. Pain control with fentanyl. Vital Signs: Temp Pulse Resp BP SpO2 FiO2 90 22 113/61 97 24 Physical Exam: Gen:Aake and appropriate. Continues on ventilator Lungs:Clear Abdomen: Not distended. WoundVac in place on anterior abdomen Extremities:Cool but no cyanosis or edema. Fluid Balance (Past 24 Hours): I= O= Net Intake & Output 09/25/18 09/26/18 09/27/18 09/28/18 06:59 06:59 06:59 06:59 Intake Total 9204 8463 3673 Output Total 3173 6390 1497 Balance 6031 2073 2176 Weight 300 lb 11.368 oz Intake: IV Fluids 7046 4947 1210 LR 6046 4702 1160 NS (0.9%) 45 50 NS 50ML, Cefazolin 2G 100 acetaminophen 100 IVPB 310 100 ABX - PIPERACILLIN 100 LR 160 NS (0.9%) 50 acetaminophen 100 Medicated IV 2158 3206 2363 CC - Amiodarone 199 130 CC - Dexmedetomidine/ 80 Precedex CC - Dopamine 87 40 CC - Norepinephrine/ 1838 2697 1662 Levophed CC - Propofol/Diprivan 103 CC - Vasopressin/ 50 93 Pitressin GEN - Magnesium 177 GEN - Pantoprazole/ 571 Protonix Output: NG Tube Drainage Amount 1500 1900 Wound Vac 1000 1500 450 Dennis 673 2990 1047 Other: Date of Last Bowel 09/24/18 09/24/18 Movement Labs: Laboratory Results - last 24 hr 09/26/18 09/26/18 09/26/18 16:31 16:31 16:31 WBC RBC Hgb Hct MCV MCH MCHC RDW Plt Count MPV Neut % (Auto) Lymph % (Auto) [place] % (Auto) Eos % (Auto) Baso % (Auto) Absolute Neuts (auto) Absolute Lymphs (auto) Absolute Monos (auto) Absolute Eos (auto) Absolute Basos (auto) Absolute Nucleated RBC Nucleated RBC % INR (Anticoag Therapy) 2.13 H APTT 43.7 H Sodium 140 Potassium 5.4 H 5.4 H Chloride 113 H Carbon Dioxide 20 L Anion Gap 7 BUN 38 H Creatinine 1.78 H Est GFR ( Amer) 49.6 Est GFR (Non-Af Amer) 41.0 BUN/Creatinine Ratio 21.3 H Glucose 113 H Lactic Acid Calcium 7.4 L Phosphorus 3.8 Magnesium 1.5 L 09/26/18 09/26/18 09/27/18 16:31 16:31 02:40 WBC 17.4 H RBC 3.69 L Hgb 11.5 L Hct 34 L MCV 91 MCH 31 MCHC 34 RDW 14 Plt Count 156 MPV 9.5 Neut % (Auto) 84.5 Lymph % (Auto) 6.8 [place] % (Auto) 8.6 Eos % (Auto) 0.0 Baso % (Auto) 0.1 Absolute Neuts (auto) 14.7 H Absolute Lymphs (auto) 1.2 Absolute Monos (auto) 1.5 H Absolute Eos (auto) 0.0 Absolute Basos (auto) 0.0 Absolute Nucleated RBC 0.0 Nucleated RBC % 0.1 INR (Anticoag Therapy) APTT Sodium 139 Potassium 4.5 Chloride 112 H Carbon Dioxide 22 Anion Gap 5 BUN 38 H Creatinine 1.42 H Est GFR ( Amer) 64.4 Est GFR (Non-Af Amer) 53.2 BUN/Creatinine Ratio 26.8 H Glucose 101 H Lactic Acid 4.3 H* Calcium 7.3 L Phosphorus Magnesium 1.7 L 09/27/18 09/27/18 09/27/18 02:40 02:40 06:20 WBC 10.5 RBC 3.83 L Hgb 11.5 L Hct 34 L MCV 90 MCH 30 MCHC 34 RDW 14 Plt Count 146 L MPV 9.6 Neut % (Auto) Lymph % (Auto) [place] % (Auto) Eos % (Auto) Baso % (Auto) Absolute Neuts (auto) Absolute Lymphs (auto) Absolute Monos (auto) Absolute Eos (auto) Absolute Basos (auto) Absolute Nucleated RBC Nucleated RBC % INR (Anticoag Therapy) APTT Sodium Potassium Chloride Carbon Dioxide Anion Gap BUN Creatinine Est GFR ( Amer) Est GFR (Non-Af Amer) BUN/Creatinine Ratio Glucose Lactic Acid 2.6 H* 2.9 H* Calcium Phosphorus Magnesium 09/27/18 06:20 WBC RBC Hgb Hct MCV MCH MCHC RDW Plt Count MPV Neut % (Auto) Lymph % (Auto) [place] % (Auto) Eos % (Auto) Baso % (Auto) Absolute Neuts (auto) Absolute Lymphs (auto) Absolute Monos (auto) Absolute Eos (auto) Absolute Basos (auto) Absolute Nucleated RBC Nucleated RBC % INR (Anticoag Therapy) APTT Sodium Potassium Chloride Carbon Dioxide Anion Gap BUN Creatinine Est GFR ( Amer) Est GFR (Non-Af Amer) BUN/Creatinine Ratio Glucose Lactic Acid Calcium Phosphorus Magnesium 3.0 H Impression: Doing much better hemodynamically. No problem with AFib today on amiodarone drip. Urine output is now satisfactory, and there is no evidence of postop sepsis. Plan: Cut back on IV fluids (Is 10 liters positive past 3 days). Keep intubated until final OR visit on Saturday. Consider starting TPN tomorrow. Critical Care Time: 40 minutes
[2018-09-27 16:47] LABS: Hematocrit 32 % (42-52); Hemoglobin 10.8 g/dL (14.0-18.0); Mean Corpuscular HGB Conc 34 g/dL (31-36); Mean Corpuscular Hemoglobin 31 pg (27-31); Mean Corpuscular Volume 89 fL (80-94); Mean Platelet Volume 9.2 fL (7.4-10.4); Platelet Count 126 10^3/uL (150-450); Red Blood Count 3.54 10^6 /uL (4.18-5.48); Red Cell Distribution Width 14 % (10-15); White Blood Count 10.9 10^3/uL (3.5-10.8)
[2018-09-27 17:03] LABS: BUN/Creatinine Ratio 31.5 (8-20); Calcium 7.4 mg/dL (8.6-10.3); EGFR African American 71.3 (>60); EGFR Non-African American 58.9 (>60)
[2018-09-27] MEDS ORDERED: Digoxin IV* 0.5 MG/2 ML AMP (0.25 MG/ML) IV SLOW PU ONE ×2 (17:14→20:48)
[2018-09-27] MEDS: Pantoprazole IV* 40 MG IV SCH (19:31)
[2018-09-27] MEDS: Vasopressin* 100 UNITS in D5W 250 ML BAG* 245 ML IV SCH (21:17)
[2018-09-27] MEDS ORDERED: Acetaminophen IV 1GM/100ML * 100 ML IVPB ONE (21:34)
[2018-09-27] MEDS ORDERED: Midazolam IV for DRIP* 100 MG in NS 0.9% 100 ML* 80 ML IV SCH (22:00)
[2018-09-28] MEDS: Lactated Ringers 1000 ML Bag* 1,000 ML IV SCH ×4 (00:17→19:57)
[2018-09-28] MEDS: Piperacillin/Tazobac ADVAN(*) 3.375 GM in NS 0.9% 100 ML* 100 ML IVPB SCH ×3 (02:25→18:29)
[2018-09-28] MEDS: Norepinephrine VIAL* 8 MG in NS 0.9% 500 ML* 492 ML IV SCH (02:29)
[2018-09-28] MEDS: fentaNYL INFUSION 50 MCG/ML* 2,500 MCG/50 ML BAG IV SCH ×2 (03:03→22:18)
[2018-09-28] MEDS: Chlorhexidine MOUTHWASH 0.12%* 15 ML UDC TOPICAL SCH ×6 (03:54→23:58)
[2018-09-28] MEDS ORDERED: Norepinephrine VIAL* 8 MG in NS 0.9% 500 ML* 492 ML IV SCH (04:00)
[2018-09-28] MEDS: fentaNYL* 50 MCG/ML 2 ML VIAL (100 MCG VIAL) IV SLOW PU PRN (04:14)
[2018-09-28] MEDS: Pantoprazole* 80 mg IN NS 80 MG/250 ML BAG IV SCH ×2 (04:25→05:59)
[2018-09-28 05:46] LABS: Hematocrit 31 % (42-52); Hemoglobin 10.3 g/dL (14.0-18.0); Mean Corpuscular HGB Conc 33 g/dL (31-36); Mean Corpuscular Hemoglobin 30 pg (27-31); Mean Corpuscular Volume 89 fL (80-94); Mean Platelet Volume 9.2 fL (7.4-10.4); Platelet Count 121 10^3/uL (150-450); Red Blood Count 3.44 10^6 /uL (4.18-5.48); Red Cell Distribution Width 14 % (10-15)
[2018-09-28 05:55] LABS: BUN/Creatinine Ratio 38.1 (8-20); Calcium 7.2 mg/dL (8.6-10.3); EGFR Non-African American 82.6 (>60); Potassium 3.7 mmol/L (3.5-5.0)
--- NOTE | 2018-09-28 08:25 | PN ---
Progress Note - Progress Note Date of Service: 09/28/18 Note: Intubated and sedated. Per RN and he is more comfortable. He has been off /on levophed related to afib. [id number]=[id number] Vital Signs Temp 99.3 F 09/28/18 06:18 Pulse 142 09/28/18 06:18 Resp 18 09/28/18 06:00 BP 86/68 09/28/18 06:18 Pulse Ox 100 09/28/18 06:18 Abd: intact VAC dressing on open abd with minimal drainage. Intake & Output 09/27/18 09/28/18 09/28/18 18:59 06:59 18:59 Intake Total 3673 4850.2 Output Total 2557 2920 Balance 1116 1930.2 Weight 330 lb 11.094 oz Intake: IV Fluids 1210 3223 LR 1160 3170 NS (0.9%) 50 53 IVPB 100 413 ABX - PIPERACILLIN 100 313 acetaminophen 100 Medicated IV 2363 1190.2 CC - Amiodarone 130 299 CC - Norepinephrine/ 1662 396 Levophed CC - Vasopressin/ 52.2 Pitressin GEN - Pantoprazole/ 571 443 Protonix IV Narcotic Infusion 24 Fentanyl 24 Output: NG Tube Drainage Amount 450 1050 Wound Vac 775 475 Dennis 1332 1275 Straight Cath 120 IMP:Improving s/p reduction of SB volvulus with second look laparotomy and open abdomen. Giant PEH. Afib. Obesity. Plan: Cardiology consult. Cont vent. Appreciated CCM management. Return to OR planned for AM. D/W and Dr. Og.
--- NOTE | 2018-09-28 09:43 | PN ---
Progress Note - Progress Note Date of Service: 09/28/18 Note: Continues to have a tachycardia at 140 bpm that appears to be Aflutter/fib - is on amiodarone drip and has been given 2 doses of digitalis (being cognizant of the interaction between dig and amiodarone). Has not responded to beta-blockers and is on vasopressors (levophed, vasopressin), so diltiazem is not an optimal choice. I will ask cardiology service for their input.
[2018-09-28] MEDS: Amiodarone 360 MG IVPREMIX* 360 MG/200 ML BAG IV SCH ×2 (09:56→21:45)
--- NOTE | 2018-09-28 13:54 | PN ---
Date of Service: 09/28/18 Critical Care Services: Intermittent problems with AFIB, which has been refractory to Rx with beta blockers and amiodarone. Given 2 doses of digitalis yesterday, but none today ( because of the dig-amiodarone interaction). rate is currently controlled at 80- 90 bpm on amiodarone infusion at 0.5 mg/hr. Pain control achieved with fentanyl. Vital Signs: Temp Pulse Resp BP SpO2 FiO2 99.7 F 141 16 97/68 97 50 09/28/18 11:45 09/28/18 11:45 09/28/18 10:00 09/28/18 11:45 09/28/18 11:45 09/28 08:00 NOTE: BP maintained with vasopressin. Physical Exam: Gen:Somnolent but arousable, and appropriate when aroused. HEENT: Orotracheal and orogastric tubes in place. Lungs: Clear Cardiac: Irreg rhythm Abdomen: Not distended. WoundVac in place. Extremities: Cool. No cyanosis or edema. Fluid Balance (Past 24 Hours): 09/26/18 09/27/18 09/28/18 06:59 06:59 06:59 Intake Total 9204 8463 8523.2 Output Total 3173 6390 5477 Balance 6031 2073 3046.2 Weight 300 lb 330 lb Intake: IV Fluids 7046 4947 4433 LR 6046 4702 4330 NS (0.9%) 45 103 NS 50ML, Cefazolin 2G 100 acetaminophen 100 IVPB 310 513 ABX - PIPERACILLIN 413 LR 160 NS (0.9%) 50 acetaminophen 100 100 Medicated IV 2158 3206 3553.2 CC - Amiodarone 199 429 CC - Dexmedetomidine/ 80 Precedex CC - Dopamine 87 40 CC - Norepinephrine/ 1838 2697 2058 Levophed CC - Propofol/Diprivan 103 CC - Vasopressin/ 50 93 52.2 Pitressin GEN - Magnesium 177 GEN - Pantoprazole/ 1014 Protonix IV Narcotic Infusion 24 Fentanyl 24 Output: NG Tube Drainage Amount 1500 1900 1500 Wound Vac 1000 1500 1250 Dennis 673 2990 2607 Straight Cath 120 Other: Date of Last Bowel 09/24/18 09/24/18 Movement Labs: Laboratory Results - last 24 hr 09/27/18 09/27/18 09/28/18 16:40 16:40 05:23 WBC 10.9 H RBC 3.54 L Hgb 10.8 L Hct 32 L MCV 89 MCH 31 MCHC 34 RDW 14 Plt Count 126 L MPV 9.2 Neut % (Auto) Lymph % (Auto) [place] % (Auto) Eos % (Auto) Baso % (Auto) Absolute Neuts (auto) Absolute Lymphs (auto) Absolute Monos (auto) Absolute Eos (auto) Absolute Basos (auto) Absolute Nucleated RBC Immature Gran % Neutrophils % Band Neutrophils % Lymphocytes % Monocytes % Nucleated RBC % Abs Neuts (Manual) Abs Lymphs (Manual) Abs Monocytes (Manual) Normal RBC Morphology Sodium 140 140 Potassium 4.0 3.7 Chloride 112 H 111 Carbon Dioxide 22 25 Anion Gap 6 4 BUN 41 H 37 H Creatinine 1.30 H 0.97 Est GFR ( Amer) 71.3 100.0 Est GFR (Non-Af Amer) 58.9 82.6 BUN/Creatinine Ratio 31.5 H 38.1 H Glucose 100 117 H Lactic Acid Calcium 7.4 L 7.2 L 09/28/18 09/28/18 05:23 05:23 WBC 11.0 H Hgb 10.3 L Hct 31 L MCV 89 Plt Count 121 L Immature Gran % 5.0 Neutrophils % 82.0 Band Neutrophils % 5.0 Lymphocytes % 6.0 Monocytes % 7.0 Nucleated RBC % Not Reportable Abs Neuts (Manual) 9.6 H Abs Lymphs (Manual) 0.7 L Abs Monocytes (Manual) 0.8 Normal RBC Morphology Normal Sodium Potassium Chloride Carbon Dioxide Anion Gap BUN Creatinine Est GFR ( Amer) Est GFR (Non-Af Amer) BUN/Creatinine Ratio Glucose Lactic Acid 1.9 Calcium Nutrition: None. Impression: 1. Markedly fluid-positive last 72 hrs. 2. Recurrent AFIB with hypotension - no circulatory shock (i.e., lactate normal) 3. No nutritional support (other than propofol) since admission. 4. No evidence for active sepsis. Plan: 1. Will use vasopressin instead of catecholamines for BP control (to reduce the risk of AFIB) 2. Continue IV amiodarone for rate control (can't give amidarone PO because of bowel surgery) 3. Cut back on IV fluids 4. Start TPN tomorrow Critical Care Time: 50 minutes
[2018-09-29] MEDS: Piperacillin/Tazobac ADVAN(*) 3.375 GM in NS 0.9% 100 ML* 100 ML IVPB SCH ×2 (02:36→09:48)
[2018-09-29] MEDS: fentaNYL* 50 MCG/ML 2 ML VIAL (100 MCG VIAL) IV SLOW PU PRN (02:36)
[2018-09-29] MEDS: Chlorhexidine MOUTHWASH 0.12%* 15 ML UDC TOPICAL SCH ×3 (03:56→11:03)
[2018-09-29] MEDS: Lactated Ringers 1000 ML Bag* 1,000 ML IV SCH (04:00)
[2018-09-29 06:04] LABS: Hematocrit 29 % (42-52); Hemoglobin 9.8 g/dL (14.0-18.0); Mean Corpuscular HGB Conc 34 g/dL (31-36); Mean Corpuscular Hemoglobin 31 pg (27-31); Mean Corpuscular Volume 89 fL (80-94); Platelet Count 139 10^3/uL (150-450); Red Blood Count 3.21 10^6 /uL (4.18-5.48); Red Cell Distribution Width 14 % (10-15); White Blood Count 8.2 10^3/uL (3.5-10.8)
[2018-09-29 06:23] LABS: BUN/Creatinine Ratio 37.3 (8-20); Calcium 7.3 mg/dL (8.6-10.3); EGFR African American 134.5 (>60); EGFR Non-African American 111.2 (>60); Potassium 3.4 mmol/L (3.5-5.0)
[2018-09-29] MEDS: fentaNYL INFUSION 50 MCG/ML* 2,500 MCG/50 ML BAG IV SCH (07:29)
[2018-09-29 07:52] LABS: ABS Lymphocytes 0.6 10^3/ul (1.0-4.8); ABS Monocytes 0.8 10^3/ul (0-0.8); ABS Neutrophils 6.8 10^3/ul (1.5-7.7); Eosinophil % 0.1 %; Nucleated Red Blood Cells % 0.2
[2018-09-29] MEDS ORDERED: Pantoprazole IV* 40 MG IV SCH (09:00)
[2018-09-29] MEDS ORDERED: Rocuronium* 10 MG/ML VIAL ONE (09:42)
[2018-09-29] MEDS ORDERED: fentaNYL* 50 MCG/ML 5 ML VIAL (250 MCG VIAL) ONE (09:42)
[2018-09-29] MEDS ORDERED: Midazolam* 1 MG/ML 5 ML VIAL (5 MG) ONE (09:42)
[2018-09-29] MEDS ORDERED: Propofol* 10 MG/ML 20 ML BTL ONE (09:42)
[2018-09-29] MEDS ORDERED: Lidocaine 2% PF * 5 ML VIAL ONE (09:42)
[2018-09-29] MEDS ORDERED: Amiodarone 360 MG IVPREMIX* 360 MG/200 ML BAG IV SCH (10:00)
--- NOTE | 2018-09-29 10:46 | PN ---
Date of Service: 09/29/18 Critical Care Services: remains rate controlled on Amio gtt and hemodynamically stable. off pressors scheduled for wash-out in the AM remains intubated on low vent settings remains in negative fluid balance Vital Signs: Temp Pulse Resp BP SpO2 FiO2 99.3 F 86 16 122/69 92 40 09/29/18 09:00 09/29/18 10:30 09/29/18 10:00 09/29/18 10:08 09/29/18 10:30 09/29 08:01 Physical Exam: Gen:intubated. sedated. comfortable. Fluid Balance (Past 24 Hours): I= O= Net Intake & Output 09/27/18 09/28/18 09/29/18 09/30/18 06:59 06:59 06:59 06:59 Intake Total 8463 8523.2 3793 751 Output Total 6390 5477 4823 1420 Balance 2073 3046.2 -1030 -669 Weight 330 lb 11.094 oz 337 lb 4.916 oz Intake: IV Fluids 4947 4433 1819 617 ABX - PIPERACILLIN 25 LR 4702 4330 1772 592 NS (0.9%) 45 103 47 NS 50ML, Cefazolin 2G 100 acetaminophen 100 IVPB 362 941 6364 56 ABX - PIPERACILLIN 413 318 56 LR 160 950 NS (0.9%) 50 42 acetaminophen 100 100 Medicated IV 3206 3553.2 664 78 CC - Amiodarone 199 429 391 78 CC - Dopamine 40 CC - Norepinephrine/ 2697 2058 Levophed CC - Vasopressin/ 93 52.2 44 Pitressin GEN - Magnesium 177 GEN - Pantoprazole/ 1014 229 Protonix IV Narcotic Infusion 24 Fentanyl 24 Output: NG Tube Drainage Amount 1900 1500 1550 1150 Wound Vac 1500 1250 475 Dennis 2990 2607 2798 270 Straight Cath 120 Other: Date of Last Bowel 09/24/18 09/29/18 Movement # Bowel Movements 1 Estimated Stool Amount Medium Labs: Laboratory Results - last 24 hr 09/29/18 09/29/18 09/29/18 05:51 05:51 05:51 WBC 8.2 RBC 3.21 L Hgb 9.8 L Hct 29 L MCV 89 MCH 31 MCHC 34 RDW 14 Plt Count 139 L MPV 9.0 Neut % (Auto) 83.1 Lymph % (Auto) 7.0 [place] % (Auto) 9.7 Eos % (Auto) 0.1 Baso % (Auto) 0.1 Absolute Neuts (auto) 6.8 Absolute Lymphs (auto) 0.6 L Absolute Monos (auto) 0.8 Absolute Eos (auto) 0.0 Absolute Basos (auto) 0.0 Absolute Nucleated RBC 0.0 Nucleated RBC % 0.2 Sodium 143 Potassium 3.4 L Chloride 111 Carbon Dioxide 29 Anion Gap 3 BUN 28 H Creatinine 0.75 Est GFR ( Amer) 134.5 Est GFR (Non-Af Amer) 111.2 BUN/Creatinine Ratio 37.3 H Glucose 99 Lactic Acid 1.3 Calcium 7.3 L Impression: ARF on MV Incarcerated hernia МАРИЯ rate controlled hypokalemia Plan: scheduled for OR today for wash-out continue mechanical vent support seeing patient may be transferred out to [facility] replenish K continue Amio gtt for AF Feeds as per Surgery team continue to keep negative fluid balance Had long d/w at bedside concerning patient's condition. Critical Care Time: 56 minutes
[2018-09-29] MEDS: Vasopressin* 100 UNITS in D5W 250 ML BAG* 245 ML IV SCH (11:23)
--- NOTE | 2018-09-29 12:39 | PN ---
Progress Note - Progress Note Date of Service: 09/29/18 SOAP: Subjective: []intubated, sedated Objective: [] Temp Pulse Resp BP Pulse Ox 99.3 F 87 17 129/84 95 09/29/18 09:00 09/29/18 11:15 09/29/18 11:00 09/29/18 11:01 09/29/18 11:15 Intake & Output 09/27/18 09/28/18 09/29/18 09/30/18 06:59 06:59 06:59 06:59 Intake Total 8463 8523.2 3793 751 Output Total 6390 5477 4823 1540 Balance 2073 3046.2 -1030 -789 Weight 330 lb 11.094 oz 337 lb 4.916 oz Intake: IV Fluids 4947 4433 1819 617 ABX - PIPERACILLIN 25 LR 4702 4330 1772 592 NS (0.9%) 45 103 47 NS 50ML, Cefazolin 2G 100 acetaminophen 100 IVPB 705 436 6172 56 ABX - PIPERACILLIN 413 318 56 LR 160 950 NS (0.9%) 50 42 acetaminophen 100 100 Medicated IV 3206 3553.2 664 78 CC - Amiodarone 199 429 391 78 CC - Dopamine 40 CC - Norepinephrine/ 2697 2058 Levophed CC - Vasopressin/ 93 52.2 44 Pitressin GEN - Magnesium 177 GEN - Pantoprazole/ 1014 229 Protonix IV Narcotic Infusion 24 Fentanyl 24 Output: NG Tube Drainage Amount 1900 1500 1550 1150 Wound Vac 1500 1250 475 Dennis 2990 2607 2798 390 Straight Cath 120 Other: Date of Last Bowel 09/24/18 09/29/18 Movement # Bowel Movements 1 Estimated Stool Amount Medium Laboratory Last Values WBC 8.2 10^3/uL (3.5-10.8) 09/29/18 05:51 RBC 3.21 10^6 /uL (4.18-5.48) L 09/29/18 05:51 Hgb 9.8 g/dL (14.0-18.0) L 09/29/18 05:51 Hct 29 % (42-52) L 09/29/18 05:51 MCV 89 fL (80-94) 09/29/18 05:51 MCH 31 pg (27-31) 09/29/18 05:51 MCHC 34 g/dL (31-36) 09/29/18 05:51 RDW 14 % (10-15) 09/29/18 05:51 Plt Count 139 10^3/uL (150-450) L 09/29/18 05:51 MPV 9.0 fL (7.4-10.4) 09/29/18 05:51 Neut % (Auto) 83.1 % 09/29/18 05:51 Lymph % (Auto) 7.0 % 09/29/18 05:51 [place] % (Auto) 9.7 % 09/29/18 05:51 Eos % (Auto) 0.1 % 09/29/18 05:51 Baso % (Auto) 0.1 % 09/29/18 05:51 Absolute Neuts (auto) 6.8 10^3/ul (1.5-7.7) 09/29/18 05:51 Absolute Lymphs (auto) 0.6 10^3/ul (1.0-4.8) L 09/29/18 05:51 Absolute Monos (auto) 0.8 10^3/ul (0-0.8) 09/29/18 05:51 Absolute Eos (auto) 0.0 10^3/ul (0-0.6) 09/29/18 05:51 Absolute Basos (auto) 0.0 10^3/ul (0-0.2) 09/29/18 05:51 Absolute Nucleated RBC 0.0 10^3/ul 09/29/18 05:51 Immature Gran % 5.0 % (0-9) 09/28/18 05:23 Neutrophils % 82.0 % 09/28/18 05:23 Band Neutrophils % 5.0 % (0-8) 09/28/18 05:23 Lymphocytes % 6.0 % 09/28/18 05:23 Reactive Lymphs % 1.0 % (0-6) 09/25/18 20:00 Monocytes % 7.0 % 09/28/18 05:23 Myelocytes % 2.0 % (0-1) H 09/25/18 20:00 Nucleated RBC % 0.2 09/29/18 05:51 Abs Neuts (Manual) 9.6 10^3/ul (1.5-7.7) H 09/28/18 05:23 Abs Lymphs (Manual) 0.7 10^3/ul (1.0-4.8) L 09/28/18 05:23 Abs Monocytes (Manual) 0.8 10^3/ul (0-0.8) 09/28/18 05:23 Normal RBC Morphology Normal (Normal) 09/28/18 05:23 INR (Anticoag Therapy) 2.13 (0.82-1.09) H 09/26/18 16:31 APTT 43.7 seconds (26.0-38.0) H 09/26/18 16:31 ABG pH 7.12 (7.35-7.45) L* 09/25/18 14:51 ABG pCO2 50 mmHg (35-45) H 09/25/18 14:51 ABG pO2 399 mmHg (80-100) H 09/25/18 14:51 ABG HCO3 14.8 mmol/L (19-31) L 09/25/18 14:51 ABG O2 Saturation 100.0 % (94.0-98.0) H 09/25/18 14:51 ABG Base Excess -13.0 mmol/L (-2.0-2.0) L 09/25/18 14:51 Sodium 143 mmol/L (135-145) 09/29/18 05:51 Potassium 3.4 mmol/L (3.5-5.0) L 09/29/18 05:51 Chloride 111 mmol/L (101-111) 09/29/18 05:51 Carbon Dioxide 29 mmol/L (22-32) 09/29/18 05:51 Anion Gap 3 mmol/L (2-11) 09/29/18 05:51 BUN 28 mg/dL (6-24) H 09/29/18 05:51 Creatinine 0.75 mg/dL (0.67-1.17) 09/29/18 05:51 Est GFR ( Amer) 134.5 (>60) 09/29/18 05:51 Est GFR (Non-Af Amer) 111.2 (>60) 09/29/18 05:51 BUN/Creatinine Ratio 37.3 (8-20) H 09/29/18 05:51 Glucose 99 mg/dL (70-100) 09/29/18 05:51 Lactic Acid 1.3 mmol/L (0.5-2.0) 09/29/18 05:51 Calcium 7.3 mg/dL (8.6-10.3) L 09/29/18 05:51 Ionized Calcium 1.07 mmol/L (1.16-1.32) L 09/26/18 04:40 Phosphorus 3.8 mg/dL (2.5-5.0) 09/26/18 16:31 Magnesium 3.0 mg/dL (1.9-2.7) H 09/27/18 06:20 Total Bilirubin 0.60 mg/dL (0.2-1.0) 09/26/18 04:40 AST 72 U/L (13-39) H 09/26/18 04:40 ALT 79 U/L (7-52) H 09/26/18 04:40 Alkaline Phosphatase 37 U/L (34-104) 09/26/18 04:40 Troponin I 0.00 ng/mL (<0.04) 09/25/18 08:31 C-Reactive Protein 8.06 mg/L (<8.01) H 09/25/18 08:31 Total Protein 3.7 g/dL (6.4-8.9) L 09/26/18 04:40 Albumin 2.3 g/dL (3.2-5.2) L 09/26/18 04:40 Globulin 1.4 g/dL (2-4) L D 09/26/18 04:40 Albumin/Globulin Ratio 1.6 (1-3) 09/26/18 04:40 Lipase 86 U/L (11.0-82.0) H 09/25/18 08:31 Blood Type O Positive 09/25/18 23:00 Antibody Screen Negative 09/25/18 23:00 Crossmatch See Detail 09/25/18 23:00 wound vac/dressing in place Assessment: []s/p reduction of incarcerated, strangulating hiatal hernia contents, now hemodynamically stable-off pressors, on vent. I spoke to Dr Robins, his primary surgeon who accepted the patient in transfer (for Dr Billingsley)for definitive treatment/repair. Plan: []transfer to [place] under the care of Dr Billingsley
[2018-09-29 14:01] VITALS: BP 127/65
== END 2018-09-29 13:40 | disposition short-term general hospital (02) | DRG 220 ==
LOC: ED 08:07 → OR 08:07 → ED 13:30 → OR 14:55 → ICU 16:02
PROVIDERS: ADMIT Surgery; ATTEND Surgery
PROC: 0DS80ZZ Reposition Small Intestine, Open Approach (ICD-10-PCS; 2018-09-25)
PROC: 0DTU0ZZ Resection of Omentum, Open Approach (ICD-10-PCS; 2018-09-25)
PROC: 0DN80ZZ Release Small Intestine, Open Approach (ICD-10-PCS; 2018-09-25)
PROC: 05H633Z Insertion of Infusion Device into Left Subclavian Vein, Percutaneous Approach (ICD-10-PCS; 2018-09-25)
PROC: 3E033XZ Introduction of Vasopressor into Peripheral Vein, Percutaneous Approach (ICD-10-PCS; 2018-09-25)
PROC: 0BH17EZ Insertion of Endotracheal Airway into Trachea, Via Natural or Artificial Opening (ICD-10-PCS; 2018-09-25)
PROC: 5A1945Z Respiratory Ventilation, 24-96 Consecutive Hours (ICD-10-PCS; 2018-09-25)
PROC: 0BQT0ZZ Repair Diaphragm, Open Approach (ICD-10-PCS; principal; 2018-09-25 13:30)
PROC: 0W9G00Z Drainage of Peritoneal Cavity with Drainage Device, Open Approach (ICD-10-PCS; 2018-09-26)
PROC: 30233N1 Transfusion of Nonautologous Red Blood Cells into Peripheral Vein, Percutaneous Approach (ICD-10-PCS; 2018-09-26)
DX: K56.2 Volvulus (principal); K55.019 Acute (reversible) ischemia of small intestine, extent unspecified; K44.0 Diaphragmatic hernia with obstruction, without gangrene; Z68.41 Body mass index [BMI] 40.0-44.9, adult; N17.9 Acute kidney failure, unspecified; I48.92 Unspecified atrial flutter; R57.9 Shock, unspecified; K56.50 Intestinal adhesions [bands], unspecified as to partial versus complete obstruction; I48.91 Unspecified atrial fibrillation; J45.909 Unspecified asthma, uncomplicated; F17.210 Nicotine dependence, cigarettes, uncomplicated; M41.9 Scoliosis, unspecified; I45.10 Unspecified right bundle-branch block; G89.29 Other chronic pain; M54.5 Low back pain; Z82.49 Family history of ischemic heart disease and other diseases of the circulatory system; E87.6 Hypokalemia
CPT/HCPCS: 36415; 71045; 74177; 80048; 80053; 82330; 82803; 83605; 83690; 83735; 84100; 84484; 85014; 85018; 85025; 85027; 85610; 85730; 86140; 86850; 86900; 86901; 86922; 87641; 88305; 93005; 93308; 94002; 94003; 99285; A9270-GY; C1776; C8924; J0171; J0282; J0330; J0610; J0690; J1160; J1265; J2250; J2270; J2405; J2543; J2704; J3010; J3475; J3490; P9040; P9045; P9047; Q9967

== ENCOUNTER 2020-01-07 21:20 | Observation (INO) ==
[2020-01-07 22:27] LABS: ABS Lymphocytes 0.8 10^3/ul (1.0-4.8); ABS Monocytes 0.6 10^3/ul (0-0.8); ABS Neutrophils 4.7 10^3/ul (1.5-7.7); Eosinophil % 0.8 %; Hematocrit 28 % (42-52); Hemoglobin 8.3 g/dL (14.0-18.0); Mean Corpuscular HGB Conc 30 g/dL (31-36); Mean Corpuscular Hemoglobin 21 pg (27-31); Mean Corpuscular Volume 70 fL (80-94); Mean Platelet Volume 8.6 fL (7.4-10.4); Nucleated Red Blood Cells % 0.1; Platelet Count 216 10^3/uL (150-450); Red Blood Count 3.97 10^6 /uL (4.18-5.48); Red Cell Distribution Width 21 % (10-15); White Blood Count 6.1 10^3/uL (3.5-10.8)
[2020-01-07 22:30] LABS: INR 1.25 (0.82-1.09)
[2020-01-07 22:48] LABS: Albumin 3.1 g/dL (3.2-5.2); Albumin/Globulin Ratio 0.8 (1-3); BUN/Creatinine Ratio 5.9 (8-20); Calcium 8.2 mg/dL (8.6-10.3); EGFR African American 67.1 (>60); EGFR Non-African American 55.5 (>60); Globulin 3.8 g/dL (2-4); Total Bilirubin 0.4 mg/dL (0.2-1.0); Total Protein 6.9 g/dL (6.4-8.9)
[2020-01-07] MEDS ORDERED: levETIRAcetam 1000MG IVPREMIX 1,000 MG/100 ML BAG IVPB ONE (22:53)
[2020-01-07] MEDS ORDERED: Lorazepam PYXIS KEY PRN (22:54)
[2020-01-07] MEDS ORDERED: LORazepam 2 mg VIAL 1 ml IV PUSH ONE (22:54)
[2020-01-07] MEDS ORDERED: Lorazepam PYXIS KEY ONE (22:59)
[2020-01-08] MEDS ORDERED: Ondansetron 4 mg VIAL 2 MG/ML 2 ml VIAL IV PRN (02:16)
[2020-01-08] MEDS ORDERED: Potassium Chlor 20 meq TAB.ER PO ONE ×3 (02:33→16:28)
[2020-01-08 03:10] LABS: Magnesium 1.1 mg/dL (1.9-2.7)
[2020-01-08 07:11] LABS: Anion Gap 7 mmol/L (2-11); BUN/Creatinine Ratio 7.1 (8-20); Blood Urea Nitrogen 8 mg/dL (6-24); CO2 Carbon Dioxide 31 mmol/L (22-32); Calcium 7.8 mg/dL (8.6-10.3); Chloride 105 mmol/L (101-111); Cholesterol 88 mg/dL; EGFR Non-African American 69.4 (>60); Glucose 86 mg/dL (70-100); HDL Cholesterol 22.2 mg/dL; LDL Cholesterol 37 mg/dL; Potassium 3.1 mmol/L (3.5-5.0); Sodium 143 mmol/L (135-145); Triglycerides 144 mg/dL
[2020-01-08 07:12] LABS: % Iron Saturation 6 % (15-55); Digoxin < 0.3 ng/ml (0.8-2.0); Iron 21 ug/dL (50-212); Total Iron Binding Capacity 370 mcg/dL (250-450); Transferrin 264 mg/dL (203-362); Unsaturated Iron Binding < 355 ug/dL
[2020-01-08 07:15] LABS: ABS Eosinophils 0.1 10^3/ul (0-0.6); ABS Lymphocytes 1.2 10^3/ul (1.0-4.8); ABS Monocytes 0.6 10^3/ul (0-0.8); ABS Neutrophils 3.7 10^3/ul (1.5-7.7); Eosinophil % 1.3 %; Hematocrit 25 % (42-52); Hemoglobin 7.5 g/dL (14.0-18.0); Lymphocyte % 21.4 %; Mean Corpuscular HGB Conc 30 g/dL (31-36); Mean Corpuscular Hemoglobin 22 pg (27-31); Mean Corpuscular Volume 71 fL (80-94); Mean Platelet Volume 8.9 fL (7.4-10.4); Platelet Count 158 10^3/uL (150-450); Red Blood Count 3.49 10^6 /uL (4.18-5.48); Red Cell Distribution Width 21 % (10-15); White Blood Count 5.6 10^3/uL (3.5-10.8)
[2020-01-08 07:24] LABS: TSH Ultra Thyroid Stim Horm 0.34 mcIU/mL (0.34-5.60)
[2020-01-08 07:30] LABS: Ferritin 6.8 ng/mL (24-336)
[2020-01-08] MEDS ORDERED: Magnesium Sulf 4 GM/100 ML IV 4,000 MG/100 ML BAG IVPB ONE (08:00)
[2020-01-08] MEDS: Colesevelam 625 mg TAB (NF) PO SCH ×2 (09:24→16:29)
[2020-01-08] MEDS: Potassium Chlor 20 meq TAB.ER PO SCH (09:40)
[2020-01-08] MEDS: Iron Sucrose 200 MG in NS 0.9% 100 ml BAG 100 ML IVPB SCH (10:38)
[2020-01-08] MEDS ORDERED: Perflutren Lipid Microsphere 3 ML VIAL ONE ×2 (10:47→13:20)
[2020-01-08 16:10] LABS: BUN/Creatinine Ratio 8.4 (8-20); Calcium 8.4 mg/dL (8.6-10.3); EGFR African American 88.5 (>60); EGFR Non-African American 73.2 (>60); Magnesium 2.2 mg/dL (1.9-2.7); Potassium 3.4 mmol/L (3.5-5.0)
[2020-01-09 06:43] LABS: Hematocrit 26 % (42-52); Hemoglobin 7.6 g/dL (14.0-18.0); Mean Corpuscular HGB Conc 30 g/dL (31-36); Mean Corpuscular Hemoglobin 21 pg (27-31); Mean Corpuscular Volume 72 fL (80-94); Mean Platelet Volume 8.5 fL (7.4-10.4); Platelet Count 172 10^3/uL (150-450); Red Blood Count 3.59 10^6 /uL (4.18-5.48); Red Cell Distribution Width 21 % (10-15); White Blood Count 4.9 10^3/uL (3.5-10.8)
[2020-01-09 07:05] LABS: BUN/Creatinine Ratio 8.7 (8-20); Calcium 8.1 mg/dL (8.6-10.3); EGFR African American 92.5 (>60); EGFR Non-African American 76.4 (>60); Magnesium 1.8 mg/dL (1.9-2.7); Potassium 3.5 mmol/L (3.5-5.0)
[2020-01-09] MEDS ORDERED: Potassium Chlor 20 meq TAB.ER PO ONE (07:32)
[2020-01-09] MEDS ORDERED: Magnesium Sulfate IV 1GM/100ML 1 GM/100 ML BAG IV ONE (07:33)
[2020-01-09] MEDS: Potassium Chlor 20 meq TAB.ER PO SCH (08:22)
[2020-01-09] MEDS: Colesevelam 625 mg TAB (NF) PO SCH (08:22)
[2020-01-09] MEDS: Iron Sucrose 200 MG in NS 0.9% 100 ml BAG 100 ML IVPB SCH (10:35)
[2020-01-09 12:10] VITALS: BP 129/57
== END 2020-01-09 15:15 | disposition home or self-care (01) ==
LOC: MEDTELE 21:20 → ED 21:20 → MEDTELE 01-08 03:20
PROVIDERS: ADMIT Internal Medicine; ATTEND Internal Medicine

== ENCOUNTER 2020-01-22 19:27 | Inpatient (IN) ==
[2020-01-22] MEDS ORDERED: NS 0.9% 1000 ml BAG 1,000 ML IV ONE (19:50)
[2020-01-22] MEDS ORDERED: Ondansetron 4 mg VIAL 2 MG/ML 2 ml VIAL IV ONE ×2 (19:50→21:59)
[2020-01-22] MEDS ORDERED: Pantoprazole VIAL 40 MG VIAL IV ONE (19:50)
[2020-01-22] MEDS ORDERED: Morphine 4 MG/ML VIAL (1 ml) IV ONE ×3 (20:06→23:49)
[2020-01-22 20:57] LABS: INR 1.32 (0.82-1.09)
[2020-01-22 21:05] LABS: ABS Lymphocytes 0.5 10^3/ul (1.0-4.8); ABS Monocytes 0.7 10^3/ul (0-0.8); ABS Neutrophils 10.6 10^3/ul (1.5-7.7); Hematocrit 37 % (42-52); Hemoglobin 11.2 g/dL (14.0-18.0); Lymphocyte % 4.3 %; Mean Corpuscular HGB Conc 30 g/dL (31-36); Mean Corpuscular Hemoglobin 22 pg (27-31); Mean Corpuscular Volume 74 fL (80-94); Mean Platelet Volume 8.1 fL (7.4-10.4); Platelet Count 330 10^3/uL (150-450); Red Blood Count 5.04 10^6 /uL (4.18-5.48); Red Cell Distribution Width 25 % (10-15); White Blood Count 11.9 10^3/uL (3.5-10.8)
[2020-01-22 21:09] LABS: ALT 84 U/L (7-52); AST 118 U/L (13-39); Albumin 3.6 g/dL (3.2-5.2); Alkaline Phosphatase 146 U/L (34-104); Anion Gap 6 mmol/L (2-11); BUN/Creatinine Ratio 9.8 (8-20); Blood Urea Nitrogen 14 mg/dL (6-24); C Reactive Protein 2.02 mg/L (<8.01); CO2 Carbon Dioxide 28 mmol/L (22-32); Calcium 9.5 mg/dL (8.6-10.3); Chloride 106 mmol/L (101-111); EGFR African American 63.3 (>60); EGFR Non-African American 52.3 (>60); Globulin 3.7 g/dL (2-4); Glucose 129 mg/dL (70-100); Potassium 3.4 mmol/L (3.5-5.0); Sodium 140 mmol/L (135-145); Total Protein 7.3 g/dL (6.4-8.9)
[2020-01-22 21:25] LABS: Lipase 2620 U/L (11.0-82.0)
[2020-01-22] MEDS ORDERED: diPHENhydraMINE IV 50 MG/ML 1 ml VIAL (BENADRYL) IV ONE (22:06)
[2020-01-22] MEDS ORDERED: Iodixanol (CONTRAST) 320 MG/ML 100 ML SDV IV ONE (22:39)
[2020-01-23] MEDS: Prochlorperazine 5 mg/ml 2 ml VIAL (10 mg) IV PRN (00:09)
[2020-01-23] MEDS ORDERED: HYDROmorphone 1 MG/1 ML SYRINGE IV SCH (01:05)
[2020-01-23 01:19] LABS: Urine Appearance Cloudy; Urine Bilirubin Negative (Negative); Urine Blood Negative (Negative); Urine Color Yellow; Urine Glucose Negative (Negative); Urine Ketones Negative (Negative); Urine Nitrite Negative (Negative); Urine Protein 2+(100 mg/dL) (Negative); Urine Specific Gravity 1.053 (1.010-1.030); Urine Urobilinogen Negative (Negative)
[2020-01-23 01:44] LABS: Urine Bacteria Absent (Absent); Urine Red Blood Cell 3+(>10/hpf) (Absent); Urine White Blood Cell Trace(0-5/hpf) (Absent)
[2020-01-23] MEDS: HYDROmorphone 1 MG/1 ML SYRINGE IV PRN ×8 (01:48→20:13)
[2020-01-23 03:06] LABS: Magnesium 1.7 mg/dL (1.9-2.7)
[2020-01-23 03:09] LABS: Digoxin < 0.3 ng/ml (0.8-2.0)
[2020-01-23 03:12] LABS: Triglycerides 199 mg/dL
[2020-01-23 03:42] LABS: Erythrocyte Sed Rate 18 mm/Hr (0-19)
[2020-01-23] MEDS: Ondansetron 4 mg VIAL 2 MG/ML 2 ml VIAL IV PRN ×2 (04:05→20:40)
[2020-01-23] MEDS: NS 0.9% 1000 ml BAG 1,000 ML IV SCH ×3 (04:11→20:12)
[2020-01-23] MEDS ORDERED: Magnesium Sulfate 2 gm BAG 2 GM/50 ML BAG IVPB ONE (04:12)
[2020-01-23] MEDS: Cholestyramine Resin 4 GM POWDER PO SCH (11:44)
[2020-01-24] MEDS: HYDROmorphone 1 MG/1 ML SYRINGE IV PRN ×8 (00:37→23:24)
[2020-01-24] MEDS: NS 0.9% 1000 ml BAG 1,000 ML IV SCH (02:00)
[2020-01-24] MEDS ORDERED: Metoprolol Tartrate 5 mg VIAL 5 ml VIAL (1 mg/ml) IV ONE (02:16)
[2020-01-24] MEDS ORDERED: Metoprolol Tartrate 5 mg VIAL 5 ml VIAL (1 mg/ml) ONE (02:18)
[2020-01-24] MEDS: Ondansetron 4 mg VIAL 2 MG/ML 2 ml VIAL IV PRN ×2 (04:47→10:55)
[2020-01-24] MEDS: Prochlorperazine 5 mg/ml 2 ml VIAL (10 mg) IV PRN (05:58)
[2020-01-24 06:35] LABS: INR 1.7 (0.82-1.09)
[2020-01-24 06:41] LABS: BUN/Creatinine Ratio 14.8 (8-20); Calcium 9.1 mg/dL (8.6-10.3); EGFR African American 81.4 (>60); EGFR Non-African American 67.3 (>60); Indirect Bilirubin 0.5 mg/dL (0.3-1.0); Potassium 4.1 mmol/L (3.5-5.0); Total Bilirubin 0.7 mg/dL (0.2-1.0)
[2020-01-24 06:44] LABS: ABS Lymphocytes 0.5 10^3/ul (1.0-4.8); ABS Monocytes 1.6 10^3/ul (0-0.8); ABS Neutrophils 17.3 10^3/ul (1.5-7.7); Eosinophil % 0.1 %; Hematocrit 37 % (42-52); Hemoglobin 10.6 g/dL (14.0-18.0); Lymphocyte % 2.7 %; Mean Corpuscular HGB Conc 29 g/dL (31-36); Mean Corpuscular Hemoglobin 22 pg (27-31); Mean Corpuscular Volume 77 fL (80-94); Mean Platelet Volume 8.3 fL (7.4-10.4); Platelet Count 275 10^3/uL (150-450); Red Blood Count 4.78 10^6 /uL (4.18-5.48); Red Cell Distribution Width 25 % (10-15); White Blood Count 19.5 10^3/uL (3.5-10.8)
[2020-01-24] MEDS: Cholestyramine Resin 4 GM POWDER PO SCH (09:44)
[2020-01-24] MEDS ORDERED: Naloxone Nasal Spray 4 MG/0.1 ML NASAL.SPR INTRANASAL PRN (15:35)
[2020-01-25] MEDS: HYDROmorphone 1 MG/1 ML SYRINGE IV PRN ×5 (06:16→20:30)
[2020-01-25] MEDS: Ondansetron 4 mg VIAL 2 MG/ML 2 ml VIAL IV PRN ×2 (06:16→15:38)
[2020-01-25 06:31] LABS: ABS Basophils 0.1 10^3/ul (0-0.2); ABS Eosinophils 0.1 10^3/ul (0-0.6); ABS Lymphocytes 0.5 10^3/ul (1.0-4.8); ABS Monocytes 1.4 10^3/ul (0-0.8); ABS Neutrophils 12.5 10^3/ul (1.5-7.7); Eosinophil % 0.4 %; Hematocrit 32 % (42-52); Hemoglobin 9.4 g/dL (14.0-18.0); Lymphocyte % 3.7 %; Mean Corpuscular HGB Conc 30 g/dL (31-36); Mean Corpuscular Hemoglobin 23 pg (27-31); Mean Corpuscular Volume 76 fL (80-94); Mean Platelet Volume 8.2 fL (7.4-10.4); Platelet Count 231 10^3/uL (150-450); Red Cell Distribution Width 24 % (10-15); White Blood Count 14.6 10^3/uL (3.5-10.8)
[2020-01-25 06:39] LABS: Albumin 2.7 g/dL (3.2-5.2); Albumin/Globulin Ratio 0.8 (1-3); BUN/Creatinine Ratio 16.4 (8-20); Calcium 9.2 mg/dL (8.6-10.3); EGFR African American 68.3 (>60); EGFR Non-African American 56.4 (>60); Globulin 3.3 g/dL (2-4); Indirect Bilirubin 0.4 mg/dL (0.3-1.0); Potassium 4.1 mmol/L (3.5-5.0); Total Bilirubin 0.7 mg/dL (0.2-1.0)
[2020-01-25 06:42] LABS: Albumin 2.8 g/dL (3.2-5.2); Albumin/Globulin Ratio 0.9 (1-3); Globulin 3.2 g/dL (2-4); Indirect Bilirubin 0.4 mg/dL (0.3-1.0); Total Bilirubin 0.7 mg/dL (0.2-1.0)
[2020-01-25] MEDS ORDERED: Magnesium Hydroxide LIQ 30 ML UDC PO PRN (10:36)
[2020-01-25] MEDS ORDERED: Polyethylene Glycol 3350 17 GM PACKET PO PRN (10:36)
[2020-01-25] MEDS ORDERED: Senna TAB 8.6 mg TAB PO PRN (10:36)
[2020-01-25] MEDS: Magnesium Hydroxide LIQ 30 ML UDC PO SCH ×2 (11:24→20:20)
[2020-01-25] MEDS: Cholestyramine Resin 4 GM POWDER PO SCH (11:28)
[2020-01-25] MEDS: Prochlorperazine 5 mg/ml 2 ml VIAL (10 mg) IV PRN (12:58)
[2020-01-26] MEDS: Magnesium Hydroxide LIQ 30 ML UDC PO SCH (08:03)
[2020-01-26] MEDS: HYDROmorphone 1 MG/1 ML SYRINGE IV PRN (08:06)
[2020-01-26 09:23] LABS: EGFR African American 95.7 (>60); EGFR Non-African American 79.1 (>60); Potassium 3.8 mmol/L (3.5-5.0)
[2020-01-26] MEDS ORDERED: HYDROmorphone 1 MG/1 ML SYRINGE IV SLOW PU ONE (11:45)
[2020-01-26] MEDS: Cholestyramine Resin 4 GM POWDER PO SCH (12:15)
[2020-01-26 15:32] VITALS: BP 159/81
== END 2020-01-26 18:35 | disposition home or self-care (01) | DRG 282 ==
LOC: ED 19:27 → MED 01-23 00:53
PROVIDERS: ADMIT Internal Medicine; ATTEND Student in an Organized Health Care Education/Training Program

== ENCOUNTER 2020-11-23 11:27 | Inpatient (IN) ==
[2020-11-23] MEDS ORDERED: Morphine 4 MG/ML VIAL (1 ml) IV ONE ×2 (12:40→16:21)
[2020-11-23] MEDS ORDERED: NS 0.9% 1000 ml BAG 1,000 ML IV ONE (12:40)
[2020-11-23] MEDS ORDERED: diPHENhydraMINE IV 50 MG/ML 1 ml VIAL (BENADRYL) SLOW PUSH ONE (12:57)
[2020-11-23] MEDS ORDERED: Ondansetron 4 mg VIAL 2 MG/ML 2 ml VIAL IV ONE (12:57)
[2020-11-23 13:35] LABS: ABS Eosinophils 0.1 10^3/ul (0-0.6); ABS Lymphocytes 0.9 10^3/ul (1.0-4.8); ABS Monocytes 0.5 10^3/ul (0-0.8); ABS Neutrophils 6.2 10^3/ul (1.5-7.7); Eosinophil % 1.5 %; Hematocrit 40 % (42-52); Hemoglobin 13.5 g/dL (14.0-18.0); Lymphocyte % 12.1 %; Mean Corpuscular HGB Conc 34 g/dL (31-36); Mean Corpuscular Hemoglobin 30 pg (27-31); Mean Corpuscular Volume 91 fL (80-94); Nucleated Red Blood Cells % 0.1; Platelet Count 169 10^3/uL (150-450); Red Blood Count 4.45 10^6 /uL (4.18-5.48); Red Cell Distribution Width 15 % (10-15); White Blood Count 7.8 10^3/uL (3.5-10.8)
[2020-11-23 13:55] LABS: Troponin I 0.01 ng/mL (<0.03)
[2020-11-23 13:59] LABS: Albumin 3.2 g/dL (3.2-5.2); Albumin/Globulin Ratio 1.1 (1-3); Calcium 8.5 mg/dL (8.6-10.3); EGFR African American 90.5 (>60); EGFR Non-African American 74.8 (>60); Globulin 2.8 g/dL (2-4); Potassium 3.7 mmol/L (3.5-5.0); Total Bilirubin 1.3 mg/dL (0.2-1.0)
[2020-11-23] MEDS ORDERED: Iodixanol (CONTRAST) 320 MG/ML 100 ML SDV IV ONE (14:16)
[2020-11-23] MEDS ORDERED: NS 0.9% 1000 ml BAG 1,000 ML IV SCH (18:45)
[2020-11-23] MEDS ORDERED: HYDROmorphone 0.5 MG/0.5 ML SYRINGE IV PRN (18:49)
[2020-11-23] MEDS ORDERED: HYDROCORTISONE 2.5% PR SCH (19:30)
[2020-11-23] MEDS ORDERED: [UNRECOGNIZED DRUG - OTHER] PR SCH (19:30)
[2020-11-23 20:41] LABS: C Reactive Protein 12.02 mg/L (<8.01)
[2020-11-23] MEDS: Lactated Ringers 1000 ml BAG 1,000 ML IV SCH (21:52)
[2020-11-24 00:58] LABS: Magnesium 1.8 mg/dL (1.9-2.7)
[2020-11-24] MEDS: HYDROmorphone 1 MG/1 ML SYRINGE IV PRN ×5 (03:10→12:18)
[2020-11-24 07:15] LABS: ABS Eosinophils 0.1 10^3/ul (0-0.6); ABS Lymphocytes 0.7 10^3/ul (1.0-4.8); ABS Monocytes 0.8 10^3/ul (0-0.8); ABS Neutrophils 7.3 10^3/ul (1.5-7.7); Hematocrit 45 % (42-52); Hemoglobin 15.4 g/dL (14.0-18.0); Lymphocyte % 8.2 %; Mean Corpuscular HGB Conc 34 g/dL (31-36); Mean Corpuscular Hemoglobin 31 pg (27-31); Mean Corpuscular Volume 91 fL (80-94); Mean Platelet Volume 7.9 fL (7.4-10.4); Platelet Count 159 10^3/uL (150-450); Red Blood Count 4.95 10^6 /uL (4.18-5.48); Red Cell Distribution Width 15 % (10-15); White Blood Count 8.9 10^3/uL (3.5-10.8)
[2020-11-24 07:26] LABS: Calcium 8.5 mg/dL (8.6-10.3); EGFR African American 99.1 (>60); EGFR Non-African American 81.9 (>60); Potassium 3.7 mmol/L (3.5-5.0)
[2020-11-24] MEDS: Pantoprazole VIAL 40 MG VIAL IV SCH (08:32)
[2020-11-24] MEDS ORDERED: Aspirin EC 81 mg TAB.EC (enteric coated) PO SCH (09:00)
[2020-11-24] MEDS: Lactated Ringers 1000 ml BAG 1,000 ML IV SCH (09:38)
[2020-11-24] MEDS: Ondansetron 4 mg VIAL 2 MG/ML 2 ml VIAL IV PRN (14:44)
[2020-11-24] MEDS ORDERED: Acetaminophen IV 1 GM/100ML 100 ML IV PRN (21:16)
[2020-11-25] MEDS: Morphine 2 MG/ML SYRINGE IV PRN ×2 (04:14→08:02)
[2020-11-25 07:58] LABS: Hematocrit 42 % (42-52); Hemoglobin 14.3 g/dL (14.0-18.0); Mean Corpuscular HGB Conc 34 g/dL (31-36); Mean Corpuscular Hemoglobin 31 pg (27-31); Mean Corpuscular Volume 90 fL (80-94); Mean Platelet Volume 8.4 fL (7.4-10.4); Platelet Count 155 10^3/uL (150-450); Red Blood Count 4.67 10^6 /uL (4.18-5.48); Red Cell Distribution Width 15 % (10-15); White Blood Count 15.1 10^3/uL (3.5-10.8)
[2020-11-25] MEDS: Pantoprazole VIAL 40 MG VIAL IV SCH (08:01)
[2020-11-25 08:16] LABS: Albumin 3.2 g/dL (3.2-5.2); Albumin/Globulin Ratio 1.1 (1-3); Calcium 8.4 mg/dL (8.6-10.3); EGFR African American 106.7 (>60); EGFR Non-African American 88.2 (>60); Indirect Bilirubin 1.5 mg/dL (0.3-1.0); Potassium 3.8 mmol/L (3.5-5.0); Total Bilirubin 2.5 mg/dL (0.2-1.0); Total Protein 6.2 g/dL (6.4-8.9)
[2020-11-25] MEDS ORDERED: Piperacillin/Tazobac ADVAN 3.375 GM in NS 0.9% 100 ml BAG 100 ML IV ONE (14:00)
[2020-11-25] MEDS ORDERED: Zosyn per Pharmacy NOTE FOLLOW UP SCH (14:00)
[2020-11-25] MEDS ORDERED: HYDROmorphone 1 MG/1 ML SYRINGE IV PRN ×2 (16:29→16:33)
[2020-11-25] MEDS: HYDROmorphone 1 MG/1 ML SYRINGE IV PRN (19:33)
[2020-11-25] MEDS: ZOSYN 3.375 GM Q8H per EXTENDED INFUSION IV SCH (20:46)
[2020-11-26] MEDS: HYDROmorphone 1 MG/1 ML SYRINGE IV PRN ×5 (01:37→22:23)
[2020-11-26] MEDS: ZOSYN 3.375 GM Q8H per EXTENDED INFUSION IV SCH ×3 (03:17→20:13)
[2020-11-26 05:53] LABS: ABS Eosinophils 0.1 10^3/ul (0-0.6); ABS Lymphocytes 0.9 10^3/ul (1.0-4.8); ABS Monocytes 1.1 10^3/ul (0-0.8); ABS Neutrophils 9.8 10^3/ul (1.5-7.7); Eosinophil % 0.9 %; Hematocrit 42 % (42-52); Hemoglobin 13.6 g/dL (14.0-18.0); Lymphocyte % 7.5 %; Mean Corpuscular HGB Conc 33 g/dL (31-36); Mean Corpuscular Hemoglobin 30 pg (27-31); Mean Corpuscular Volume 93 fL (80-94); Mean Platelet Volume 7.9 fL (7.4-10.4); Platelet Count 166 10^3/uL (150-450); Red Blood Count 4.51 10^6 /uL (4.18-5.48); Red Cell Distribution Width 16 % (10-15); White Blood Count 11.9 10^3/uL (3.5-10.8)
[2020-11-26 06:05] LABS: Urine Appearance Clear; Urine Bilirubin Negative (Negative); Urine Blood Negative (Negative); Urine Color Amber; Urine Glucose Negative (Negative); Urine Ketones Negative (Negative); Urine Nitrite Negative (Negative); Urine Protein 2+(100 mg/dL) (Negative); Urine Specific Gravity 1.032 (1.002-1.030); Urine Urobilinogen Positive (Negative)
[2020-11-26 06:06] LABS: Albumin/Globulin Ratio 0.9 (1-3); Calcium 8.6 mg/dL (8.6-10.3); EGFR African American 99.1 (>60); EGFR Non-African American 81.9 (>60); Globulin 3.2 g/dL (2-4); Magnesium 1.9 mg/dL (1.9-2.7); Potassium 3.9 mmol/L (3.5-5.0); Total Bilirubin 2.3 mg/dL (0.2-1.0); Total Protein 6.2 g/dL (6.4-8.9)
[2020-11-26 06:13] LABS: Urine Bacteria Absent (Absent); Urine Red Blood Cell 1+(3-5/hpf) (Absent); Urine Squamous Epithelial Cell Present (Absent); Urine White Blood Cell Trace(0-5/hpf) (Absent)
[2020-11-26] MEDS: Pantoprazole VIAL 40 MG VIAL IV SCH (08:10)
[2020-11-27] MEDS: Ondansetron 4 mg VIAL 2 MG/ML 2 ml VIAL IV PRN ×4 (01:49→14:42)
[2020-11-27] MEDS: HYDROmorphone 1 MG/1 ML SYRINGE IV PRN ×4 (03:35→16:08)
[2020-11-27] MEDS: ZOSYN 3.375 GM Q8H per EXTENDED INFUSION IV SCH ×2 (03:35→11:00)
[2020-11-27 06:54] LABS: Hematocrit 45 % (42-52); Mean Corpuscular HGB Conc 33 g/dL (31-36); Mean Corpuscular Hemoglobin 31 pg (27-31); Mean Corpuscular Volume 91 fL (80-94); Mean Platelet Volume 8.7 fL (7.4-10.4); Platelet Count 189 10^3/uL (150-450); Red Blood Count 4.93 10^6 /uL (4.18-5.48); Red Cell Distribution Width 16 % (10-15); White Blood Count 11.5 10^3/uL (3.5-10.8)
[2020-11-27 06:55] LABS: Calcium 8.7 mg/dL (8.6-10.3); Potassium 3.6 mmol/L (3.5-5.0)
[2020-11-27 07:01] LABS: EGFR African American 102.8 (>60); EGFR Non-African American 84.9 (>60)
[2020-11-27] MEDS ORDERED: NS 0.9% 1000 ml BAG 1,000 ML IV SCH (13:00)
[2020-11-27] MEDS ORDERED: diPHENhydraMINE IV 50 MG/ML 1 ml VIAL (BENADRYL) IV ONE (14:15)
[2020-11-27] MEDS ORDERED: Iohexol 300 (CONTRAST) 10 ML SDV IV ONE (17:28)
[2020-11-27] MEDS ORDERED: Rocuronium 50 mg VIAL 10 mg/ml 5 ml VIAL (50 mg) ONE (19:14)
[2020-11-27] MEDS ORDERED: Succinylcholine 200 mg VIAL 20 mg/ml 10 ml VIAL (200 mg) ONE (19:14)
[2020-11-27] MEDS ORDERED: Etomidate 40 mg/20 ml (2 MG/ML) 20 ml VIAL (40 mg) ONE (19:19)
[2020-11-27] MEDS ORDERED: Propofol 10 mg/ml 100 ML BTL 100 ML ONE (19:21)
[2020-11-27] MEDS ORDERED: Norepinephrine 16MCG/ML IVPRE 4,000 MCG/250 ML BAG IV ONE (19:26)
[2020-11-27] MEDS ORDERED: fentaNYL 100 mcg/2 ml 50 MCG/ML VIAL ONE (19:34)
[2020-11-27 20:19] VITALS: BP 82/70
[2020-11-27 20:29] LABS: Urine Appearance Cloudy; Urine Bilirubin Negative (Negative); Urine Blood 2+ (Negative); Urine Color Amber; Urine Glucose Negative (Negative); Urine Ketones Negative (Negative); Urine Nitrite Negative (Negative); Urine Protein 2+(100 mg/dL) (Negative); Urine Urobilinogen Positive (Negative)
[2020-11-27] MEDS ORDERED: Amiodarone IV 150 mg/3 ml VIAL ONE (20:30)
[2020-11-27] MEDS ORDERED: EPINEPHrine SYR 0.1MG/ML 10 ml SYRINGE ONE (20:30)
[2020-11-27 20:37] LABS: Urine Bacteria 1+ (Absent); Urine Red Blood Cell 3+(>10/hpf) (Absent); Urine Squamous Epithelial Cell Present (Absent); Urine White Blood Cell 2+(11-20/hpf) (Absent)
[2020-11-27 20:57] LABS: Urine Specific Gravity 1.047 (1.002-1.030)
== END 2020-11-27 20:36 | disposition expired | DRG 254 ==
LOC: ED 11:27 → SUATTDRO 18:44 → SSU 18:44 → MEDTELE 11-24 07:38 → ICU 11-27 19:01
PROVIDERS: ADMIT Internal Medicine; ATTEND Internal Medicine